=== PATIENT | female | born 1975 | race Two or more races ===

== ENCOUNTER 2019-12-22 17:03 | Outpatient (REF) | payer OTHER, SELFPAY ==
[2019-12-22 18:01] LABS: COVID-19 Test Negative (Negative)
== END 2019-12-22 17:04 | disposition home or self-care (01) ==
LOC: HO.LAB 17:03
PROVIDERS: Visit Provider Internal Medicine
DX: Z20.828 Contact with and (suspected) exposure to other viral communicable diseases (principal)
CPT/HCPCS: 87635

== ENCOUNTER 2019-12-31 16:34 | Outpatient (REF) | payer OTHER, SELFPAY ==
[2019-12-31 17:00] LABS: COVID-19 Test Negative (Negative)
== END 2019-12-31 16:35 | disposition home or self-care (01) ==
LOC: HO.LAB 16:34
PROVIDERS: Visit Provider Internal Medicine
DX: Z20.828 Contact with and (suspected) exposure to other viral communicable diseases (principal)
CPT/HCPCS: 87635

== ENCOUNTER 2021-09-21 20:40 | Outpatient (REF) | payer OTHER, SELFPAY ==
[2021-09-21 22:06] LABS: Influenza A PCR NEGATIVE (Negative); Influenza B PCR NEGATIVE (Negative); Resp Syncy Virus RNA Qual PCR NEGATIVE (Negative); SARS COV2 PCR INHOUSE POSITIVE (Negative)
== END 2021-09-21 20:41 | disposition home or self-care (01) ==
LOC: HO.LAB 20:40
PROVIDERS: Visit Provider Internal Medicine
DX: Z20.822 Contact with and (suspected) exposure to COVID-19 (principal)
CPT/HCPCS: 0241U

== ENCOUNTER 2022-04-01 05:55 | Outpatient (REF) | payer OTHER, SELFPAY ==
[2022-04-01 06:23] LABS: COVID-19 Test Negative (Negative); IDNOW Serial# BCCEAD1C
[2022-04-01 06:24] LABS: IDNOW Serial# 16C4AD1C; Influenza A Negative (Negative); Influenza B2 Positive (Negative)
== END 2022-04-01 05:56 | disposition home or self-care (01) ==
LOC: HO.LAB 05:55
PROVIDERS: Internal Medicine; Visit Provider Emergency Medicine
DX: Z20.822 Contact with and (suspected) exposure to COVID-19 (principal)
CPT/HCPCS: 87502; 87635

== ENCOUNTER 2023-01-02 03:29 | Emergency (ER) | payer OTHER, SELFPAY ==
--- NOTE | ~2023-01-02 | XR_ITS ---
EXAMINATION: XR ANKLE, LEFT CLINICAL INFORMATION: Left ankle injury. COMPARISON: None available. TECHNIQUE: AP, lateral, and mortise views of the left ankle. FINDINGS: The bone mineralization is normal. The joint spaces are maintained. There appears to be mild lateral soft tissue swelling. There is no fracture. XR/XR ankle LT min 3V IMPRESSION: There appears to be mild lateral soft tissue swelling. No acute osseous abnormality.
[2023-01-02 03:32] VITALS: BP 160/89; PULSE 108; RESP 20; TEMP 36.8; O2SAT 98; BMI 25.0
--- NOTE | 2023-01-02 04:33 | PC.NURSE ---
Duane wrap applied to left ankle.
[2023-01-02] MEDS: Ketorolac Tromethamine 60 MG/2 ML VIAL IM (06:29)
--- NOTE | 2023-01-02 06:44 | ED.LOWEXIN ---
HPI - Extremity Injury (Lower) General Chief Complaint: Extremity Injury, Lower Stated Complaint: L Ankle Pain Time Seen by Provider: 01/02/23 06:04 Source: patient Mode of arrival: ambulatory Limitations: no limitations History of Present Illness HPI Narrative: Patient comes to the emergency room complaining of left ankle pain. Patient was walking of a curve, sprain her ankle. Patient complaining of pain with ambulation and swelling around the lateral aspect of the ankle. Patient denies any other injury. Related Data Previous Rx's Medication Instructions Recorded ketorolac 10 mg tablet 10 mg PO TID PRN pain 5 days #14 01/02/23 tabs oxycodone 5 mg tablet 5 mg PO BID PRN pain #6 tabs 01/02/23 Allergies Allergy/AdvReac Type Severity Reaction Status Date / Time Iodinated Contrast Media Allergy Unknown ANAPHYLAXIS Verified 01/02/23 03:32 [CONTRAST, IV] latex [LATEX] Allergy Unknown HIVES Verified 01/02/23 03:32 meperidine [From DEMEROL] Allergy Unknown UNKNOWN Verified 01/02/23 03:32 Review of Systems Review of Systems: Constitutional : No Weight loss, No Fever, No Chills, No Night Sweats, No Fatigue, No Malaise ENT/Mouth : No Hearing loss, No Ear Pain, No Nasal Congestion, No Sinus Pain, No Hoarseness, No sore throat, No Rhinorrhea, No Swallowing Difficulty Eyes: No Eye Pain, No Swelling, No Redness, No Foreign Body, No Discharge, No Vision Changes Cardiovascular : No Chest Pain, No SOB, No Dyspnea on Exertion, No Orthopnea, No Edema, No Palpitations Respiratory : No Cough, No Sputum, No Wheezing, No Smoke Exposure, No Dyspnea Gastrointestinal : No Nausea, No Vomiting, No Diarrhea, No Constipation, No abdominal Pain, No Hematochezia, No Melena Genitourinary : no irregular bleeding, No Dysuria, No Urinary Frequency, No Hematuria, No Urinary Incontinence, No Urgency, No Flank Pain, No Urinary Flow Changes, No Hesitancy Musculoskeletal : Complaining of left ankle pain, No Myalgias, No Joint Swelling Skin : No Skin Lesions, No rash Neuro : No Weakness, No Numbness, No Paresthesias, No Loss of Consciousness, No Dizziness, No Headache Psych : No Anxiety/Panic, No Depression, No SI/HI/AH/VH, No Social Issues, Heme/Lymph: No Bruising, No Bleeding,No Lymphadenopathy Endocrine : No Polyuria, No Polydipsia, No Temperature Intolerance [facility] Past Medical History Medical History (Updated 01/02/23 @ 06:47 by Dorys Membreno MD) Hypertension SLE (systemic lupus erythematosus related syndrome) Social History Social History Advance Directives: No Advance Directives Information Provided: Yes Physical Exam Vital Signs: Vital Signs: Last Vital Signs Temp 98.2 F 01/02/23 03:32 Pulse 108 H 01/02/23 03:32 Resp 20 01/02/23 03:32 BP 160/89 H 01/02/23 03:32 Pulse Ox 98 01/02/23 03:32 O2 Del Method Room Air 01/02/23 03:32 BMI result Body Mass Index 25.0 Const: Other: Appearance: Alert. Oriented X3. No acute distress. Eyes: Pupils equal, round and reactive to light. ENT: Pharynx normal. Neck: Normal inspection. Neck supple. No lymph nodes noted. No crepitus CVS: Normal heart rate and rhythm. Pulses normal. Normal S1 and S2 Respiratory: No respiratory distress. Breath sounds normal. No Wheezing. No rales Abdomen: Soft and nontender. No rigidity. No distention. Skin: Skin warm and dry. Normal skin color. Normal skin turgor. Extremities: There is swelling to the lateral malleolus of the left ankle. Patient able to ambulate but limping Neuro: Oriented X 3. No motor deficit. No sensory deficit. Moving all extremities. No slurred speech. CN 2 through 12 grossly intact Psych: calm, cooperative, normal affect Medications Administered Discontinued Medications Generic Name Dose Route Start Last Admin Trade Name Umerq PRN Reason Stop Dose Admin Ketorolac Tromethamine 60 mg 01/02/23 06:08 01/02/23 06:29 Ketorolac Tromethamine 60 Mg/2 Ml Vial IM 01/02/23 06:09 60 mg ONCE ONE Administration Medical Decision Making Medical Decision Making MDM Narrative: -patient was given IM Toradol -patient provided with postop shoe. -Discussed with the patient to ice rest elevate extremity, early range of motion exercises encouraged without pushing through pain Independent Interpretation I performed an independent interpretation of an: Plain X-Ray Radiology Impression Discussion of test interpretation with radiology: I have reviewed the radiologist's reading. Radiologist Impression: FINDINGS: The bone mineralization is normal. The joint spaces are maintained. There appears to be mild lateral soft tissue swelling. There is no fracture. XR/XR ankle LT min 3V IMPRESSION: There appears to be mild lateral soft tissue swelling. No acute osseous abnormality. Discharge Plan Discharge Clinical Impression: Ankle sprain Patient Disposition: Home, Self-Care Instructions: Ankle Sprain (ED) Additional Instructions: Please follow-up with your primary care physician tomorrow. If you have any worsening or new symptoms, please return to the emergency room or call 911 Prescriptions: New ketorolac 10 mg tablet 10 mg PO TID PRN (Reason: pain) 5 Days Qty: 14 0RF Rx Instructions: Do not use this medication with NSAIDs oxycodone 5 mg tablet 5 mg PO BID PRN (Reason: pain) Qty: 6 0RF Rx Instructions: Partial Fill upon patient request. Only use of ketorolac does not work for pain. avoid using narcotics
== END 2023-01-02 06:57 | disposition home or self-care (01) ==
PROVIDERS: Emergency Provider Emergency Medicine
DX: S93.402A Sprain of unspecified ligament of left ankle, initial encounter (principal); X50.1XXA Overexertion from prolonged static or awkward postures, initial encounter; Y93.9 Activity, unspecified; Y92.9 Unspecified place or not applicable; Y99.9 Unspecified external cause status; Z79.899 Other long term (current) drug therapy
CPT/HCPCS: 73610; 96372; 99283; 99284; J1885

== ENCOUNTER 2023-11-07 17:41 | Inpatient (IN) | payer SELFPAY ==
--- NOTE | ~2023-11-07 | CT_ITS ---
EXAMINATION: CT ABDOMEN AND PELVIS WITHOUT CONTRAST CLINICAL INFORMATION: Right lower quadrant pain COMPARISON: None available. TECHNIQUE: Multidetector volumetric imaging was performed from the superior aspect of the liver through the pubic symphysis. Sagittal and coronal reformatted images were obtained on the technologist's workstation. This CT examination was performed using dose optimization techniques as appropriate, variously including the following: *Automated exposure control *Adjustment of mA and/or kV according to patient size (this includes techniques or standardized protocols for targeted exams where dose is matched to indication/reason for exam; i.e. extremities or head) *Use of iterative reconstruction technique DLP: 400 mGy-cm FINDINGS: LUNG BASES: Partial imaging of a nonspecific 4 mm pulmonary nodule right lung base posteriorly. Minor scarring within the middle lobe. Breast implants partially imaged. No pericardial fluid. LIVER, GALLBLADDER, AND BILIARY TREE: Changes of diffuse hepatic steatosis. Prominent left lobe of the liver. No dominant lesion on this nonenhanced study. Biliary tree normal. The gallbladder is unremarkable with no evidence of radiopaque gallstones, gallbladder wall thickening, or obvious pericholecystic inflammatory changes. PANCREAS: Unremarkable. SPLEEN: Unremarkable. ADRENAL GLANDS: Unremarkable. KIDNEYS AND URETERS: Multiple small bilateral intrarenal calculi without hydronephrosis. Largest left lower pole measuring up to 6 mm. No perinephric abnormality. BLADDER: Unremarkable. GASTROINTESTINAL TRACT: The small and large bowel are unremarkable. The appendix is retrocecal and measures up to 5 mm. There is minimal haziness around the periappendiceal fat which could represent early inflammation. No appendicolith or fluid collection. ABDOMINAL WALL: No significant hernia is appreciated. LYMPH NODES: Normal. VASCULAR: Unremarkable. PELVIC VISCERA: Unremarkable. OSSEOUS STRUCTURES: Unremarkable. CT/CT abdomen pelvis wo IV con IMPRESSION: 1. The appendix is retrocecal and measures up to 5 mm. There is minimal haziness around the periappendiceal fat which could represent early inflammation. No appendicolith or fluid collection. 2. Bilateral nonobstructing renal calculi. 3. Hepatic steatosis. Nonspecific right lower lobe pulmonary nodule. According to the UPDATED 2017 Fleischner Society recommendations, the advised follow-up imaging for Right solid pulmonary nodule measuring 4 mm. Per Fleischner Society Guidelines, no routine follow-up imaging is recommended. These guidelines do not apply to immunocompromised patients and patients with cancer. Follow up in patients with significant comorbidities as clinically warranted. For lung cancer screening, adhere to Lung-RADS guidelines. Reference: Radiology. 2017; 284(1):228-43. Fleischner guidelines were followed. Electronically signed by: Laz Abbott MD 11/07/2023 09:12 PM EDT
--- NOTE | ~2023-11-07 | US_ITS ---
EXAMINATION: US PELVIS CLINICAL INFORMATION: Right lower quadrant pain COMPARISON: None available. TECHNIQUE: Ultrasound of the pelvis is performed using both transabdominal and transvaginal transducers along with Doppler. Transvaginal imaging is performed due to inadequate visualization transabdominally. FINDINGS: Uterus: The uterus is anteverted and measures 6.8 x 2.8 x 3.2 cm. The double wall endometrial thickness is 3 mm. The uterus is smooth in contour and has normal myometrial echogenicity. No visible fibroid. Adnexa: Right ovary normal at 2 mL's in volume. Normal flow. No adnexal lesion. Left ovary absent consistent with surgical history. There is no pelvic ascites or fluid collection. US/US pelvic and transvaginal IMPRESSION: No focal lesion. Electronically signed by: Laz Abbott MD 11/07/2023 09:15 PM EDT
[2023-11-07 17:43] VITALS: BP 180/112; PULSE 92; RESP 18; TEMP 36.4; O2SAT 98; BMI 24.6
--- NOTE | 2023-11-07 17:44 | ED.GENADULT ---
HPI - General Adult General Chief complaint: Abdominal Pain Stated complaint: RT abd pain Time Seen by Provider: 11/07/23 17:54 Source: patient Mode of arrival: ambulatory Limitations: no limitations History of Present Illness HPI narrative: Patient is a 48-year-old female with past medical history of breast cancer s/p double mastectomy and chemotherapy in 2015, ovarian cysts, right oophorectomy, history of peripartum cardiomyopathy in 2007 presents to the emergency department for evaluation. Reports over the past 4 days she has been experiencing hypertension, SBP 180s despite taking her lisinopril 20 mg. She has even increased it to 40 mg over the past few days without any improvement. She reports that today she awoke from a nap this afternoon and she was experiencing pain to her right lower abdomen with associated nausea. Pain has progressively worsened and increased in intensity. She admits to a history of ruptured ovarian cysts in the past resulting in an oophorectomy on the right. Endorses having a uterine ablation in or around 2009, and has subsequently not had a menstrual period since then. Denies fevers or chills. Denies symptoms. Denies abnormal vaginal pain or discharge. No vaginal bleeding. Related Data Previous Rx's ?Medication ?Instructions ?Recorded ketorolac 10 mg tablet 10 mg PO TID PRN pain 5 days #14 01/02/23 tabs oxycodone 5 mg tablet 5 mg PO BID PRN pain #6 tabs 01/02/23 cefuroxime axetil 500 mg tablet 500 mg PO BID 10 days #20 tabs 01/20/23 Allergies Allergy/AdvReac Type Severity Reaction Status Date / Time Iodinated Contrast Media Allergy Unknown ANAPHYLAXIS Verified 11/07/23 17:45 [CONTRAST, IV] latex [LATEX] Allergy Unknown HIVES Verified 11/07/23 17:45 meperidine [From DEMEROL] Allergy Unknown UNKNOWN Verified 11/07/23 17:45 Review of Systems Review of Systems: Yes all other systems are reviewed and are negative PMFSH Past Medical History Attestation statement: The following information was validated with the patient. Source: old records reviewed Medical History Hypertension SLE (systemic lupus erythematosus related syndrome) Social History Social History Smoked in Last 30 Days: No Use of substances other than those prescribed or required for medical reasons: No Advance Directives: No Advance Directives Information Provided: No Do you have a plan to hurt others: No Plan Patient : No Physical Exam ED Vital Signs: Vital Signs - 24 hr 11/07/23 17:43 11/07/23 18:49 11/07/23 21:35 Temperature 97.6 F 98.1 F Pulse Rate 92 91 90 Respiratory Rate 18 20 17 Blood Pressure 180/112 H 188/110 H 173/95 H Pulse Oximetry 98 98 90 L Oxygen Delivery Method Room Air Room Air Room Air BMI result Body Mass Index 24.6 Appearance: Alert.?Oriented to person, place and time. No acute distress.?Normal affect. Eyes: Pupils equal, round and reactive to light.? ENT: Pharynx normal.?? Neck: Normal inspection.? Neck supple.?? CVS: Heart sounds normal. Normal heart rate and rhythm.? Pulses normal.?? Respiratory: No respiratory distress.? Lung sounds clear to auscultation bilaterally?? Abdomen: Soft with right lower quadrant tenderness upon palpation, no rebound tenderness. Positive guarding, Normoactive bowel sounds. No pulsatile mass.?? Skin: Skin warm and dry.? Normal skin color.? Extremities: No lower extremity edema.? Neuro: Moves all extremities spontaneously. Sensation intact bilaterally. Ambulates with normal steady gait. Course Course Course Narrative: RME performed by Mona Flowers PA-C. Patient is a 48 year old assigned female at presenting to the emergency department with abdominal pain. Patient states she has been having some significant abdominal pain over the last day. Detailed physical exam and review of systems are deferred to the house painter helper. Labs, imaging, and swabs ordered. Patient placed back in the waiting room pending room availability and results. Reevaluation(s) Reevaluation #1: Reviewed CT imaging, did not see acute changes to suggest appendicitis, reviewed this with my attending doctor's 80. Obtaining pelvic ultrasound for possible ovarian etiology. Pain persist despite ketorolac, will trial management with morphine at this time. Hypertension has improved 156/93 Reevaluation #2: Patient signed out to ED attending Dr. Baez pending CT AP an ultrasound impression and re-evaluation. Time: 21:03 Reevaluation #3: The patient was signed out to me at change of shift pending the results of a CT scan of the abdomen and pelvis and also an ultrasound of the pelvis. The patient has a history of a left oophorectomy. The CT scan had an equivocal finding of possible early appendicitis. The ultrasound of the pelvis showed no acute findings. On exam the patient is really quite tender in her right lower quadrant. The patient has a mildly abnormal urinalysis but she denies urinary symptoms such as dysuria, urgency, or frequency. Given the degree of tenderness in the absence of any good alternative diagnosis I have some concern the patient is problem is really early appendicitis. I consulted Dr. Esquivel of General surgery. The plan will be to hospitalize the patient for IV antibiotics and further evaluation. I have ordered ceftriaxone and metronidazole. Time: 21:52 Medications Administered Discontinued Medications Generic Name Dose Route Start Last Admin Trade Name Freq PRN Reason Stop Dose Admin Sodium Chloride 1,000 mls @ 999 mls/hr 11/07/23 18:45 11/07/23 20:15 Ns IV 11/07/23 19:45 Infused .Q1H1M ALEXIS Infusion Ketorolac Tromethamine 15 mg 11/07/23 18:37 11/07/23 18:54 Ketorolac Tromethamine 15 Mg/Ml Vial IVPUSH 11/07/23 18:38 15 mg ONCE ONE Administration Morphine Sulfate 4 mg 11/07/23 20:06 11/07/23 20:11 Morphine Sulfate 4 Mg/Ml Cartridge IVPUSH 11/07/23 20:07 4 mg ONCE ONE Administration Protocol Ondansetron HCl 4 mg 11/07/23 18:37 11/07/23 18:54 Ondansetron Hcl 4 Mg/2 Ml Vial IVPUSH 11/07/23 18:38 4 mg ONCE ONE Administration Medical Decision Making Medical Decision Making [facility] Narrative: Patient is a 48-year-old female with past medical history of breast cancer s/p double mastectomy and chemotherapy in 2016, ovarian cysts, right oophorectomy, history of peripartum cardiomyopathy in 2008 presents emergency department for evaluation of sudden-onset right lower quadrant pain today as per HPI and uncontrolled hypertension. Will obtain CBC to evaluate for leukocytosis/ anemia, CMP and lipase to evaluate for abnormal electrolytes /abnormal renal function/ abnormal hepatic/biliary function, CT AP and Urinalysis. Differential Diagnosis Differential Diagnoses: The differential diagnosis associated with the presentation includes (Appendicitis, colitis, less likely obstruction, ovarian cyst, ruptured ovarian cyst, ovarian torsion, less likely TOA, UTI, pyelonephritis) Admission/Observation Consideration of admission/observation: Escalation of care including admission/observation considered Lab Data MDM Lab Attestation statement: I reviewed the patient's lab results. CBC is without leukocytosis, anemia, or thrombocytopenia. 11/07/23 18:02 11/07/23 18:50 Labs: Lab Results 11/07/23 11/07/23 11/07/23 Range/Units 18:02 18:21 18:40 WBC 10.3 (4.8-10.8) X10*3/uL RBC 4.25 (4.20-5.50) X10*6/uL Hgb 13.3 (12.0-16.0) g/dl Hct 37.8 (37.0-47.0) % MCV 88.9 (80.0-98.0) fL MCH 31.3 (27.0-33.0) pg MCHC 35.2 H (31.0-35.0) g/dl RDW 13.2 (11.0-16.0) % Plt Count 204 (160-400) X10*3/uL MPV 10.1 (9.4-12.3) fL Immature Gran % (Auto) 0.5 H (0.0-0.4) % Neut % (Auto) 69.9 (45-73) % Lymph % (Auto) 23.7 (20-40) % Gilchrist % (Auto) 4.1 (2-11) % Eos % (Auto) 1.3 (0-4) % Baso % (Auto) 0.5 (0-2) % Lymph # (Auto) 2.4 (1.2-4.9) X10*3/uL Gilchrist # (Auto) 0.4 (0.1-1.2) X10*3/uL Eos # (Auto) 0.1 (0.0-0.4) X10*3/uL Baso # (Auto) 0.1 (0.0-0.2) X10*3/uL Abs Immat Gran (auto) 0.05 H (0.00-0.03) X10*3/uL Absolute Neuts (auto) 7.2 (2.0-8.3) x10*3/uL Absolute Nucleated RBC 0.000 (0.0-0.012) X10*3/uL Nucleated RBC % (auto) 0.0 (0.0-0.2) /100WBC Smear Tech's Comments VERIFIED Hold Purple Top SEE NOTE PT 12.5 (11.1-13.3) SEC INR 1.0 (0.9-1.1) APTT 26.7 (26.0-36.8) SEC Hold Blue Top Sodium (135-145) mmol/L Potassium (3.3-5.1) mmol/L Chloride (96-108) mmol/L Carbon Dioxide (22-29) mmol/L Anion Gap (12-20) BUN (9-16) mg/dL Creatinine (0.5-1.4) mg/dL Estim Creat Clear Calc Estimated GFR Random Glucose (60-115) mg/dL Calcium (8.4-10.2) mg/dL Magnesium (1.6-2.6) mg/dL Total Bilirubin (0.0-1.0) mg/dL AST (5-31) U/L ALT (0-31) U/L Alkaline Phosphatase (39-117) U/L Troponin I High Sens (<3.5-17.0) ng/L C-Reactive Protein (< or = 0.50) mg/dL Total Protein (6.5-8.0) g/dL Albumin (3.5-5.0) g/dL Beta HCG, Quant mIU/mL Urine Color Urine Appearance Urine pH (5.0-9.0) Ur Specific [place] (1.005-1.025) Urine Protein (Neg-Trace) mg/dL Urine Glucose (UA) (Negative) mg/dL Urine Ketones (Negative) mg/dL Urine Blood (Negative) Urine Nitrite (Negative) Ur Leukocyte Esterase (Negative) Urine RBC (0-2) /HPF Urine WBC (0-5) /HPF Ur Squamous Epith Cells (0-2) /HPF Urine Bacteria (None Seen) Hyaline Casts (0-2) /LPF Influenza Type A (PCR) NEGATIVE (Negative) Influenza Type B (PCR) NEGATIVE (Negative) RSV RNA Qual (PCR) NEGATIVE (Negative) SARS-CoV-2 RNA (RT-PCR) NEGATIVE (Negative) 11/07/23 11/07/23 Range/Units 18:45 18:50 WBC (4.8-10.8) X10*3/uL RBC (4.20-5.50) X10*6/uL Hgb (12.0-16.0) g/dl Hct (37.0-47.0) % MCV (80.0-98.0) fL MCH (27.0-33.0) pg MCHC (31.0-35.0) g/dl RDW (11.0-16.0) % Plt Count (160-400) X10*3/uL MPV (9.4-12.3) fL Immature Gran % (Auto) (0.0-0.4) % Neut % (Auto) (45-73) % Lymph % (Auto) (20-40) % Gilchrist % (Auto) (2-11) % Eos % (Auto) (0-4) % Baso % (Auto) (0-2) % Lymph # (Auto) (1.2-4.9) X10*3/uL [place] # (Auto) (0.1-1.2) X10*3/uL Eos # (Auto) (0.0-0.4) X10*3/uL Baso # (Auto) (0.0-0.2) X10*3/uL Abs Immat Gran (auto) (0.00-0.03) X10*3/uL Absolute Neuts (auto) (2.0-8.3) x10*3/uL Absolute Nucleated RBC (0.0-0.012) X10*3/uL Nucleated RBC % (auto) (0.0-0.2) /100WBC Smear Tech's Comments Hold Purple Top SEE NOTE PT (11.1-13.3) SEC INR (0.9-1.1) APTT (26.0-36.8) SEC Hold Blue Top SEE NOTE Sodium 141 (135-145) mmol/L Potassium 3.7 (3.3-5.1) mmol/L Chloride 105 (96-108) mmol/L Carbon Dioxide 24 (22-29) mmol/L Anion Gap 16 (12-20) BUN 16 (9-16) mg/dL Creatinine 0.97 (0.5-1.4) mg/dL Estim Creat Clear Calc 57.9 Estimated GFR > 60 Random Glucose 95 (60-115) mg/dL Calcium 9.4 (8.4-10.2) mg/dL Magnesium 1.9 (1.6-2.6) mg/dL Total Bilirubin 0.4 (0.0-1.0) mg/dL AST 26 (5-31) U/L ALT 28 (0-31) U/L Alkaline Phosphatase 68 (39-117) U/L Troponin I High Sens < 2.7 (<3.5-17.0) ng/L C-Reactive Protein 0.27 (< or = 0.50) mg/dL Total Protein 7.5 (6.5-8.0) g/dL Albumin 4.2 (3.5-5.0) g/dL Beta HCG, Quant < 2 mIU/mL Urine Color Yellow Urine Appearance Clear Urine pH 7.5 (5.0-9.0) Ur Specific [place] 1.010 (1.005-1.025) Urine Protein Negative (Neg-Trace) mg/dL Urine Glucose (UA) Negative (Negative) mg/dL Urine Ketones Negative (Negative) mg/dL Urine Blood Negative (Negative) Urine Nitrite Negative (Negative) Ur Leukocyte Esterase Moderate (2+) H (Negative) Urine RBC 0-2 (0-2) /HPF Urine WBC 21-50 H (0-5) /HPF Ur Squamous Epith Cells 0-2 (0-2) /HPF Urine Bacteria None Seen (None Seen) Hyaline Casts 0-2 (0-2) /LPF Influenza Type A (PCR) (Negative) Influenza Type B (PCR) (Negative) RSV RNA Qual (PCR) (Negative) SARS-CoV-2 RNA (RT-PCR) (Negative) Radiology Impression Discussion of test interpretation with radiology: I have reviewed the radiologist's reading. External Record Review External record reviewed: Outpatient record Discharge Plan Discharge Clinical Impression: Abdominal pain Prescriptions: No Action ketorolac 10 mg tablet 10 mg PO TID PRN (Reason: pain) 5 Days Qty: 14 0RF Rx Instructions: Do not use this medication with NSAIDs oxycodone 5 mg tablet 5 mg PO BID PRN (Reason: pain) Qty: 6 0RF Rx Instructions: Partial Fill upon patient request. Only use of ketorolac does not work for pain. avoid using narcotics cefuroxime axetil 500 mg tablet 500 mg PO BID 10 Days Qty: 20 0RF Print Language: [place] Zealander
--- NOTE | 2023-11-07 17:45 | ECG_ITS ---
Test Reason : ABD PAIN Blood Pressure : / mmHG Vent. Rate : 093 BPM Atrial Rate : 093 BPM P-R Int : 134 ms QRS Dur : 092 ms QT Int : 386 ms P-R-T Axes : 044 024 018 degrees QTc Int : 479 ms Normal sinus rhythm Normal ECG When compared with ECG of 17-JUN-2019 12:26, T wave inversion no longer evident in Anterior leads Referred By: Mona Flowers Electronically Signed By:CAROLYN FU
[2023-11-07 18:29] LABS: Eosinophils Percent Auto 1.3 % (0-4); Imm Gran Abs Auto 0.05 X10*3/uL (0.00-0.03); Imm Gran Pct Auto 0.5 % (0.0-0.4); MANUAL DIFF FLAG SCAN; PLT CLUMP 1; Red Blood Count 4.25 X10*6/uL (4.20-5.50); SCAN SMEAR FLAG 1
[2023-11-07 18:31] LABS: Basophils Absolute Auto 0.1 X10*3/uL (0.0-0.2); Basophils Percent Auto 0.5 % (0-2); Eosinophils Absolute Auto 0.1 X10*3/uL (0.0-0.4); Hematocrit 37.8 % (37.0-47.0); Hemoglobin 13.3 g/dl (12.0-16.0); Lymphocytes Absolute Auto 2.4 X10*3/uL (1.2-4.9); Lymphocytes Percent Auto 23.7 % (20-40); Mean Corpuscular HGB Conc 35.2 g/dl (31.0-35.0); Mean Corpuscular Hemoglobin 31.3 pg (27.0-33.0); Mean Corpuscular Volume 88.9 fL (80.0-98.0); Mean Platelet Volume 10.1 fL (9.4-12.3); Monocytes Absolute Auto 0.4 X10*3/uL (0.1-1.2); Monocytes Percent Auto 4.1 % (2-11); Neutrophils Absolute Auto 7.2 x10*3/uL (2.0-8.3); Neutrophils Percent Auto 69.9 % (45-73); Red Cell Distribution Width 13.2 % (11.0-16.0); White Blood Count 10.3 X10*3/uL (4.8-10.8)
[2023-11-07 18:32] LABS: Platelet Count 204 X10*3/uL (160-400)
[2023-11-07 18:42] LABS: SLIDE REVIEW VERIFIED
[2023-11-07 18:49] VITALS: BP 188/110; PULSE 91; RESP 20; O2SAT 98
[2023-11-07] MEDS: ondansetron HCL 4 MG/2 ML VIAL IVPUSH (18:54)
[2023-11-07] MEDS: Ketorolac Tromethamine 15 MG/ML VIAL IVPUSH (18:54)
[2023-11-07] MEDS: 0.9 % Sodium Chloride 1,000 ML 999 ML IV (18:59)
[2023-11-07 19:02] LABS: Influenza A PCR NEGATIVE (Negative); Influenza B PCR NEGATIVE (Negative); Resp Syncy Virus RNA Qual PCR NEGATIVE (Negative); SARS COV2 PCR INHOUSE NEGATIVE (Negative)
[2023-11-07 19:06] LABS: Prothrombin Time 12.5 SEC (11.1-13.3)
[2023-11-07 19:09] LABS: Partial Thromboplastin Time 26.7 SEC (26.0-36.8)
[2023-11-07 19:18] LABS: Appearance Urine Clear; Color Urine Yellow; Glucose Urine UA Negative (Negative); Leukocyte Esterase Urine Moderate (2+) (Negative); Nitrite Urine Negative (Negative); PH 7.5 (5.0-9.0); UMIC TRIGGER UACC YES; Urine Blood Negative (Negative); Urine Ketones Negative (Negative); Urine Protein Negative (Neg-Trace)
[2023-11-07 19:19] LABS: Alanine Aminotransferase 28 U/L (0-31); Albumin Level 4.2 g/dL (3.5-5.0); Alkaline Phosphatase 68 U/L (39-117); Anion Gap 16 (12-20); Aspartate Amino Transferase 26 U/L (5-31); Bilirubin Total 0.4 mg/dL (0.0-1.0); Blood Urea Nitrogen 16 mg/dL (9-16); Calcium 9.4 mg/dL (8.4-10.2); Carbon Dioxide 24 mmol/L (22-29); Chloride 105 mmol/L (96-108); Creatinine Clr Calc Pharmacy 57.9; Estimated Glomerular Filt Rate > 60; Glucose Random 95 mg/dL (60-115); Magnesium 1.9 mg/dL (1.6-2.6); Potassium 3.7 mmol/L (3.3-5.1); Sodium 141 mmol/L (135-145); Total Protein 7.5 g/dL (6.5-8.0)
[2023-11-07 19:20] LABS: HCG Quantitative < 2 mIU/mL; Troponin-I High Sensitivity < 2.7 ng/L (<3.5-17.0)
[2023-11-07 19:25] LABS: Bacteria Urine None Seen (None Seen); Hyaline Casts Urine 0-2 /LPF (0-2); RBC Urine 0-2 /HPF (0-2); Squamous Epithelial Cell Urine 0-2 /HPF (0-2); UACC Culture Trigger YES; WBC Urine 21-50 /HPF (0-5)
--- NOTE | 2023-11-07 19:35 | PC.NURSE ---
Report taken from Louise DAILY, assumed care of pt at this time. A&Ox3 skin pwd respirations even unlabored endorsing continued RLQ pain despite previously administered pain med. IVF infusing without difficulty, awaiting CT aware of plan of care.
[2023-11-07] MEDS: Morphine Sulfate 4 MG/ML CARTRIDGE IVPUSH (20:11)
--- NOTE | 2023-11-07 20:19 | PC.NURSE ---
Pt medicated with additional pain med for 8 RLQ pain. Off floor to US.
[2023-11-07 21:35] VITALS: BP 173/95; PULSE 90; RESP 17; TEMP 36.7; O2SAT 90
[2023-11-07 21:38] LABS: C Reactive Protein 0.27 mg/dL (< or = 0.50)
--- NOTE | 2023-11-07 22:16 | MHC.EDTECH ---
Patient belongings list completed and placed in room 14 chart
[2023-11-07] MEDS: Acetaminophen 1,000 MG/100 ML PIGGYBACK 400 MG IV (22:17)
--- NOTE | 2023-11-07 22:22 | PHA.MEDREC ---
Addendum entered by Iker Scott [facility] 11/07/23 22:34: MED REC CHECKED BY [facility] Original Note: Pharmacy Consult ? Medication Reconciliation Pharmacy has completed the medication reconciliation. Spoke to patient to confirm med list. Patient states she took 40 mg of Lisinopril today because she needed it, otherwise she is on Lisinopril 20 mg daily.
--- NOTE | 2023-11-07 22:32 | MHC.EDTECH ---
Patient NPO per RN
[2023-11-07] MEDS: cefTRIAXone sodium 2 GM in 0.9 % Sodium Chloride 50 ML IV (22:43)
--- NOTE | 2023-11-07 22:54 | PC.NURSE ---
Pt to be admitted. IV tylenol admin with some relief, IV abx hung and infusing without difficulty. Awaiting bed assignment for admission, aware of plan of care.
[2023-11-07] MEDS: metroNIDAZOLE/NS 500 MG/100 ML PIGGYBACK 100 MG IV (23:18)
--- NOTE | 2023-11-07 23:25 | MHC.EDTECH ---
This tech took over care at [id number]
[2023-11-07] MEDS: HYDROmorphone HCl 0.5 MG/0.5 ML SYRINGE IVPUSH (23:35)
[2023-11-07 23:47] VITALS: BP 123/77; PULSE 88; RESP 16; O2SAT 98
[2023-11-08] VITALS (9 sets, daily range): BP systolic 150–182; BP diastolic 76–94; PULSE 68–79; RESP 12–18; TEMP 36–36.3; O2SAT 95–98
[2023-11-08] MEDS: Dextrose 5 % and Lactated Ring 1,000 ML 125 ML IVCONT ×4 (00:32→23:46)
[2023-11-08] MEDS: Flu Vacc TS2024-25(6mos up)/PF 0.5 ML SYRINGE IM (00:38)
[2023-11-08] MEDS: 0.9 % Sodium Chloride Flush 3 ML SYRINGE IVFLUSH (00:50)
[2023-11-08] MEDS: oxyCODONE HCl Immed Release 5 MG TABLET PO ×4 (00:50→23:11)
[2023-11-08] MEDS: Acetaminophen 1,000 MG/100 ML PIGGYBACK 400 MG IV ×3 (06:13→17:24)
[2023-11-08 06:31] LABS: MANUAL DIFF FLAG NO
[2023-11-08] MEDS: metroNIDAZOLE/NS 500 MG/100 ML PIGGYBACK 100 MG IV ×3 (06:31→23:46)
[2023-11-08 06:53] LABS: Basophils Percent Auto 0.2 % (0-2); Eosinophils Absolute Auto 0.1 X10*3/uL (0.0-0.4); Eosinophils Percent Auto 1.5 % (0-4); Hematocrit 33.8 % (37.0-47.0); Hemoglobin 11.4 g/dl (12.0-16.0); Imm Gran Abs Auto 0.04 X10*3/uL (0.00-0.03); Imm Gran Pct Auto 0.5 % (0.0-0.4); Lymphocytes Absolute Auto 1.6 X10*3/uL (1.2-4.9); Mean Corpuscular HGB Conc 33.7 g/dl (31.0-35.0); Mean Corpuscular Hemoglobin 30.5 pg (27.0-33.0); Mean Corpuscular Volume 90.4 fL (80.0-98.0); Mean Platelet Volume 9.4 fL (9.4-12.3); Monocytes Absolute Auto 0.5 X10*3/uL (0.1-1.2); Monocytes Percent Auto 5.5 % (2-11); Neutrophils Absolute Auto 6.3 x10*3/uL (2.0-8.3); Neutrophils Percent Auto 73.3 % (45-73); Platelet Count 164 X10*3/uL (160-400); Red Blood Count 3.74 X10*6/uL (4.20-5.50); Red Cell Distribution Width 13.4 % (11.0-16.0); White Blood Count 8.6 X10*3/uL (4.8-10.8)
--- NOTE | 2023-11-08 07:55 | PM.HPGS ---
History of Present Illness History of Present Illness Date of Service: 11/08/23 Chief complaint: Acute appendicitis Narrative: Megan Sanders is a 48 year old female presenting with complaints of abdominal pain in the right lower quadrant which began suddenly in the afternoon yesterday (11/07/2023). The pain was associated with nausea and anorexia and increased in severity throughout the day. She denied fever or chills. She did have a prior history of a ruptured ovarian cyst on the left side resulting in oophorectomy. She also has a past history of breast cancer and has previously undergone bilateral mastectomy and chemotherapy in 2016; peripartum cardiomyopathy in 2007, and hypertension. The pain is noted to increase with movement but remains mainly in the right lower quadrant. Workup in the emergency department did reveal a normal WBC of 10.3. CT abdomen and pelvis revealed the appendix in a retrocecal location measuring 5 mm with minimal haziness around the periappendiceal fat which could represent early appendicitis. No appendicolith or fluid collection was then identified. Findings were felt to possibly be early appendicitis. Pelvic ultrasound revealed a normal right ovary and absent left ovary, no pelvic fluid collections. She was admitted to the surgical service for further management of this possible early acute appendicitis. This morning she feels somewhat improved although does note the pain to increase when her pain medication wears off. She denies any fever or chills. Review of Systems Review of Systems: Yes all other systems are reviewed and are negative Constitutional: Constitutional: Denies chills, Denies fever(s), Denies headache(s), Reports poor appetite and Denies weakness ENT: Denies headache(s) Cardiovascular: Cardiovascular: Denies chest pain, Denies irregular heart rhythm, Denies palpitations and Denies dyspnea Respiratory: Respiratory: Denies cough, Denies excessive phlegm production and Denies dyspnea Gastrointestinal: Gastrointestinal: Reports as per HPI, Reports abdominal pain, Denies bloating, Denies change in bowel habits, Denies constipation, Denies heartburn, Denies diarrhea, Reports nausea and Denies vomiting Genitourinary: Genitourinary: Denies urinary frequency Musculoskeletal: Musculoskeletal: Denies back pain, Denies muscle weakness and Denies numbness Integumentary/Breasts: Skin/Breast: Denies changing lesions and Denies unusual bruising Neurologic: Denies headache(s), Denies numbness, Denies paresthesias and Denies weakness Endocrine: Endocrine: Denies palpitations Hematologic/Lymphatic: Hematologic/Lymphatic: Denies lymphadenopathy [facility] Past Medical History Medical History (Updated 11/08/23 @ 08:15 by Diaz Esquivel MD) Breast cancer Hypertension SLE (systemic lupus erythematosus related syndrome) Surgical History Surgical History (Updated 11/08/23 @ 08:06 by Diaz Esquivel MD) History of left oophorectomy H/O breast reconstruction H/O bilateral mastectomy Social History Social History Household Members: Spouse Housing: House Do you presently have visiting nurse or other home services: No Patient Tobacco Use Status: Never used Tobacco Smoked in Last 30 Days: No Use of substances other than those prescribed or required for medical reasons: No Have you been hit, kicked, punched, or otherwise hurt by someone within the past year? If so, by whom?: No Do you feel safe in your current relationship?: Yes Is there a partner from a previous relationship who is making you feel unsafe now?: No Are you made to feel afraid or neglected: No Advance Directives: No Advance Directives Information Provided: No Do you have a plan to hurt others: No Plan Recently lost weight without trying: No Eating poorly because of decreased appetite: No Nutrition Risks: No Nutritional Risk Patient : No : No Poor oral hygiene: No Meds Allergies Allergy/AdvReac Type Severity Reaction Status Date / Time Iodinated Contrast Media Allergy Unknown ANAPHYLAXIS Verified 11/07/23 17:45 [CONTRAST, IV] latex [LATEX] Allergy Unknown HIVES Verified 11/07/23 17:45 meperidine [From DEMEROL] Allergy Unknown UNKNOWN Verified 11/07/23 17:45 Active Medications: Current Medications Calcium Carbonate (Calcium Carbonate 750 Mg Tab.Chew) 750 mg PO Q4H PRN PRN Reason: Heartburn Hydromorphone HCl (Hydromorphone Hcl 0.5 Mg/0.5 Ml Syringe) 0.5 mg IVPUSH Q3H PRN; Protocol PRN Reason: Pain, Severe (Pain Scale 7-10) Last Admin: 11/07/23 23:35 Dose: 0.5 mg Acetaminophen (Ofirmev) 1,000 mg in 100 mls @ 400 mls/hr IV Q6H [facility] Stop: 11/09/23 00:14 Last Infusion: 11/08/23 06:32 Dose: Infused Dextrose/Lactated Ringer's (D5lr) 1,000 mls @ 125 mls/hr IVCONT .Q8H [facility] Last Infusion: 11/08/23 07:46 Dose: 125 mls/hr Ceftriaxone Sodium 1 gm/ (Sodium Chloride) 50 mls @ 100 mls/hr IV Q12H [facility] Metronidazole (Flagyl) 500 mg in 100 mls @ 100 mls/hr IV Q8H [facility] Last Infusion: 11/08/23 07:46 Dose: Infused Magnesium Hydroxide (Milk Of Magnesia 30 Ml Oral.Susp) 30 ml PO DAILY PRN PRN Reason: Constipation Ondansetron HCl (Ondansetron Hcl 4 Mg/2 Ml Vial) 4 mg IVPUSH Q8H PRN PRN Reason: Nausea Oxycodone HCl (Oxycodone Hcl Immed Release 5 Mg Tablet) 5 mg PO Q6H PRN PRN Reason: Pain, Moderate(Pain Scale 4-6) Last Admin: 11/08/23 06:29 Dose: 5 mg Sodium Chloride (0.9 % Sodium Chloride Flush 3 Ml Syringe) [facility] Last Admin: 11/08/23 07:25 Dose: Not Given Zolpidem Tartrate (Zolpidem Tartrate 5 Mg Tablet) 5 mg PO BEDTIME PRN PRN Reason: Insomnia Home Medications ?Medication ?Instructions ?Recorded ?Confirmed ?Last Taken ?Type gabapentin 100 mg capsule 100 mg PO DAILY PRN Pain 11/07/23 11/07/23 Unknown History gabapentin 100 mg capsule 200 mg PO BEDTIME PRN Pain 11/07/23 11/07/23 Unknown History lisinopril 20 mg tablet 20 mg PO DAILY 11/07/23 11/07/23 11/07/23 History trazodone 50 mg tablet 25 mg PO BEDTIME 11/07/23 11/07/23 11/06/23 History Physical Exam Vital Signs: Vital Signs: Last Vital Signs Temp 97.2 F 11/08/23 04:00 Pulse 72 11/08/23 04:00 Resp 14 11/08/23 04:00 BP 150/77 H 11/08/23 04:00 Pulse Ox 97 11/08/23 04:00 O2 Del Method Room Air 11/08/23 04:00 BMI result Body Mass Index 24.6 Const: General: cooperative and no acute distress Nutritional Appearance: well nourished Orientation/consciousness: patient oriented x3 Limitations: no limitations HEENT: Head: Yes normocephalic and Yes atraumatic Ears: hearing grossly normal bilaterally Resp: Effort & Inspection: normal respiratory effort, no audible wheezes, no cough and no respiratory distress Cardio: Jugular venous distension: no JVD GI: Inspection: Yes normal to inspection Palpation (GI): Soft to palpation, Tenderness to palpation present (GI) in the RLQ and Rovsing's sign positive; with no rebound tenderness, no guarding and not rigid Skin: Other: Warm, dry, no rash Neuro: General: patient oriented x3 Extrem: General: Yes no clubbing, cyanosis or edema Results Results Labs: Short CBC 11/07/23 11/08/23 Range/Units 18:02 05:30 WBC 10.3 8.6 (4.8-10.8) X10*3/uL Hgb 13.3 11.4 L (12.0-16.0) g/dl Hct 37.8 33.8 L (37.0-47.0) % Plt Count 204 164 (160-400) X10*3/uL BMP 11/07/23 18:50 Sodium 141 Potassium 3.7 Chloride 105 Carbon Dioxide 24 BUN 16 Creatinine 0.97 Calcium 9.4 Liver Function 11/07/23 Range/Units 18:50 Total Bilirubin 0.4 (0.0-1.0) mg/dL AST 26 (5-31) U/L ALT 28 (0-31) U/L Alkaline Phosphatase 68 (39-117) U/L Albumin 4.2 (3.5-5.0) g/dL Urine 11/07/23 Range/Units 18:45 Urine Color Yellow Urine Appearance Clear Urine pH 7.5 (5.0-9.0) Ur Specific [place] 1.010 (1.005-1.025) Urine Protein Negative (Neg-Trace) mg/dL Urine Glucose (UA) Negative (Negative) mg/dL Additional studies: CT abdomen and pelvis: CT/CT abdomen pelvis wo IV con IMPRESSION: 1. The appendix is retrocecal and measures up to 5 mm. There is minimal haziness around the periappendiceal fat which could represent early inflammation. No appendicolith or fluid collection. 2. Bilateral nonobstructing renal calculi. 3. Hepatic steatosis. Nonspecific right lower lobe pulmonary nodule. According to the UPDATED 2017 Fleischner Society recommendations, the advised follow-up imaging for Right solid pulmonary nodule measuring 4 mm. Per Fleischner Society Guidelines, no routine follow-up imaging is recommended. These guidelines do not apply to immunocompromised patients and patients with cancer. Follow up in patients with significant comorbidities as clinically warranted. For lung cancer screening, adhere to Lung-RADS guidelines. Reference: Radiology. 2017; 284(1):228-43. Fleischner guidelines were followed. Electronically signed by: Laz Abbott MD 11/07/2023 09:12 PM EDT RP Assessment and Plan (1) Acute appendicitis: Qualifiers: Acute appendicitis type: with localized peritonitis Appendicitis gangrene presence: without gangrene Appendicitis perforation presence: without perforation Appendicitis abscess presence: without abscess Qualified Code(s): K35.30 - Acute appendicitis with localized peritonitis, without perforation or gangrene Status: Acute (2) Hypertension: Qualifiers: Hypertension type: primary hypertension Qualified Code(s): I10 - Essential (primary) hypertension Status: Acute Plan 48-year-old female patient presenting with complaints of abdominal pain in the right lower quadrant which began on 11/07/2023 and awoke the patient from sleep. Pain was mainly located in the right lower quadrant and was associated with nausea without fever or chills. On examination the patient is noted to be tender in the right lower quadrant with a positive Rovsing sign. CT abdomen and pelvis confirms inflammatory changes of the periappendiceal fat suggestive of early appendicitis. No fecalith is identified. Hypertension: Will consult hospitalist for further management. Quality Stroke Does the patient have a stroke diagnosis?: No VTE Prior VTE?: No VTE Risk Level:: Surgical - low VTE Device Contraindication: N/A - Device Ordered VTE Drug Contraindication: Treatment Not Indicated Procedures Date of Service Date of Service: 11/08/23
[2023-11-08] MEDS: cefTRIAXone sodium 1 GM in 0.9 % Sodium Chloride 50 ML IV ×2 (10:07→23:12)
[2023-11-08] MEDS: lisinopriL 20 MG TABLET PO (10:07)
--- NOTE | 2023-11-08 11:12 | P.CONIM_ITS ---
History of Present Illness Data of Consult Service Date: 11/08/23 Requesting physician: Diaz Esquivel Primary Care Provider: Unknown Physician HPI Reason for consult: HTN, medical management This is a [age]-year-old female with history of hypertension, lupus who presented to the emergency department with abdominal pain found to have possible early acute appendicitis. She was admitted to the surgical team for further management. The hospitalist service was asked to see her in consultation for medical management and assistance with managing hypertension. Patient states that for the past week or so her blood pressure has been uncontrolled, over the past 4 days she has doubled her dose of lisinopril but her blood pressure still remains elevated. Right side of the abdominal pain has improved somewhat. Review of Systems 2 Review of Systems: Yes all other systems are reviewed and are negative Constitutional: Constitutional: Denies chills and Denies fever(s) Cardiovascular: Cardiovascular: Denies chest pain and Denies palpitations Gastrointestinal: Gastrointestinal: Reports abdominal pain Endocrine: Endocrine: Denies palpitations [facility] Medical History Breast cancer Hypertension SLE (systemic lupus erythematosus related syndrome) Surgical History History of left oophorectomy H/O breast reconstruction H/O bilateral mastectomy Social History Household Members: Spouse Housing: House Do you presently have visiting nurse or other home services: No Patient Tobacco Use Status: Never used Tobacco Smoked in Last 30 Days: No Use of substances other than those prescribed or required for medical reasons: No Currently Displaying Signs/Symptoms of Drug Intoxication Withdrawal: No Have you been hit, kicked, punched, or otherwise hurt by someone within the past year? If so, by whom?: No Do you feel safe in your current relationship?: Yes Is there a partner from a previous relationship who is making you feel unsafe now?: No Are you made to feel afraid or neglected: No Advance Directives: No Advance Directives Information Provided: No Do you have a plan to hurt others: No Plan Recently lost weight without trying: No Eating poorly because of decreased appetite: No Nutrition Risks: No Nutritional Risk Patient : No : No Poor oral hygiene: No Meds Allergies Allergy/AdvReac Type Severity Reaction Status Date / Time Iodinated Contrast Media Allergy Unknown ANAPHYLAXIS Verified 11/07/23 17:45 [CONTRAST, IV] latex [LATEX] Allergy Unknown HIVES Verified 11/07/23 17:45 meperidine [From DEMEROL] Allergy Unknown UNKNOWN Verified 11/07/23 17:45 Active Medications: Current Medications Calcium Carbonate (Calcium Carbonate 750 Mg Tab.Chew) 750 mg PO Q4H PRN PRN Reason: Heartburn Hydromorphone HCl (Hydromorphone Hcl 0.5 Mg/0.5 Ml Syringe) 0.5 mg IVPUSH Q3H PRN; Protocol PRN Reason: Pain, Severe (Pain Scale 7-10) Last Admin: 11/07/23 23:35 Dose: 0.5 mg Acetaminophen (Ofirmev) 1,000 mg in 100 mls @ 400 mls/hr IV Q6H [facility] Stop: 11/09/23 00:14 Last Infusion: 11/08/23 06:32 Dose: Infused Dextrose/Lactated Ringer's (D5lr) 1,000 mls @ 125 mls/hr IVCONT .Q8H [facility] Last Admin: 11/08/23 10:07 Dose: 125 mls/hr Ceftriaxone Sodium 1 gm/ (Sodium Chloride) 50 mls @ 100 mls/hr IV Q12H [facility] Last Infusion: 11/08/23 10:47 Dose: Infused Metronidazole (Flagyl) 500 mg in 100 mls @ 100 mls/hr IV Q8H [facility] Last Infusion: 11/08/23 07:46 Dose: Infused Lisinopril (Lisinopril 20 Mg Tablet) 20 mg PO DAILY [facility]; Protocol Last Admin: 11/08/23 10:07 Dose: 20 mg Magnesium Hydroxide (Milk Of Magnesia 30 Ml Oral.Susp) 30 ml PO DAILY PRN PRN Reason: Constipation Ondansetron HCl (Ondansetron Hcl 4 Mg/2 Ml Vial) 4 mg IVPUSH Q8H PRN PRN Reason: Nausea Oxycodone HCl (Oxycodone Hcl Immed Release 5 Mg Tablet) 5 mg PO Q6H PRN PRN Reason: Pain, Moderate(Pain Scale 4-6) Last Admin: 11/08/23 06:29 Dose: 5 mg Sodium Chloride (0.9 % Sodium Chloride Flush 3 Ml Syringe) 3 ml IVFLUSH QSHIFT [facility] Last Admin: 11/08/23 07:25 Dose: Not Given Trazodone HCl (Trazodone Hcl 25 Mg Halftab) 25 mg PO BEDTIME [facility] Zolpidem Tartrate (Zolpidem Tartrate 5 Mg Tablet) 5 mg PO BEDTIME PRN PRN Reason: Insomnia Home Medications ?Medication ?Instructions ?Recorded ?Confirmed ?Last Taken ?Type gabapentin 100 mg capsule 100 mg PO DAILY PRN Pain 11/07/23 11/07/23 Unknown History gabapentin 100 mg capsule 200 mg PO BEDTIME PRN Pain 11/07/23 11/07/23 Unknown History lisinopril 20 mg tablet 20 mg PO DAILY 11/07/23 11/07/23 11/07/23 History trazodone 50 mg tablet 25 mg PO BEDTIME 11/07/23 11/07/23 11/06/23 History Physical Exam 2 Vital Signs and Narrative: Vital Signs: Last Vital Signs Temp 96.8 F 11/08/23 08:06 Pulse 69 11/08/23 08:06 Resp 12 11/08/23 08:06 BP 182/76 H 11/08/23 10:07 Pulse Ox 95 11/08/23 08:06 O2 Del Method Room Air 11/08/23 08:06 BMI result Body Mass Index 24.6 Const: General: cooperative, comfortable, no acute distress, alert and awake Nutritional Appearance: average body habitus Orientation/consciousness: p atient oriented x3 Resp: Effort & Inspection: normal respiratory effort, able to speak in complete sentences, no respiratory distress and no use of accessory muscles Cardio: Rate: regular rate GI: Other: RLQ TTP, abdomen soft, non-distend, no rebound Neuro: General: patient oriented x3, moves all extremities and CN's II-XI intact bilaterally Results Labs 11/08/23 05:30 11/07/23 18:50 Labs: Laboratory Results - last 24 hr 11/07/23 11/07/23 11/07/23 18:02 18:21 18:40 MCV 88.9 MCH 31.3 MCHC 35.2 H RDW 13.2 Plt Count 204 MPV 10.1 Immature Gran % (Auto) 0.5 H Neut % (Auto) 69.9 Lymph % (Auto) 23.7 [place] % (Auto) 4.1 Eos % (Auto) 1.3 Baso % (Auto) 0.5 Lymph # (Auto) 2.4 [place] # (Auto) 0.4 Eos # (Auto) 0.1 Baso # (Auto) 0.1 Abs Immat Gran (auto) 0.05 H Absolute Neuts (auto) 7.2 Absolute Nucleated RBC 0.000 Nucleated RBC % (auto) 0.0 Smear Tech's Comments VERIFIED Hold Purple Top SEE NOTE PT 12.5 INR 1.0 APTT 26.7 Hold Blue Top Anion Gap Estim Creat Clear Calc Estimated GFR Random Glucose Calcium Magnesium Total Bilirubin AST ALT Alkaline Phosphatase Troponin I High Sens C-Reactive Protein Total Protein Albumin Beta HCG, Quant Urine Color Urine Appearance Urine pH Ur Specific [place] Urine Protein Urine Glucose (UA) Urine Ketones Urine Blood Urine Nitrite Ur Leukocyte Esterase Urine RBC Urine WBC Ur Squamous Epith Cells Urine Bacteria Hyaline Casts Influenza Type A (PCR) NEGATIVE Influenza Type B (PCR) NEGATIVE RSV RNA Qual (PCR) NEGATIVE SARS-CoV-2 RNA (RT-PCR) NEGATIVE 11/07/23 11/07/23 11/08/23 18:45 18:50 05:30 MCV 90.4 MCH 30.5 MCHC 33.7 RDW 13.4 Plt Count 164 MPV 9.4 Immature Gran % (Auto) 0.5 H Neut % (Auto) 73.3 H Lymph % (Auto) 19.0 L [place] % (Auto) 5.5 Eos % (Auto) 1.5 Baso % (Auto) 0.2 Lymph # (Auto) 1.6 [place] # (Auto) 0.5 Eos # (Auto) 0.1 Baso # (Auto) 0.0 Abs Immat Gran (auto) 0.04 H Absolute Neuts (auto) 6.3 Absolute Nucleated RBC 0.000 Nucleated RBC % (auto) 0.0 Smear Tech's Comments Hold Purple Top SEE NOTE PT INR APTT Hold Blue Top SEE NOTE Anion Gap 16 Estim Creat Clear Calc 57.9 Estimated GFR > 60 Random Glucose 95 Calcium 9.4 Magnesium 1.9 Total Bilirubin 0.4 AST 26 ALT 28 Alkaline Phosphatase 68 Troponin I High Sens < 2.7 C-Reactive Protein 0.27 Total Protein 7.5 Albumin 4.2 Beta HCG, Quant < 2 Urine Color Yellow Urine Appearance Clear Urine pH 7.5 Ur Specific [place] 1.010 Urine Protein Negative Urine Glucose (UA) Negative Urine Ketones Negative Urine Blood Negative Urine Nitrite Negative Ur Leukocyte Esterase Moderate (2+) H Urine RBC 0-2 Urine WBC 21-50 H Ur Squamous Epith Cells 0-2 Urine Bacteria None Seen Hyaline Casts 0-2 Influenza Type A (PCR) Influenza Type B (PCR) RSV RNA Qual (PCR) SARS-CoV-2 RNA (RT-PCR) Imaging Radiologist's Impressions: Impressions Abdomen/Pelvis CT 11/07/23 18:41 IMPRESSION: 1. The appendix is retrocecal and measures up to 5 mm. There is minimal haziness around the periappendiceal fat which could represent early inflammation. No appendicolith or fluid collection. 2. Bilateral nonobstructing renal calculi. 3. Hepatic steatosis. Nonspecific right lower lobe pulmonary nodule. According to the UPDATED 2017 Fleischner Society recommendations, the advised follow-up imaging for Right solid pulmonary nodule measuring 4 mm. Per Fleischner Society Guidelines, no routine follow-up imaging is recommended. These guidelines do not apply to immunocompromised patients and patients with cancer. Follow up in patients with significant comorbidities as clinically warranted. For lung cancer screening, adhere to Lung-RADS guidelines. Reference: Radiology. 2017; 284(1):228-43. Fleischner guidelines were followed. Electronically signed by: Laz Abbott MD 11/07/2023 09:12 PM EDT RP Pelvic/Transvag US 11/07/23 20:17 IMPRESSION: No focal lesion. Electronically signed by: Laz Abbott MD 11/07/2023 09:15 PM EDT RP Assessment and Plan (1) Acute appendicitis: Qualifiers: Acute appendicitis type: with localized peritonitis Appendicitis gangrene presence: without gangrene Appendicitis perforation presence: without perforation Appendicitis abscess presence: without abscess Qualified Code(s): K35.30 - Acute appendicitis with localized peritonitis, without perforation or gangrene Status: Acute (2) Hypertension: Qualifiers: Hypertension type: primary hypertension Qualified Code(s): I10 - Essential (primary) hypertension Status: Acute Plan This is a 48-year-old female with history of breast cancer status post bilateral mastectomy, lupus, hypertension who presents to the emergency department with abdominal pain found to have possible early acute appendicitis Acute abdominal pain Thought to be due to early Acute appendicitis Management as per surgical team On ceftriaxone/Flagyl Uncontrolled hypertension IVF and pain likely contributing factors Continue home dose of lisinopril, has been taking 40 mg daily. will start with 20 mg if bp remains elevated will increase to 40 pulmonary nodule h/o breast cancer recommend outpatient follow up/monitoring Thank you for allowing us to participate in the care of this patient we will follow along with you
--- NOTE | 2023-11-08 15:29 | MHC.CM.PN ---
PT REPORTS SHE LIVES WITH HER S/O AND IS INDEPENDENT WITH CARE PT HAS NO DME AND NO SERVICES AND WORKS PT WILL CONSIDER COMPLETING A NEW HCP WHILE HERE SHE DOES NOT KNOW THE NAME OF HER PCP, BUT GOES TO [facility] DCP: HOME VIA SELF TRANSPORT
[2023-11-08] MEDS: amLODIPine Besylate 5 MG TABLET PO (20:51)
[2023-11-08] MEDS: traZODone HCL 25 MG HALFTAB PO (20:51)
[2023-11-08] MEDS: Zolpidem Tartrate 5 MG TABLET PO (23:11)
[2023-11-09] VITALS (12 sets, daily range): BP systolic 136–180; BP diastolic 58–106; PULSE 75–100; RESP 14–20; TEMP 36.1–36.8; O2SAT 93–99
--- NOTE | 2023-11-09 04:07 | PC.NURSE ---
patients BP is running high, Lisinopril dose increased to 40 mg scheduled for AM. In the meanwhile patient was given Amlodipine one dose 5 mg at 20:50 with slight improvement,see computer for VS. 4 AM recheck still high 180/78. Dr Peters aware and ordered one dose of clonidine ( to be given as soon pharmacy gets it verified)
[2023-11-09] MEDS: cloNIDine HCL 0.1 MG TABLET PO (04:54)
[2023-11-09] MEDS: metroNIDAZOLE/NS 500 MG/100 ML PIGGYBACK 100 MG IV (06:31)
--- NOTE | 2023-11-09 07:54 | P.PNGS_ITS ---
Subjective Subjective Date of Service: 11/09/23 Interval history: Patient improved but continues to have abdominal pain in the right lower quadrant needing pain medications. She would like to proceed to surgery because of the continued pain. Physical Exam 2 Vital Signs: Vital Signs: Last Vital Signs Temp 97.7 F 11/09/23 03:45 Pulse 79 11/09/23 03:45 Resp 14 11/09/23 03:45 BP 180/78 H 11/09/23 03:45 Pulse Ox 98 11/09/23 03:45 O2 Del Method Room Air 11/09/23 03:45 BMI result Body Mass Index 24.6 Const: General: no acute distress Nutritional Appearance: well nourished Orientation/consciousness: patient oriented x3 Limitations: no limitations Resp: Effort & Inspection: normal respiratory effort GI: Inspection: Yes normal to inspection Palpation (GI): Soft to palpation and Tenderness to palpation present (GI) in the RLQ and Rovsing's sign positive Skin: General skin exam: no rashes or lesions noted Neuro: General: patient oriented x3 Extrem: General: Yes no clubbing, cyanosis or edema Objective Data Active Medications Calcium Carbonate (Calcium Carbonate 750 Mg Tab.Chew) 750 mg PO Q4H PRN PRN Reason: Heartburn Hydromorphone HCl (Hydromorphone Hcl 0.5 Mg/0.5 Ml Syringe) 0.5 mg IVPUSH Q3H PRN; Protocol PRN Reason: Pain, Severe (Pain Scale 7-10) Last Admin: 11/07/23 23:35 Dose: 0.5 mg Documented By: KECIA Dextrose/Lactated Ringer's (D5lr) 1,000 mls @ 125 mls/hr IVCONT .Q8H [facility] Last Infusion: 11/09/23 06:31 Dose: 0 mls/hr Documented By: FELIBERTO Ceftriaxone Sodium 1 gm/ (Sodium Chloride) 50 mls @ 100 mls/hr IV Q12H [facility] Last Infusion: 11/08/23 23:43 Dose: Infused Documented By: FELIBERTO Metronidazole (Flagyl) 500 mg in 100 mls @ 100 mls/hr IV Q8H [facility] Last Infusion: 11/09/23 07:47 Dose: Infused Documented By: EV Lisinopril (Lisinopril 40 Mg Tablet) 40 mg PO DAILY [facility]; Protocol Magnesium Hydroxide (Milk Of Magnesia 30 Ml Oral.Susp) 30 ml PO DAILY PRN PRN Reason: Constipation Ondansetron HCl (Ondansetron Hcl 4 Mg/2 Ml Vial) 4 mg IVPUSH Q8H PRN PRN Reason: Nausea Oxycodone HCl (Oxycodone Hcl Immed Release 5 Mg Tablet) 5 mg PO Q6H PRN PRN Reason: Pain, Moderate(Pain Scale 4-6) Last Admin: 11/08/23 23:11 Dose: 5 mg Documented By: FELIBERTO Sodium Chloride (0.9 % Sodium Chloride Flush 3 Ml Syringe) 3 ml IVFLUSH QSHIFT [facility] Last Admin: 11/09/23 07:11 Dose: Not Given Documented By: EV Non-Admin Reason: IV Running Trazodone HCl (Trazodone Hcl 25 Mg Halftab) 25 mg PO BEDTIME [facility] Last Admin: 11/08/23 20:51 Dose: 25 mg Documented By: FELIBERTO Zolpidem Tartrate (Zolpidem Tartrate 5 Mg Tablet) 5 mg PO BEDTIME PRN PRN Reason: Insomnia Last Admin: 11/08/23 23:11 Dose: 5 mg Documented By: FELIBERTO Labs 11/08/23 05:30 11/07/23 18:50 Microbiology Microbiology Results: Microbiology 11/07/23 19:07 Urine Culture - Preliminary Urine clean catch - Clean Catch Midstream Culture in progress. Procedures Date of Service Date of Service: 11/09/23 Progress Note: A&P Assessment and plan (1) Acute appendicitis: Status: Acute Plan 48 year old female patient with complaints of abdominal pain in the right lower quadrant, found on CT to have possible early appendicitis. Her pain continues despite over 24 hours of antibiotics and I agree she would benefit from a laparoscopic or possible open appendectomy. I reviewed the procedure, alternatives and risks of laparoscopic or possible open appendectomy and she consents to the surgery. She has been added on to the OR schedule today. Time Spent With Patient Time: Total time managing care of this patient today ____ minutes. Quality Stroke Does the patient have a stroke diagnosis?: No VTE Prior VTE?: No VTE Risk Level:: Surgical - low VTE Device Contraindication: N/A - Device Ordered VTE Drug Contraindication: Treatment Not Indicated
[2023-11-09] MEDS: lisinopriL 40 MG TABLET PO (08:49)
--- NOTE | 2023-11-09 10:05 | HO.ANESPROP2 ---
COUNTS INCLUDE 234 BEDS AT THE [facility] Active Problems Active Problems: All Active Problems Hypertension (Acute) Acute appendicitis (Acute) Abdominal pain (Acute) Past Medical History Medical History Breast cancer Hypertension SLE (systemic lupus erythematosus related syndrome) Functional capacity: independent ambulation Patient : No Family History Family history of problems with anesthesia: No Surgical History Surgical History History of left oophorectomy H/O breast reconstruction H/O bilateral mastectomy History of Problems with Anesthesia: No Social History Social History Household Members: Spouse Housing: House Do you presently have visiting nurse or other home services: No Patient Tobacco Use Status: Never used Tobacco service: No Meds Allergies Allergy/AdvReac Type Severity Reaction Status Date / Time Iodinated Contrast Media Allergy Unknown ANAPHYLAXIS Verified 11/07/23 17:45 [CONTRAST, IV] latex [LATEX] Allergy Unknown HIVES Verified 11/07/23 17:45 meperidine [From DEMEROL] Allergy Unknown UNKNOWN Verified 11/07/23 17:45 Active Medications: Current Medications Amlodipine Besylate (Amlodipine Besylate 5 Mg Tablet) 5 mg PO DAILY [facility]; Protocol Calcium Carbonate (Calcium Carbonate 750 Mg Tab.Chew) 750 mg PO Q4H PRN PRN Reason: Heartburn Hydromorphone HCl (Hydromorphone Hcl 0.5 Mg/0.5 Ml Syringe) 0.5 mg IVPUSH Q3H PRN; Protocol PRN Reason: Pain, Severe (Pain Scale 7-10) Last Admin: 11/07/23 23:35 Dose: 0.5 mg Dextrose/Lactated Ringer's (D5lr) 1,000 mls @ 125 mls/hr IVCONT .Q8H [facility] Last Infusion: 11/09/23 06:31 Dose: 0 mls/hr Ceftriaxone Sodium 1 gm/ (Sodium Chloride) 50 mls @ 100 mls/hr IV Q12H [facility] Last Infusion: 11/08/23 23:43 Dose: Infused Metronidazole (Flagyl) 500 mg in 100 mls @ 100 mls/hr IV Q8H [facility] Last Infusion: 11/09/23 07:47 Dose: Infused Lisinopril (Lisinopril 40 Mg Tablet) 40 mg PO DAILY [facility]; Protocol Last Admin: 11/09/23 08:49 Dose: 40 mg Magnesium Hydroxide (Milk Of Magnesia 30 Ml Oral.Susp) 30 ml PO DAILY PRN PRN Reason: Constipation Ondansetron HCl (Ondansetron Hcl 4 Mg/2 Ml Vial) 4 mg IVPUSH Q8H PRN PRN Reason: Nausea Oxycodone HCl (Oxycodone Hcl Immed Release 5 Mg Tablet) 5 mg PO Q6H PRN PRN Reason: Pain, Moderate(Pain Scale 4-6) Last Admin: 11/08/23 23:11 Dose: 5 mg Sodium Chloride (0.9 % Sodium Chloride Flush 3 Ml Syringe) [facility] Last Admin: 11/09/23 07:11 Dose: Not Given Trazodone HCl (Trazodone Hcl 25 Mg Halftab) 25 mg PO BEDTIME [facility] Last Admin: 11/08/23 20:51 Dose: 25 mg Zolpidem Tartrate (Zolpidem Tartrate 5 Mg Tablet) 5 mg PO BEDTIME PRN PRN Reason: Insomnia Last Admin: 11/08/23 23:11 Dose: 5 mg Home Medications ?Medication ?Instructions ?Recorded ?Confirmed ?Last Taken ?Type gabapentin 100 mg capsule 100 mg PO DAILY PRN Pain 11/07/23 11/07/23 Unknown History gabapentin 100 mg capsule 200 mg PO BEDTIME PRN Pain 11/07/23 11/07/23 Unknown History lisinopril 20 mg tablet 20 mg PO DAILY 11/07/23 11/07/23 11/07/23 History trazodone 50 mg tablet 25 mg PO BEDTIME 11/07/23 11/07/23 11/06/23 History Exam Exam Date and Time: # Height,Weight and Vital Signs: Height 5 ft 1 in Weight 58.967 kg Last Vital Signs Temp 97.3 F 11/09/23 08:31 Pulse 80 11/09/23 08:31 Resp 18 11/09/23 08:31 BP 166/58 H 11/09/23 08:49 Pulse Ox 94 11/09/23 08:31 O2 Del Method Room Air 11/09/23 08:31 Pertinent Lab Results Pertinent Lab Results: Laboratory Tests 11/07/23 11/07/23 11/07/23 18:02 18:21 18:40 WBC 10.3 RBC 4.25 Hgb 13.3 Hct 37.8 MCV 88.9 MCH 31.3 MCHC 35.2 H RDW 13.2 Plt Count 204 MPV 10.1 Immature Gran % (Auto) 0.5 H Neut % (Auto) 69.9 Lymph % (Auto) 23.7 [place] % (Auto) 4.1 Eos % (Auto) 1.3 Baso % (Auto) 0.5 Lymph # (Auto) 2.4 [place] # (Auto) 0.4 Eos # (Auto) 0.1 Baso # (Auto) 0.1 Abs Immat Gran (auto) 0.05 H Absolute Neuts (auto) 7.2 Absolute Nucleated RBC 0.000 Nucleated RBC % (auto) 0.0 Smear Tech's Comments VERIFIED Hold Purple Top SEE NOTE PT 12.5 INR 1.0 APTT 26.7 Hold Blue Top Sodium Potassium Chloride Carbon Dioxide Anion Gap BUN Creatinine Estim Creat Clear Calc Estimated GFR Random Glucose Calcium Magnesium Total Bilirubin AST ALT Alkaline Phosphatase Troponin I High Sens C-Reactive Protein Total Protein Albumin Beta HCG, Quant Urine Color Urine Appearance Urine pH Ur Specific [place] Urine Protein Urine Glucose (UA) Urine Ketones Urine Blood Urine Nitrite Ur Leukocyte Esterase Urine RBC Urine WBC Ur Squamous Epith Cells Urine Bacteria Hyaline Casts Influenza Type A (PCR) NEGATIVE Influenza Type B (PCR) NEGATIVE RSV RNA Qual (PCR) NEGATIVE SARS-CoV-2 RNA (RT-PCR) NEGATIVE 11/07/23 11/07/23 11/08/23 18:45 18:50 05:30 WBC 8.6 RBC 3.74 L Hgb 11.4 L Hct 33.8 L MCV 90.4 MCH 30.5 MCHC 33.7 RDW 13.4 Plt Count 164 MPV 9.4 Immature Gran % (Auto) 0.5 H Neut % (Auto) 73.3 H Lymph % (Auto) 19.0 L [place] % (Auto) 5.5 Eos % (Auto) 1.5 Baso % (Auto) 0.2 Lymph # (Auto) 1.6 [place] # (Auto) 0.5 Eos # (Auto) 0.1 Baso # (Auto) 0.0 Abs Immat Gran (auto) 0.04 H Absolute Neuts (auto) 6.3 Absolute Nucleated RBC 0.000 Nucleated RBC % (auto) 0.0 Smear Tech's Comments Hold Purple Top SEE NOTE PT INR APTT Hold Blue Top SEE NOTE Sodium 141 Potassium 3.7 Chloride 105 Carbon Dioxide 24 Anion Gap 16 BUN 16 Creatinine 0.97 Estim Creat Clear Calc 57.9 Estimated GFR > 60 Random Glucose 95 Calcium 9.4 Magnesium 1.9 Total Bilirubin 0.4 AST 26 ALT 28 Alkaline Phosphatase 68 Troponin I High Sens < 2.7 C-Reactive Protein 0.27 Total Protein 7.5 Albumin 4.2 Beta HCG, Quant < 2 Urine Color Yellow Urine Appearance Clear Urine pH 7.5 Ur Specific [place] 1.010 Urine Protein Negative Urine Glucose (UA) Negative Urine Ketones Negative Urine Blood Negative Urine Nitrite Negative Ur Leukocyte Esterase Moderate (2+) H Urine RBC 0-2 Urine WBC 21-50 H Ur Squamous Epith Cells 0-2 Urine Bacteria None Seen Hyaline Casts 0-2 Influenza Type A (PCR) Influenza Type B (PCR) RSV RNA Qual (PCR) SARS-CoV-2 RNA (RT-PCR) Airway Mallampati Class: II TM Dist: >3cm Neck ROM: Full Heart: RRR Lungs: CTA Assessment and Plan Assessment Anesthesia Assessment: Anesthesia Plan Discussed and Chart Reviewed Final Anesthetic Review Family History of Problems with Anesthesia: No History of Problems with Anesthesia: No NPO: Yes ASA Class: II and Emergency Final Preanesthetic Review: Meds/Allgs Chart Reviewed, Consent Obtained/Reviewed and Anes Risks/Benef Reviewed Patient Risk: Low Procedure Risk: Low Anesthetic Plan Anesthetic Plan: GA Disposition: Standard PACU
[2023-11-09] MEDS: cefTRIAXone sodium 1 GM in 0.9 % Sodium Chloride 50 ML IV (10:11)
--- NOTE | 2023-11-09 11:46 | W.PM.OPN ---
Operative Note Operative Note Date of Service: 11/09/23 Narrative: Preoperative diagnosis: Acute appendicitis Postoperative diagnosis: Same Procedure: Laparoscopic appendectomy Surgeon: Diaz Esquivel MD Wardrobe Supervisor: none Anesthesia: General endotracheal Indications for procedure: 48-year-old female patient presenting with complaints of abdominal pain in the right lower quadrant found on CT to have mild inflammatory changes around the appendix suggestive of acute appendicitis. Operative findings: Minimally inflamed appendix Specimen: Appendix Estimated blood loss: 2 mL Complications: None Procedure details: Patient was brought to the OR and placed in a supine position. After administering general anesthesia the patient's abdomen was prepped with ChloraPrep and draped in a sterile fashion. A surgical time-out was called and consent confirmed. Patient received preoperative antibiotics and Venodyne boots were in place. Local anesthesia consisting of 0.5% Sensorcaine without epinephrine was infiltrated in periumbilical region. A 5 mm incision was made below the umbilicus and carried down through subcutaneous tissue. A Veress needle was then inserted while elevating abdominal cavity with towel clips. After a positive drop test the abdomen was insufflated to a pressure of 15 mm of mercury. The Veress needle was removed and a 5 mm trocar inserted. The camera was then inserted in the abdomen explored. A 2nd 5 mm trocars placed in the lower midline. A 12 mm trocar was then placed in the left lower quadrant. The patient was then placed in a Trendelenburg position and rotated to the left. The appendix was identified in the right lower quadrant and brought up using blunt dissecting clamps. The mesentery of the appendix was then divided using the LigaSure. The appendiceal artery was cauterized and divided using the LigaSure. Dissection was continued down to the base of the cecum. An Endo-JESUS stapler with a purple reload was then used to divide the appendix at the base with the cecum. The appendix was then placed in Endo-Catch bag and brought out through the left lower quadrant incision. The abdomen was then irrigated with saline solution and suctioned dry. Wounds were checked for hemostasis. CO2 was then evacuated from the abdominal cavity and all trocars removed. Fascia was closed in the left lower quadrant incision using a [id number] 0 Polysorb suture. Skin was closed at all incisions using a subcuticular 4-0 Polysorb suture. Steri-Strips 2 x 2 gauze and Tegaderm were then applied. The patient tolerated the procedure well. Sponge, instrument, needle counts reported as correct. The patient was transferred to PACU in stable condition.
--- NOTE | 2023-11-09 13:36 | HO.PM.IMPN ---
Subjective Subjective Date of Service: 11/09/23 Interval History: seen and examined this morning follow up for medical consultation and acute appendicitis Ongoing abdominal pain Plan for surgery today Review of Systems Review of Systems: Yes all other systems are reviewed and are negative Constitutional Constitutional: Denies chills and Denies fever(s) Cardiovascular Cardiovascular: Denies chest pain, Denies palpitations and Denies dyspnea Respiratory Respiratory: Denies dyspnea Gastrointestinal Gastrointestinal: Reports abdominal pain Endocrine Endocrine: Denies palpitations Physical Exam Vital Signs: Vital Signs: Last Vital Signs Temp 97.0 F 11/09/23 12:44 Pulse 82 11/09/23 12:44 Resp 20 11/09/23 12:44 BP 150/85 H 11/09/23 13:34 Pulse Ox 96 11/09/23 12:44 O2 Del Method Room Air 11/09/23 12:44 O2 Flow Rate 2 11/09/23 12:28 BMI result Body Mass Index 24.6 Const: General: cooperative, comfortable, no acute distress, alert and awake Nutritional Appearance: average body habitus Orientation/consciousness: patient oriented x3 Resp: Effort & Inspection: normal respiratory effort, able to speak in complete sentences, no respiratory distress and no use of accessory muscles Cardio: Rate: regular rate GI: Other: RLQ TTP, abdomen soft, non-distend, no rebound Neuro: General: patient oriented x3, moves all extremities and CN's II-XI intact bilaterally Objective Data Active Medications Amlodipine Besylate (Amlodipine Besylate 5 Mg Tablet) 5 mg PO DAILY [facility]; Protocol Calcium Carbonate (Calcium Carbonate 750 Mg Tab.Chew) 750 mg PO Q4H PRN PRN Reason: Heartburn Hydromorphone HCl (Hydromorphone Hcl 0.5 Mg/0.5 Ml Syringe) 0.5 mg IVPUSH Q3H PRN; Protocol PRN Reason: Pain, Severe (Pain Scale 7-10) Last Admin: 11/07/23 23:35 Dose: 0.5 mg Documented By: KECIA Dextrose/Lactated Ringer's (D5lr) 1,000 mls @ 80 mls/hr IVCONT .[id number] [facility] Last Infusion: 11/09/23 06:31 Dose: 0 mls/hr Documented By: FELIBERTO Lisinopril (Lisinopril 40 Mg Tablet) 40 mg PO DAILY [facility]; Protocol Last Admin: 11/09/23 08:49 Dose: 40 mg Documented By: EV Magnesium Hydroxide (Milk Of Magnesia 30 Ml Oral.Susp) 30 ml PO DAILY PRN PRN Reason: Constipation Ondansetron HCl (Ondansetron Hcl 4 Mg/2 Ml Vial) 4 mg IVPUSH Q8H PRN PRN Reason: Nausea Oxycodone HCl (Oxycodone Hcl Immed Release 5 Mg Tablet) 5 mg PO Q6H PRN PRN Reason: Pain, Moderate(Pain Scale 4-6) Last Admin: 11/08/23 23:11 Dose: 5 mg Documented By: FELIBERTO Sodium Chloride (0.9 % Sodium Chloride Flush 3 Ml Syringe) 3 ml IVFLUSH QSHIFT [facility] Last Admin: 11/09/23 07:11 Dose: Not Given Documented By: EV Non-Admin Reason: IV Running Trazodone HCl (Trazodone Hcl 25 Mg Halftab) 25 mg PO BEDTIME [facility] Last Admin: 11/08/23 20:51 Dose: 25 mg Documented By: FELIBERTO Zolpidem Tartrate (Zolpidem Tartrate 5 Mg Tablet) 5 mg PO BEDTIME PRN PRN Reason: Insomnia Last Admin: 11/08/23 23:11 Dose: 5 mg Documented By: FELIBERTO Labs 11/08/23 05:30 11/07/23 18:50 Microbiology Microbiology Results: Microbiology 11/07/23 19:07 Urine Culture - Final Urine clean catch - Clean Catch Midstream Assessment and Plan (1) Hypertension: Status: Acute (2) Acute appendicitis: Status: Acute Plan This is a 48-year-old female with history of breast cancer status post bilateral mastectomy, lupus, hypertension who presents to the emergency department with abdominal pain found to have possible early acute appendicitis Acute abdominal pain due to acute appendicitis Management as per surgical team On ceftriaxone/Flagyl plan for surgery today Uncontrolled hypertension IVF and pain likely contributing factors dose of lisinopril increased to 40 mg did receive a dose of norvasc overnight, will start norvasc 5 mg from tomorrow morning pulmonary nodule h/o breast cancer recommend outpatient follow up/monitoring Thank you for allowing us to participate in the care of this patient we will follow along with you Quality Stroke Does the patient have a stroke diagnosis?: No VTE Prior VTE?: No VTE Risk Level:: Surgical - low VTE Device Contraindication: N/A - Device Ordered VTE Drug Contraindication: Treatment Not Indicated
[2023-11-09] MEDS: HYDROmorphone HCl 0.5 MG/0.5 ML SYRINGE IVPUSH (15:07)
--- NOTE | 2023-11-09 15:27 | PC.NURSE ---
IVF stopped as per Peggy
[2023-11-09] MEDS: oxyCODONE HCl Immed Release 5 MG TABLET PO (18:14)
[2023-11-09] MEDS: Zolpidem Tartrate 5 MG TABLET PO (22:19)
[2023-11-09] MEDS: traZODone HCL 25 MG HALFTAB PO (22:19)
[2023-11-09] MEDS: 0.9 % Sodium Chloride Flush 3 ML SYRINGE IVFLUSH (22:22)
[2023-11-09] MEDS: amLODIPine Besylate 5 MG TABLET PO (23:56)
[2023-11-10] MEDS: oxyCODONE HCl Immed Release 5 MG TABLET PO ×2 (00:01→10:34)
--- NOTE | 2023-11-10 00:43 | PC.NURSE ---
1 2mn bp 172/94 md ordered to give am dose of norvasc now
[2023-11-10 03:18] VITALS: BP 170/73; PULSE 78; RESP 16; TEMP 36.3; O2SAT 95
[2023-11-10 07:27] VITALS: BP 164/95; PULSE 87; RESP 18; TEMP 36.1; O2SAT 95
[2023-11-10] MEDS: 0.9 % Sodium Chloride Flush 3 ML SYRINGE IVFLUSH (08:10)
[2023-11-10] MEDS: lisinopriL 40 MG TABLET PO (08:10)
--- NOTE | 2023-11-10 08:25 | PM.PNGS ---
Subjective Subjective Date of Service: 11/10/23 Interval history: Tolerating diet without nausea or vomiting. OOB and ambulating without difficulty. Passing flatus. Pain well controlled, mostly at LLQ port site. Physical Exam Vital Signs: Vital Signs: Last Vital Signs Temp 97.0 F 11/10/23 07:27 Pulse 87 11/10/23 07:27 Resp 18 11/10/23 07:27 BP 164/95 H 11/10/23 07:27 Pulse Ox 95 11/10/23 07:27 O2 Del Method Room Air 11/10/23 07:27 O2 Flow Rate 2 11/09/23 12:28 BMI result Body Mass Index 24.6 Const: General: comfortable, no acute distress and alert Orientation/consciousness: patient oriented x3 Resp: Effort & Inspection: normal respiratory effort GI: Inspection: No distended and Yes incision (dressings intact, umbilical blood stained ) Palpation (GI): Soft to palpation, Tenderness to palpation present (GI) (mild incisional) and no guarding Percussion: Yes normal to percussion Skin: General skin exam: no rashes or lesions noted Neuro: General: patient oriented x3 Objective Data Active Medications Amlodipine Besylate (Amlodipine Besylate 5 Mg Tablet) 5 mg PO DAILY [facility]; Protocol Last Admin: 11/09/23 23:56 Dose: 5 mg Documented By: SHERMAN Comments: per dr Richardson to give med now Calcium Carbonate (Calcium Carbonate 750 Mg Tab.Chew) 750 mg PO Q4H PRN PRN Reason: Heartburn Hydromorphone HCl (Hydromorphone Hcl 0.5 Mg/0.5 Ml Syringe) 0.5 mg IVPUSH Q3H [facility]; Protocol PRN Reason: Pain, Severe (Pain Scale 7-10) Last Admin: 11/09/23 15:07 Dose: 0.5 mg Documented By: EV Lisinopril (Lisinopril 40 Mg Tablet) 40 mg PO DAILY [facility]; Protocol Last Admin: 11/10/23 08:10 Dose: 40 mg Documented By: JHON Magnesium Hydroxide (Milk Of Magnesia 30 Ml Oral.Susp) 30 ml PO DAILY PRN PRN Reason: Constipation Ondansetron HCl (Ondansetron Hcl 4 Mg/2 Ml Vial) 4 mg IVPUSH Q8H PRN PRN Reason: Nausea Oxycodone HCl (Oxycodone Hcl Immed Release 5 Mg Tablet) 5 mg PO Q6H PRN PRN Reason: Pain, Moderate(Pain Scale 4-6) Last Admin: 11/10/23 00:01 Dose: 5 mg Documented By: SHERMAN Sodium Chloride (0.9 % Sodium Chloride Flush 3 Ml Syringe) 3 ml IVFLUSH QSHIFT [facility] Last Admin: 11/10/23 08:10 Dose: 3 ml Documented By: JHON Trazodone HCl (Trazodone Hcl 25 Mg Halftab) 25 mg PO BEDTIME [facility] Last Admin: 11/09/23 22:19 Dose: 25 mg Documented By: SHERMAN Zolpidem Tartrate (Zolpidem Tartrate 5 Mg Tablet) 5 mg PO BEDTIME PRN PRN Reason: Insomnia Last Admin: 11/09/23 22:19 Dose: 5 mg Documented By: SHERMAN Labs 11/08/23 05:30 11/07/23 18:50 Microbiology Microbiology Results: Microbiology 11/07/23 19:07 Urine Culture - Final Urine clean catch - Clean Catch Midstream Procedures Date of Service Date of Service: 11/10/23 Progress Note: A&P Assessment and plan (1) Acute appendicitis: Status: Acute (2) Hypertension: Status: Acute (3) S/P laparoscopic appendectomy: Status: Acute Plan POD #1 s/p lap appy. Doing well post op with good pain control and tolerating solid diet. VS- remains hypertensive. abd benign with appropriate post op tenderness, dressings intact. Doing well and stable for dc from surgical standpoint. Started on norvasc 5mg yesterday. Will discuss with hospitalists regarding discharge to home today. Patient comfortable with plan. Time Spent With Patient Time: Total time managing care of this patient today ____ minutes. Quality Stroke Does the patient have a stroke diagnosis?: No VTE Prior VTE?: No VTE Risk Level:: Surgical - low VTE Device Contraindication: N/A - Device Ordered VTE Drug Contraindication: Treatment Not Indicated
--- NOTE | 2023-11-10 09:49 | P.CONNP_ITS ---
History of Present Illness Reason for Consult Consult date: 11/10/23 Chief Complaint Chief complaint: Acute appendicitis History of Present Illness Narrative: 48-year-old female with history of hypertension, lupus who presented to the emergency department with abdominal pain found to have possible early acute appendicitis. She was admitted to the surgical team for further management. Renal service was asked to see her in consultation for medical management and assistance with managing hypertension. Patient states that for the past week or so her blood pressure has been uncontrolled, over the past few days. She has no H/O uncontrolled thyroid disorders, hypokalemia, MILKA, hypercalcemia. Her renal functions has been at baseline Review of Systems Review of Systems Yes all other systems are reviewed and are negative PMFSH Past Medical History Medical History Breast cancer Hypertension SLE (systemic lupus erythematosus related syndrome) Surgical History Surgical History History of left oophorectomy H/O breast reconstruction H/O bilateral mastectomy Social History Social History Household Members: Spouse Housing: House Do you presently have visiting nurse or other home services: No Patient Tobacco Use Status: Never used Tobacco Smoked in Last 30 Days: No Use of substances other than those prescribed or required for medical reasons: No Currently Displaying Signs/Symptoms of Drug Intoxication Withdrawal: No Have you been hit, kicked, punched, or otherwise hurt by someone within the past year? If so, by whom?: No Do you feel safe in your current relationship?: Yes Is there a partner from a previous relationship who is making you feel unsafe now?: No Are you made to feel afraid or neglected: No Advance Directives: No Advance Directives Information Provided: No Do you have a plan to hurt others: No Plan Recently lost weight without trying: No Eating poorly because of decreased appetite: No Nutrition Risks: No Nutritional Risk Patient : No : No Poor oral hygiene: No service: No Meds Allergies Allergy/AdvReac Type Severity Reaction Status Date / Time Iodinated Contrast Media Allergy Unknown ANAPHYLAXIS Verified 11/07/23 17:45 [CONTRAST, IV] latex [LATEX] Allergy Unknown HIVES Verified 11/07/23 17:45 meperidine [From DEMEROL] Allergy Unknown UNKNOWN Verified 11/07/23 17:45 Active Medications: Current Medications Amlodipine Besylate (Amlodipine Besylate 5 Mg Tablet) 5 mg PO DAILY [facility]; Protocol Last Admin: 11/09/23 23:56 Dose: 5 mg Calcium Carbonate (Calcium Carbonate 750 Mg Tab.Chew) 750 mg PO Q4H PRN PRN Reason: Heartburn Hydromorphone HCl (Hydromorphone Hcl 0.5 Mg/0.5 Ml Syringe) 0.5 mg IVPUSH Q3H PRN; Protocol PRN Reason: Pain, Severe (Pain Scale 7-10) Last Admin: 11/09/23 15:07 Dose: 0.5 mg Lisinopril (Lisinopril 40 Mg Tablet) 40 mg PO DAILY [facility]; Protocol Last Admin: 11/10/23 08:10 Dose: 40 mg Magnesium Hydroxide (Milk Of Magnesia 30 Ml Oral.Susp) 30 ml PO DAILY PRN PRN Reason: Constipation Ondansetron HCl (Ondansetron Hcl 4 Mg/2 Ml Vial) 4 mg IVPUSH Q8H PRN PRN Reason: Nausea Oxycodone HCl (Oxycodone Hcl Immed Release 5 Mg Tablet) 5 mg PO Q6H PRN PRN Reason: Pain, Moderate(Pain Scale 4-6) Last Admin: 11/10/23 00:01 Dose: 5 mg Sodium Chloride (0.9 % Sodium Chloride Flush 3 Ml Syringe) [facility] Last Admin: 11/10/23 08:10 Dose: 3 ml Trazodone HCl (Trazodone Hcl 25 Mg Halftab) 25 mg PO BEDTIME [facility] Last Admin: 11/09/23 22:19 Dose: 25 mg Zolpidem Tartrate (Zolpidem Tartrate 5 Mg Tablet) 5 mg PO BEDTIME PRN PRN Reason: Insomnia Last Admin: 11/09/23 22:19 Dose: 5 mg Home Medications ?Medication ?Instructions ?Recorded ?Confirmed ?Last Taken ?Type gabapentin 100 mg capsule 100 mg PO DAILY PRN Pain 11/07/23 11/07/23 Unknown History gabapentin 100 mg capsule 200 mg PO BEDTIME PRN Pain 11/07/23 11/07/23 Unknown History lisinopril 20 mg tablet 20 mg PO DAILY 0911/07/23 11/07/23 History trazodone 50 mg tablet 25 mg PO BEDTIME 11/07/23 11/07/23 11/06/23 History Physical Exam Vital Signs: Last Vital Signs Temp 97.0 F 11/10/23 07:27 Pulse 87 11/10/23 07:27 Resp 18 11/10/23 07:27 BP 164/95 H 11/10/23 07:27 Pulse Ox 95 11/10/23 07:27 O2 Del Method Room Air 11/10/23 07:27 O2 Flow Rate 2 11/09/23 12:28 BMI result Body Mass Index 24.6 Const General: no acute distress Orientation/consciousness: patient oriented x3 Eyes EOM: EOMs intact bilaterally Neck Neck: Yes supple Resp Auscultation: diminished lung sounds Cardio Rate: regular rate GI Palpation (GI): Soft to palpation Neuro General: patient oriented x3 Results Lab Results 11/08/23 05:30 11/07/23 18:50 Lab results: Chemistry 11/07/23 18:50 Sodium 141 Potassium 3.7 Carbon Dioxide 24 BUN 16 Creatinine 0.97 Calcium 9.4 Hematology 11/07/23 11/08/23 18:02 05:30 WBC 10.3 8.6 Hgb 13.3 11.4 L Plt Count 204 164 Urinalysis 11/07/23 18:45 Urine Color Yellow Urine Appearance Clear Urine pH 7.5 Ur Specific [place] 1.010 Urine Protein Negative Urine Glucose (UA) Negative Urine Ketones Negative Urine Blood Negative Urine Nitrite Negative Ur Leukocyte Esterase Moderate (2+) H Urine RBC 0-2 Urine WBC 21-50 H Ur Squamous Epith Cells 0-2 Hyaline Casts 0-2 Assessment and Plan (1) Hypertension: Qualifiers: Hypertension type: primary hypertension Qualified Code(s): I10 - Essential (primary) hypertension Status: Acute Plan Has known hypertension No hypokalemia/ renal dysfunction No H/O proteinuria Increased lisinopril to 40 mg daily Started on Amlodipine 5 mg daily Shall see her in office in F/U first week Dec Procedures Date of Service Date of Service: 11/10/23
[2023-11-10 09:59] VITALS: BP 150/80
[2023-11-10] MEDS: amLODIPine Besylate 5 MG TABLET PO (09:59)
--- NOTE | 2023-11-10 10:57 | PM.DS ---
DS: Providers Provider Date of Service: 11/10/23 Date of admission: 11/07/23 21:48 Date of discharge: 11/10/23 Primary care physician: Unknown Physician Attending physician on admission: Diaz Esquivel Consults: 11/08/23 08:17 Consult to Hospitalist Routine Comment: Consulting Provider: Hospitalist Reason For Exam: Hypertension, medical management, early appendicit 11/10/23 08:46 Consult to Nephrology Routine Consulting Provider: [facility] Reason for consultation: HTN Attending physician on discharge: Diaz Esquivel DS: Diagnosis Discharge Diagnosis (1) Hypertension: Status: Acute DS: Summary Hospital Course Hospital Course: HPI AT ADMISSION: Megan Sanders is a 48 year old female presenting with complaints of abdominal pain in the right lower quadrant which began suddenly in the afternoon yesterday (11/07/2023). The pain was associated with nausea and anorexia and increased in severity throughout the day. She denied fever or chills. She did have a prior history of a ruptured ovarian cyst on the left side resulting in oophorectomy. She also has a past history of breast cancer and has previously undergone bilateral mastectomy and chemotherapy in 2016; peripartum cardiomyopathy in 2007, and hypertension. The pain is noted to increase with movement but remains mainly in the right lower quadrant. Workup in the emergency department did reveal a normal WBC of 10.3. CT abdomen and pelvis revealed the appendix in a retrocecal location measuring 5 mm with minimal haziness around the periappendiceal fat which could represent early appendicitis. No appendicolith or fluid collection was then identified. Findings were felt to possibly be early appendicitis. Pelvic ultrasound revealed a normal right ovary and absent left ovary, no pelvic fluid collections. This morning she feels somewhat improved although does note the pain to increase when her pain medication wears off. She denies any fever or chills. HOSPITAL COURSE: The patient was admitted to the surgical service for further treatment of the acute appendicitis. Nonoperatvive measures were attempted with IV abx however she had no improvement in her pain after 24 hours. It was therefore recommended to proceed with laparoscopic appendectomy. She agreed and was added onto the OR schedule for that day. Hospitalist service was consulted for the patient's hypertension. On 11/09/23, a laparoscopic appendectomy was performed by Dr. Esquivel without complication. The patient tolerated the procedure well. She had an uncomplicated recovery course. Her home antihypertensives were resumed however she remained hypertensive postoperatively and was started on Norvasc 5mg PO. On POD #1, she felt well and was tolerating a solid diet without nausea or vomiting, had good pain control and was ambulating without difficulty. Her abdomen was benign with appropriate post op tenderness and clean and intact dressings. Her BP remained elevated and nephrology was consulted. Her lisinopril was increased to 40mg PO daily and norvasc 5mg continued with outpatient nephrology follow up. She was reassessed later in the day and felt ready for discharge. She was discharged to home on 11/10/23 in stable condition. She is to follow up in the office in 1 week. She is to follow up with her PCP and nephrology upon discharge. Status at Discharge Functional status at discharge: independent ambulation Overall status at discharge: patient is progressing back to baseline Time Attestation Discharge Coordination Time (in mins): 35 Quality: Safe Use of Opioids Does Pt have an Active Cancer Diagnosis on the Problem List?: No Quality: Stroke Does the patient have a stroke diagnosis?: No Physical Exam Vital Signs: Vital Signs: Last Vital Signs Temp 98.6 F 11/10/23 11:44 Pulse 85 11/10/23 11:44 Resp 18 11/10/23 07:27 BP 154/85 H 11/10/23 11:44 Pulse Ox 94 11/10/23 11:44 O2 Del Method Room Air 11/10/23 11:44 O2 Flow Rate 2 11/09/23 12:28 BMI result Body Mass Index 24.6 Const: General: comfortable, no acute distress and alert Orientation/consciousness: patient oriented x3 Resp: Effort & Inspection: normal respiratory effort GI: Inspection: No distended and Yes incision (dressings c/d/i) Palpation (GI): Soft to palpation, Tenderness to palpation present (GI) (mild incisional) and no guarding Skin: General skin exam: no rashes or lesions noted Neuro: General: patient oriented x3 DS: Data Data Completed and Pending Pending studies at discharge: Pending at discharge 11/09/23 11:27 Surgical [PTH] Routine Discharge Plan Discharge Anticipated Discharge Date/Time: 11/10/23 07:10 Patient Disposition: Home, Self-Care Discharge Diagnosis: Acute appendicitis Referrals: Milton Rodríguez MD [Physician] - 1 Week (Hypertension, uncontrolled ) Diaz Esquivel MD [Physician] - 1 Week Discharge Medications: New oxycodone 5 mg tablet 5 mg PO Q4H PRN (Reason: pain (scale score 7-10)) Qty: 24 0RF Rx Instructions: Partial Fill upon patient request. docusate sodium [Colace] 100 mg capsule 100 mg PO BID Qty: 30 0RF amlodipine 5 mg Tablet 5 mg PO DAILY 30 Days Qty: 30 0RF Protocol: Hold for SBP< HOLD for SBP < : 90 Continued trazodone 50 mg tablet 25 mg PO BEDTIME gabapentin 100 mg capsule 100 mg PO DAILY PRN (Reason: Pain) gabapentin 100 mg capsule 200 mg PO BEDTIME PRN (Reason: Pain) Changed lisinopril 20 mg tablet 40 mg PO DAILY Qty: 60 0RF Discharge Orders: Discharge Order (Routine); Ordered 11/10/23 Ordered By: Diaz Esquivel Diet: Advance to usual diet Activity on Discharge: No heavy lifting Stand Alone Forms: Patient Portal Discharge page, Work/School Release Print Language: Serbian Activity Restrictions/Additional Instructions: No lifting > 10 pounds for 2 weeks No driving for one week Ice to the incision x 24 hours After 24 hours, use warm compress or heating pad on low as needed Take Tylenol Extra-strength 1-2 tabs every 6 hours as needed Oxycodone every 6-8 hours as needed for pain Colace 100 mg every day as needed for constipation Remove dressing in 3 days Follow up in office in one week (call office at [phone] for appointment). Care Plan Goals: Return to baseline health and resume normal activities following recovery period. Follow up with nephrology in the office in one week for uncontrolled hypertension Health Concerns: Abdominal pain right lower quadrant acute appendicitis uncontrolled hypertension Plan of Treatment: Laparoscopic appendectomy on 11/09/2023 Assessment: Acute appendicitis Discharge Date/Time: 11/10/23 14:13
[2023-11-10 11:44] VITALS: BP 154/85; PULSE 85; TEMP 37; O2SAT 94
--- NOTE | 2023-11-10 12:20 | MHC.CM.PN ---
PT DCD HOME SELF CARE
--- NOTE | 2023-11-10 13:48 | HO.POSTANES ---
Post Anesthesia Evaluation Post Anesthesia Evaluation Date of Service: 11/10/23 Vital Signs: Vital Signs Temp Pulse Resp BP Pulse Ox O2 Del Method 11/10/23 11:44 98.6 F 85 154/85 H 94 Room Air 11/10/23 09:59 150/80 H 11/10/23 07:27 97.0 F 87 18 164/95 H 95 Room Air 11/10/23 03:18 97.4 F 78 16 170/73 H 95 Room Air Anesthesia: General Endotracheal-GETA Mental Status: Awake Pain Control: Satisfactory Nausea/Vomiting: None Hydration: Adequate Anesthesia-Related Issues: No Anes. Related Issues
== END 2023-11-10 14:13 | disposition home or self-care (01) | DRG 399 ==
LOC: HO.ED 21:53 → HO.EDOVER 21:58 → HO.S3 23:22
PROVIDERS: Internal Medicine; Physician Assistant Medical; Admitting Provider Surgery; Emergency Provider Emergency Medicine; Visit Provider Surgery
PROC: 0DTJ4ZZ Resection of Appendix, Percutaneous Endoscopic Approach (ICD-10-PCS; CPT 44970; principal; 2023-11-09 10:00)
DX: K35.30 Acute appendicitis with localized peritonitis, without perforation or gangrene (principal); M32.9 Systemic lupus erythematosus, unspecified; I10 Essential (primary) hypertension; Z85.3 Personal history of malignant neoplasm of breast; Z90.13 Acquired absence of bilateral breasts and nipples; R91.1 Solitary pulmonary nodule; Z20.822 Contact with and (suspected) exposure to COVID-19; Z79.899 Other long term (current) drug therapy
CPT/HCPCS: 0241U; 36415; 74176; 76830; 76856; 80053; 81001; 83735; 84484; 84702; 85025; 85610; 85730; 86140; 87086; 88304; 90656; 93005; 99285; J0131; J0696; J1100; J1170; J1836; J1885; J2250; J2270; J2405; J2704; J3010

== ENCOUNTER → 2023-11-07 21:48 | Outpatient (BNV) | payer SELFPAY | PROVIDERS: Admitting Provider Surgery; Emergency Provider Emergency Medicine; Visit Provider Internal Medicine Nephrology | DX: I10 Essential (primary) hypertension (principal) | CPT/HCPCS: 99222 ==

== ENCOUNTER → 2023-11-07 21:48 | Outpatient (BNV) | payer SELFPAY | PROVIDERS: Admitting Provider Surgery; Emergency Provider Emergency Medicine; Visit Provider Surgery | DX: K35.30 Acute appendicitis with localized peritonitis, without perforation or gangrene (principal); I10 Essential (primary) hypertension; Z90.49 Acquired absence of other specified parts of digestive tract | CPT/HCPCS: 44970; 99024; 99222; 99232 ==

== ENCOUNTER → 2023-11-07 21:48 | Outpatient (BNV) | payer SELFPAY | PROVIDERS: Admitting Provider Surgery; Emergency Provider Emergency Medicine; Visit Provider Physician Assistant Medical | DX: I10 Essential (primary) hypertension (principal); K35.30 Acute appendicitis with localized peritonitis, without perforation or gangrene | CPT/HCPCS: 99222; 99232 ==

== ENCOUNTER 2023-11-13 16:25 | Outpatient (AMB) | payer SELFPAY ==
[2023-11-13 16:26] VITALS: BP 114/72; PULSE 115; O2SAT 97; BMI 24.9
--- NOTE | 2023-11-13 16:26 | HO.NEPHOV ---
Vital Signs 11/13/23 16:26 Height 5 ft 1 in Weight 132 lb BMI 24.9 BP 114/72 Blood Pressure Location Lt brachial Position Sitting Pulse 115 H Pulse Source Pulse Oximeter Pulse Oximetry (%) 97 Oxygen Delivery Method Room Air Intake Visit Reasons: Pt seen at [facility] on 11/07/23/ Conf Ophthalmic Asst Required: No Accompanied by: Self / Same As Patient Allergies Iodinated Contrast Media [CONTRAST, IV] Allergy (Unknown, Verified 11/07/23 17:45) ANAPHYLAXIS latex [LATEX] Allergy (Unknown, Verified 11/07/23 17:45) HIVES meperidine [From DEMEROL] Allergy (Unknown, Verified 11/07/23 17:45) UNKNOWN tramadol Allergy (Unknown, Verified 11/13/23 16:29) Unknown Medication List - Last Reconciled 11/13/23 by Elio Diamond MD amlodipine 5 mg See Protocol PO DAILY 30 days docusate sodium (Colace) 100 mg PO BID gabapentin 100 mg PO DAILY PRN gabapentin 200 mg PO BEDTIME PRN lisinopril 40 mg (2 x 20 mg) PO DAILY oxycodone 5 mg PO Q4H PRN trazodone 25 mg PO BEDTIME HPI Comments Details: Megan is a pleasant 48-year-old woman with a history of hypertension for the past few years. She has history of SLE. She is not on any treatment at this time. She has not seen any merchandising execution associate in more than 2 years No renal involvement. She has never seen a technical publications manager. History of breast cancer about 8 years ago. She underwent bilateral mastectomy followed by chemotherapy. She has been cancer-free since. He has no active follow-up with oncology Recently blood pressure has been difficult to control lisinopril was increased from 20 mg up to 40 mg a day. In spite of this blood pressure is suboptimal and amlodipine 5 mg was added few days ago. She has been monitoring her blood pressure at home last few days blood pressure has been in the normal range. She was recently hospitalized with abdominal pain and she was found to have appendicitis she underwent laparoscopic appendicectomy and currently on oral antibiotics. 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 She has 3 children. She has had few miscarriages. She has had on and off rectal bleed. Recently there has been a drop in hemoglobin. During routine evaluation in the emergency room she was found to have bilateral renal stones. She has been asymptomatic. She was also found to have a nodule in the right lung [facility] Medical History (Updated 11/13/23 @ 17:25 by Elio Diamond MD) Breast cancer Hypertension SLE (systemic lupus erythematosus related syndrome) Surgical History (Updated 11/13/23 @ 16:28 by ANDI Clay) History of appendectomy (~11/2023) History of left oophorectomy H/O breast reconstruction H/O bilateral mastectomy Social History Household Members: Spouse Housing: House Do you presently have visiting nurse or other home services: No Patient Tobacco Use Status: Never used Tobacco service: No Review of Systems Const Denies anorexia, Denies fever(s) and Denies weakness Eyes Denies blurry vision Card Denies no additional complaints and Denies dyspnea Resp Reports no additional complaints, Denies cough and Denies dyspnea GI Denies melena and Denies diarrhea Denies hematuria Musc Denies back pain and Denies tingling Skin/Breast Details: History of malar rash Denies rash and Denies skin ulcer Neuro Denies focal weakness, Denies tingling, Denies tremor(s) and Denies weakness Physical Exam Vital Signs: Last Vital Signs Pulse 115 H 11/13/23 16:26 BP 114/72 11/13/23 16:26 Pulse Ox 97 11/13/23 16:26 Oxygen Delivery Method Room Air 11/13/23 16:26 BMI result Body Mass Index 24.9 Const General: comfortable; No acute distress Orientation/consciousness: patient oriented x3 Eyes General: appearance normal, both eyes and all related structures Visual Bar: normal visual bar by confrontation Neck Neck: Yes supple and Yes no JVD Resp Effort & Inspection: normal respiratory effort and respiratory effort not decreased Auscultation: rhonchi Cardio Palpation: no palpable S3 and no palpable S4 Heart sounds: no rubs GI Inspection: Yes normal to inspection Palpation (GI): Soft to palpation Percussion: Yes normal to percussion Auscultation: normal bowel sounds General: Yes no CVA tenderness Back/Spine/Pelvis Back: no CVA tenderness Skin General skin exam: no petechiae and no purpura Neuro General: patient oriented x3 and no focal motor deficits Extrem General: No clubbing and No edema Results Reviewed Nephrology Results: Hgb 11.4 g/dl (12.0-16.0) L 11/08/23 WBC 8.6 X10*3/uL (4.8-10.8) 11/08/23 Plt Count 164 X10*3/uL (160-400) 11/08/23 Sodium 141 mmol/L (135-145) 11/07/23 Potassium 3.7 mmol/L (3.3-5.1) 11/07/23 Chloride 105 mmol/L (96-108) 11/07/23 Carbon Dioxide 24 mmol/L (22-29) 11/07/23 BUN 16 mg/dL (9-16) 11/07/23 Creatinine 0.97 mg/dL (0.5-1.4) 11/07/23 Calcium 9.4 mg/dL (8.4-10.2) 11/07/23 Urine Protein Negative mg/dL (Neg-Trace) 11/07/23 Assessment & Plan Assessment & Plan (1) Hypertension: Code(s): I10 - Essential (primary) hypertension Category: Medical Qualifiers: Hypertension type: primary hypertension Qualified Code(s): I10 - Essential (primary) hypertension Plan: . Middle-aged woman with a history of hypertension in the setting of SLE. With the current regimen blood pressure is well controlled. I will keep her on lisinopril 40 mg a day along with amlodipine 5 mg. Monitor blood pressure at home stay on low-sodium diet Re-evaluate in the next 2 weeks and adjust her medications. (2) SLE (systemic lupus erythematosus): Code(s): M32.9 - Systemic lupus erythematosus, unspecified Category: Medical Plan: . No significant hematuria or proteinuria at this time. Serum creatinine is normal. Refer to rheumatology Track down labs from [facility]. (3) Anemia: Code(s): D64.9 - Anemia, unspecified Category: Medical Plan: She has noted bright red per rectum. She is unsure if she has hemorrhoids. Referred to GI. (4) Pulmonary nodule: Code(s): R91.1 - Solitary pulmonary nodule Category: Medical Plan: . .Given the history of breast cancer , referred to Pulmonary for further evaluation of the nodule. . (5) Nephrolithiasis: Code(s): N20.0 - Calculus of kidney Category: Medical Plan: . Currently asymptomatic. This was an incidental finding during routine evaluation. I will hold off on any further investigations until about issues are addressed 1st. Orders: Orders Basic Metabolic Panel Today I10 - Essential (primary) hypertension Complete Blood Count Auto Diff Today I10 - Essential (primary) hypertension UA and rflx microscopic Today I10 - Essential (primary) hypertension Total Protein Urine Random Today I10 - Essential (primary) hypertension Creatinine Urine Today I10 - Essential (primary) hypertension Referrals Rheumatology Referral M32.9 - Systemic lupus erythematosus, unspecified Gastroenterology Referral K62.5 - Hemorrhage of anus and rectum, M32.9 - Systemic lupus erythematosus, unspecified Pulmonology Referral R91.1 - Solitary pulmonary nodule Medications: Refilled lisinopril 40 mg (2 x 20 mg) PO DAILY 60 tabs 0RF Coding Level of Care Code New Pt Level 5 (34850) Diagnoses Primary hypertension I10 Hypertension type: primary hypertension SLE (systemic lupus erythematosus) M32.9 Anemia D64.9 Pulmonary nodule R91.1 Nephrolithiasis N20.0
== END 2023-11-13 17:07 | disposition home or self-care (01) ==
PROVIDERS: PCP Nurse Practitioner Family; Visit Provider Internal Medicine Hypertension Specialist
DX: I10 Essential (primary) hypertension (principal); M32.9 Systemic lupus erythematosus, unspecified; D64.9 Anemia, unspecified; R91.1 Solitary pulmonary nodule; N20.0 Calculus of kidney
CPT/HCPCS: 99204

== ENCOUNTER → 2023-11-13 16:25 | Outpatient (BNVA) | payer OTHER, SELFPAY | PROVIDERS: PCP Nurse Practitioner Family; Visit Provider Internal Medicine Hypertension Specialist ==

== ENCOUNTER 2023-11-30 06:05 | Outpatient (REF) | payer OTHER, SELFPAY ==
[2023-11-30 06:40] LABS: MANUAL DIFF FLAG NO
[2023-11-30 06:52] LABS: Basophils Percent Auto 0.4 % (0-2); Eosinophils Absolute Auto 0.1 X10*3/uL (0.0-0.4); Eosinophils Percent Auto 1.2 % (0-4); Hematocrit 38.9 % (37.0-47.0); Imm Gran Abs Auto 0.04 X10*3/uL (0.00-0.03); Imm Gran Pct Auto 0.4 % (0.0-0.4); Lymphocytes Absolute Auto 2.5 X10*3/uL (1.2-4.9); Lymphocytes Percent Auto 27.7 % (20-40); Mean Corpuscular HGB Conc 33.4 g/dl (31.0-35.0); Mean Corpuscular Hemoglobin 30.4 pg (27.0-33.0); Mean Corpuscular Volume 91.1 fL (80.0-98.0); Mean Platelet Volume 9.4 fL (9.4-12.3); Monocytes Absolute Auto 0.6 X10*3/uL (0.1-1.2); Monocytes Percent Auto 6.3 % (2-11); Neutrophils Absolute Auto 5.8 x10*3/uL (2.0-8.3); Platelet Count 274 X10*3/uL (160-400); Red Blood Count 4.27 X10*6/uL (4.20-5.50); Red Cell Distribution Width 13.2 % (11.0-16.0); White Blood Count 9.1 X10*3/uL (4.8-10.8)
[2023-11-30 06:55] LABS: Anion Gap 14 (12-20); Blood Urea Nitrogen 21 mg/dL (9-16); Calcium 9.8 mg/dL (8.4-10.2); Carbon Dioxide 24 mmol/L (22-29); Chloride 107 mmol/L (96-108); Estimated Glomerular Filt Rate 57; Glucose Random 126 mg/dL (60-115); Potassium 3.8 mmol/L (3.3-5.1); Sodium 141 mmol/L (135-145)
== END 2023-11-30 06:06 | disposition home or self-care (01) ==
LOC: HO.LNP 06:05
PROVIDERS: Visit Provider Internal Medicine Hypertension Specialist
DX: I10 Essential (primary) hypertension (principal)
CPT/HCPCS: 80048; 85025

== ENCOUNTER 2023-12-11 11:04 | Outpatient (AMB) | payer OTHER, SELFPAY ==
[2023-12-11 11:04] VITALS: BP 140/90; PULSE 101; O2SAT 96; BMI 24.7
--- NOTE | 2023-12-11 11:04 | HO.NEPHOV ---
Vital Signs 12/11/23 11:04 12/11/23 11:25 Height 5 ft 1 in Weight 131 lb BMI 24.7 BP 140/90 H 120/80 Blood Pressure Location Rt brachial Rt brachial Position Sitting Sitting Pulse 101 H Pulse Source Pulse Oximeter Pulse Oximetry (%) 96 Oxygen Delivery Method Room Air Intake Visit Reasons: Hypertension/ LVM Marketing Communications Associate Required: No Accompanied by: Self / Same As Patient Allergies Iodinated Contrast Media [CONTRAST, IV] Allergy (Unknown, Verified 12/11/23 11:06) ANAPHYLAXIS latex [LATEX] Allergy (Unknown, Verified 12/11/23 11:06) HIVES meperidine [From DEMEROL] Allergy (Unknown, Verified 12/11/23 11:06) UNKNOWN tramadol Allergy (Unknown, Verified 12/11/23 11:06) Unknown Medication List - Last Reconciled 12/11/23 by Elio Diamond MD amlodipine 5 mg See Protocol PO DAILY 30 days docusate sodium (Colace) 100 mg PO BID gabapentin 100 mg PO DAILY PRN gabapentin 200 mg PO BEDTIME PRN lisinopril 40 mg (2 x 20 mg) PO DAILY oxycodone 5 mg PO Q4H PRN trazodone 25 mg PO BEDTIME HPI Comments Details: Megan is a pleasant 48-year-old woman with a history of hypertension for the past few years. She has history of SLE. She is not on any treatment at this time. She has not seen any power system electrical engineer in more than 2 years No renal involvement. She has never seen a molder trimmer. History of breast cancer about 8 years ago. She underwent bilateral mastectomy followed by chemotherapy. She has been cancer-free since. He has no active follow-up with oncology Recently blood pressure has been difficult to control lisinopril was increased from 20 mg up to 40 mg a day. In spite of this blood pressure is suboptimal and amlodipine 5 mg was added few days ago. She has been monitoring her blood pressure at home last few days blood pressure has been in the normal range. She was recently hospitalized with abdominal pain and she was found to have appendicitis she underwent laparoscopic appendicectomy and currently on oral antibiotics. 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 She has 3 children. She has had few miscarriages. She has had on and off rectal bleed. Recently there has been a drop in hemoglobin. During routine evaluation in the emergency room she was found to have bilateral renal stones. She has been asymptomatic. She was also found to have a nodule in the right lung 12/11/23 LAst week she had severe flank pain took Oxycodone and drank lots of water Frequent urination and pain resolved Probably passed a stone? [facility] Medical History (Updated 11/18/23 @ 00:02 by Jez Marie) Acute appendicitis Breast cancer Hypertension SLE (systemic lupus erythematosus related syndrome) Surgical History S/P laparoscopic appendectomy History of appendectomy (~11/2023) History of left oophorectomy H/O breast reconstruction H/O bilateral mastectomy Social History Household Members: Spouse Housing: House Do you presently have visiting nurse or other home services: No Patient Tobacco Use Status: Never used Tobacco service: No Physical Exam Vital Signs: Last Vital Signs Pulse 101 H 12/11/23 11:04 BP 140/90 H 12/11/23 11:04 Pulse Ox 96 12/11/23 11:04 Oxygen Delivery Method Room Air 12/11/23 11:04 BMI result Body Mass Index 24.7 Const General: comfortable; No acute distress Orientation/consciousness: patient oriented x3 Eyes General: appearance normal, both eyes and all related structures Visual Bar: normal visual bar by confrontation Neck Neck: Yes supple and Yes no JVD Resp Effort & Inspection: normal respiratory effort and respiratory effort not decreased Auscultation: rhonchi Cardio Palpation: no palpable S3 and no palpable S4 Heart sounds: no rubs GI Inspection: Yes normal to inspection Palpation (GI): Soft to palpation Percussion: Yes normal to percussion Auscultation: normal bowel sounds General: Yes no CVA tenderness Back/Spine/Pelvis Back: no CVA tenderness Skin General skin exam: no petechiae and no purpura Neuro General: patient oriented x3 and no focal motor deficits Extrem General: No clubbing and No edema Results Reviewed Nephrology Results: Hgb 13.0 g/dl (12.0-16.0) 11/30/23 WBC 9.1 X10*3/uL (4.8-10.8) 11/30/23 Plt Count 274 X10*3/uL (160-400) 11/30/23 Sodium 141 mmol/L (135-145) 11/30/23 Potassium 3.8 mmol/L (3.3-5.1) 11/30/23 Chloride 107 mmol/L (96-108) 11/30/23 Carbon Dioxide 24 mmol/L (22-29) 11/30/23 BUN 21 mg/dL (9-16) H 11/30/23 Creatinine 1.03 mg/dL (0.5-1.4) 11/30/23 Calcium 9.8 mg/dL (8.4-10.2) 11/30/23 Urine Protein Negative mg/dL (Neg-Trace) 11/07/23 Assessment & Plan Assessment & Plan (1) Hypertension: Code(s): I10 - Essential (primary) hypertension Category: Medical Qualifiers: Hypertension type: primary hypertension Qualified Code(s): I10 - Essential (primary) hypertension Plan: . Middle-aged woman with a history of hypertension in the setting of SLE. With the current regimen blood pressure is well controlled. I will keep her on lisinopril 40 mg a day along with amlodipine 5 mg. Monitor blood pressure at home stay on low-sodium diet . . (2) SLE (systemic lupus erythematosus): Code(s): M32.9 - Systemic lupus erythematosus, unspecified Category: Medical Plan: . No significant hematuria or proteinuria at this time. Serum creatinine is normal. Refered to rheumatology. (3) Anemia: Code(s): D64.9 - Anemia, unspecified Category: Medical Plan: HCT improved. She has noted bright red per rectum. She is unsure if she has hemorrhoids. Referred to GI. (4) Pulmonary nodule: Code(s): R91.1 - Solitary pulmonary nodule Category: Medical Plan: . .Given the history of breast cancer , referred to Pulmonary for further evaluation of the nodule. . (5) Nephrolithiasis: Code(s): N20.0 - Calculus of kidney Category: Medical Plan: . Ordered 24 hr urine studies Stay on lwo salt diet Increase PO fluid intake to maintain UO of 2 L Orders: Orders Sodium, 24Hr Urine Group Today N20.0 - Calculus of kidney Citric Acid 24hr Urine Today N20.0 - Calculus of kidney Uric Acid, 24Hr Urine Group Today N20.0 - Calculus of kidney Creatinine, 24 Hr Group Today N20.0 - Calculus of kidney Calcium, 24 Hr Ur Today N20.0 - Calculus of kidney Oxalate, 24 Hr Today N20.0 - Calculus of kidney Coding Level of Care Code Est Pt Level 4 (32066) Diagnoses Primary hypertension I10 Hypertension type: primary hypertension SLE (systemic lupus erythematosus) M32.9 Anemia D64.9 Pulmonary nodule R91.1 Nephrolithiasis N20.0
[2023-12-11 11:25] VITALS: BP 120/80
== END 2023-12-11 11:28 | disposition home or self-care (01) ==
PROVIDERS: PCP Nurse Practitioner Family; Visit Provider Internal Medicine Hypertension Specialist
DX: I10 Essential (primary) hypertension (principal); M32.9 Systemic lupus erythematosus, unspecified; D64.9 Anemia, unspecified; R91.1 Solitary pulmonary nodule; N20.0 Calculus of kidney
CPT/HCPCS: 99214

== ENCOUNTER → 2023-12-11 11:04 | Outpatient (BNVA) | payer OTHER, SELFPAY | PROVIDERS: PCP Nurse Practitioner Family; Visit Provider Internal Medicine Hypertension Specialist ==

== ENCOUNTER 2024-01-05 10:27 | Outpatient (AMB) | payer OTHER, SELFPAY ==
--- NOTE | 2024-01-05 10:29 | MHC.OFFVIS ---
Vital Signs 01/05/24 10:31 01/05/24 10:38 Height 5 ft 1 in 5 ft 1 in Weight 133 lb 133 lb BMI 25.1 BP 140/80 H Blood Pressure Location Rt brachial Position Sitting Pulse 78 Pulse Source Pulse Oximeter Pulse Oximetry (%) 100 Intake Visit Reasons: Pulmonary Nodule Supply Chain Systems Manager Required: No Block Stacker: Block Stacker offered & declined Accompanied by: Self / Same As Patient Allergies Iodinated Contrast Media [CONTRAST, IV] Allergy (Unknown, Verified 01/05/24 10:35) ANAPHYLAXIS latex [LATEX] Allergy (Unknown, Verified 01/05/24 10:35) HIVES meperidine [From DEMEROL] Allergy (Unknown, Verified 01/05/24 10:35) UNKNOWN tramadol Allergy (Unknown, Verified 01/05/24 10:35) Unknown Medication List - Last Reconciled 01/05/24 by Guera Marin LPN amlodipine 5 mg See Protocol PO DAILY 30 days docusate sodium (Colace) 100 mg PO BID gabapentin 100 mg PO DAILY PRN gabapentin 200 mg PO BEDTIME PRN lisinopril 40 mg (2 x 20 mg) PO DAILY oxycodone 5 mg PO Q4H PRN trazodone 25 mg PO BEDTIME HPI Comments Details: The patient is here for pulmonary evaluation. The patient is a 48 year woman with a known history of breast cancer back in 2015 in addition to a diagnosis of systemic lupus erythematous. It was around the same time. The patient was recently evaluated for appendicitis and she had a CT scan of the chest demonstrating a 4 mm pulmonary nodule. She has became concerned because of history and made a referral. Patient states that she has been noticing worsening cough. Specially at nighttime. Moderate severity. Sometimes we can order from sound sleep. In addition to that she has felt more shortness of breath. She has concerns it could be related to her history of lupus. Currently not being treated. The patient did have a PET scan done back at [facility] back in 2019 when she started developing worsening body aches in addition to chest discomfort after being diagnosed with breast cancer. I did personally review the CAT scan cuts of the PET scan demonstrating no evidence of any pulmonary nodules at that time. We also did review the CT scan of the abdomen that she had recently in 11/21/2023 demonstrating the 4-5 mm pulmonary nodule in the right lower lobe and also did demonstrate that she had another 3-4 mm nodule further down on the right side. Therefore, these nodules are new. She is concerned with a history breast cancer. At this point would need a formal CT scan of the chest to better address the full chest and see if she has any other abnormalities noted. Specially with ongoing respiratory symptoms. The patient does have a rheumatological evaluation plan for the next week or so. She is going to have additional blood work at that point. The question is if these nodular densities are all related to her connective tissue disease. [facility] Medical History (Updated 01/05/24 @ 14:34 by Gordo Uriostegui MD) History of breast cancer Chronic cough Acute appendicitis Breast cancer Hypertension SLE (systemic lupus erythematosus related syndrome) Surgical History S/P laparoscopic appendectomy History of appendectomy (~11/2023) History of left oophorectomy H/O breast reconstruction H/O bilateral mastectomy Social History (Updated 01/05/24 @ 10:36 by Guera Marin LPN) Household Members: Spouse Housing: House Do you presently have visiting nurse or other home services: No Patient Tobacco Use Status: Never used Tobacco service: No Review of Systems Const Denies anorexia, Denies fever(s) and Denies weakness Eyes Denies blurry vision Card Denies no additional complaints and Reports dyspnea on exertion Resp Reports cough, Reports dyspnea on exertion and Denies wheezing GI Denies melena and Denies diarrhea Denies hematuria Musc Denies back pain and Denies tingling Skin/Breast Details: History of malar rash Denies rash and Denies skin ulcer Neuro Denies focal weakness, Denies tingling, Denies tremor(s) and Denies weakness Von/Lymph Reports no additional complaints Aller/Immun Denies wheezing Physical Exam Vital Signs: Last Vital Signs Pulse 78 01/05/24 10:31 BP 140/80 H 01/05/24 10:31 Pulse Ox 100 01/05/24 10:31 BMI result Body Mass Index 25.1 Const General: comfortable HEENT Head: Yes normocephalic Neck Neck: Yes supple Chest Chest palpation & inspection: normal inspection of the chest Resp Effort & Inspection: normal respiratory effort Auscultation: clear to auscultation bilaterally Cardio Heart sounds: S1 normal heart sound present and S2 normal heart sound present GI Palpation (GI): Soft to palpation Skin General skin exam: no rashes or lesions noted Extrem General: No clubbing and No cyanosis Assessment & Plan Assessment & Plan (1) Chronic cough: Code(s): R05.3 - Chronic cough Category: Medical (2) Pulmonary nodule: Code(s): R91.1 - Solitary pulmonary nodule Category: Medical (3) SLE (systemic lupus erythematosus): Code(s): M32.9 - Systemic lupus erythematosus, unspecified Category: Medical Qualifiers: Systemic lupus erythematosus type: other Systemic lupus erythematosus organ involvement: unspecified Qualified Code(s): M32.8 - Other forms of systemic lupus erythematosus (4) History of breast cancer: Code(s): Z85.3 - Personal history of malignant neoplasm of breast Category: Medical Plan The patient is presenting with an abnormal CT scan of the abdomen demonstrating a pulmonary nodule. On my evaluation she has 2 nodules in the right lower lobe,one measuring 4-5 mm in the other 3-4 mm. I did review her PET scan from [facility] from 2019 and at that point the patient did not have any nodules. She will need a formal CT scan at this time of the chest to better address the nodular findings in view of her ongoing symptoms and past concerning history Bloodwork ARACELI as needed as a trial PFTs formal CT chest F/U 2 months Orders: Orders Complete Blood Count Auto Diff Today R05.3 - Chronic cough Hypersensitive Pneumonitis Prf Today R05.3 - Chronic cough, R91.8 - Other nonspecific abnormal finding of lung field Immunoglobulin E Today R05.3 - Chronic cough CT chest wo IV con Today R91.1 - Solitary pulmonary nodule PFT pulmonary function test Today R05.3 - Chronic cough Medications: New albuterol sulfate 90 mcg/actuation 2 inhalations inhalation Q6H 30 days PRN 18 grams 12RF shortness of breath or wheezing J44.9 - Chronic obstructive pulmonary disease, unspecified Coding Level of Care Code New Pt Level 4 (52505) Diagnoses Chronic cough R05.3 Pulmonary nodule R91.1 Other forms of systemic lupus erythematosus, unspecified organ involvement status M32.8 Systemic lupus erythematosus type: other Systemic lupus erythematosus organ involvement: unspecified History of breast cancer Z85.3 Time Spent (min) 45
[2024-01-05 10:31] VITALS: BP 140/80; PULSE 78; O2SAT 100; BMI 25.1
--- NOTE | 2024-01-05 10:38 | A.OFFVIS_ITS ---
Vital Signs 01/05/24 10:31 Height 5 ft 1 in Weight 143 lb 4.807 oz BMI 27.1 BP 140/80 H Blood Pressure Location Rt brachial Position Sitting Pulse 78 Pulse Source Pulse Oximeter Pulse Oximetry (%) 100 Intake Visit Reasons: Pulmonary Nodule Allergies Iodinated Contrast Media [CONTRAST, IV] Allergy (Unknown, Verified 01/05/24 10:35) ANAPHYLAXIS latex [LATEX] Allergy (Unknown, Verified 01/05/24 10:35) HIVES meperidine [From DEMEROL] Allergy (Unknown, Verified 01/05/24 10:35) UNKNOWN tramadol Allergy (Unknown, Verified 01/05/24 10:35) Unknown Medication List - Last Reconciled 01/05/24 by Guera Marin LPN amlodipine 5 mg See Protocol PO DAILY 30 days docusate sodium (Colace) 100 mg PO BID gabapentin 100 mg PO DAILY PRN gabapentin 200 mg PO BEDTIME PRN lisinopril 40 mg (2 x 20 mg) PO DAILY oxycodone 5 mg PO Q4H PRN trazodone 25 mg PO BEDTIME PFSH Medical History (Updated 11/18/23 @ 00:02 by Jez Marie) Acute appendicitis Breast cancer Hypertension SLE (systemic lupus erythematosus related syndrome) Surgical History S/P laparoscopic appendectomy History of appendectomy (~11/2023) History of left oophorectomy H/O breast reconstruction H/O bilateral mastectomy Social History (Updated 01/05/24 @ 10:36 by Guera Marin LPN) Household Members: Spouse Housing: House Do you presently have visiting nurse or other home services: No Patient Tobacco Use Status: Never used Tobacco service: No Physical Exam Vital Signs: Last Vital Signs Pulse 78 01/05/24 10:31 BP 140/80 H 01/05/24 10:31 Pulse Ox 100 01/05/24 10:31 BMI result Body Mass Index 27.1 Quality Reporting (2019) Adult ([facility] 138/2/22/69) Body Mass Index: 27.1 Coding
== END 2024-01-05 11:07 | disposition home or self-care (01) ==
LOC: HO.HPS 10:27
PROVIDERS: PCP Nurse Practitioner Family; Referring Provider Internal Medicine Hypertension Specialist; Visit Provider Hospitalist
DX: R05.3 Chronic cough (principal); R91.1 Solitary pulmonary nodule; M32.8 Other forms of systemic lupus erythematosus; Z85.3 Personal history of malignant neoplasm of breast
CPT/HCPCS: 99204

== ENCOUNTER → 2024-01-05 10:27 | Outpatient (BNVA) | payer OTHER, SELFPAY | PROVIDERS: PCP Nurse Practitioner Family; Referring Provider Internal Medicine Hypertension Specialist; Visit Provider Hospitalist ==

== ENCOUNTER 2024-01-14 07:57 | Outpatient (AMB) | payer OTHER, SELFPAY ==
[2024-01-14 08:06] VITALS: BP 130/70; PULSE 80; O2SAT 99; BMI 24.9
--- NOTE | 2024-01-14 08:06 | MHC.OFFVIS ---
Vital Signs 01/14/24 08:06 Height 5 ft 1 in Weight 132 lb 0.91 oz BMI 24.9 BP 130/70 Blood Pressure Location Lt brachial Position Sitting Pulse 80 Pulse Source Pulse Oximeter Pulse Oximetry (%) 99 Oxygen Delivery Method Room Air Intake Visit Reasons: lupus/lm Intake Note: andres presents today as a new patient, internally referred for Lupus by Dr. Diamond. Allergies Iodinated Contrast Media [CONTRAST, IV] Allergy (Unknown, Verified 01/14/24 08:08) ANAPHYLAXIS latex [LATEX] Allergy (Unknown, Verified 01/14/24 08:08) HIVES meperidine [From DEMEROL] Allergy (Unknown, Verified 01/14/24 08:08) UNKNOWN tramadol Allergy (Unknown, Verified 01/14/24 08:08) Unknown Medication List - Last Reconciled 01/14/24 by Milka Kumar MD albuterol sulfate 90 mcg/actuation 2 inhalations inhalation Q6H PRN 30 days amlodipine 5 mg See Protocol PO DAILY 30 days docusate sodium (Colace) 100 mg PO BID gabapentin 100 mg PO DAILY PRN gabapentin 200 mg PO BEDTIME PRN lisinopril 40 mg (2 x 20 mg) PO DAILY oxycodone 5 mg PO Q4H PRN trazodone 25 mg PO BEDTIME HPI Comments Details: Patient is a 48 y.o. with hypertension who presents for evaluation of polyarthralgias. Patient notes that she had 2 children without issue then following her second child she had 5 miscarriages between 13-18 weeks. Sought OB intervention and had progesterone shots. Had 3rd child without issue. 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 2016 - breast cancer. Double mastectomy and 12 weeks of Chemotherapy with Tamoxifen and Herceptin Started to experience joint pain. Stopped Tamoxifen. Joint pain persisted even after 4 months of cessation 2016/2018 saw a insurance case manager and was told that she may have mild Lupus but does not meet criteria. She opted not to start plaquenil. Joint pain: hips and knees. Hands, sometimes with swelling and stiffness but her hips and knees are the main issue. At times it is difficult to lay on her sides. Has gotten steroid injections in the past but the relief was not sustained. Pain worse in the past 6 months. Rashes: does get faint rash on cheeks and forehead. Resolves on its own. Photosensitivity Dry eyes/dry mouth No alopecia No oral/nasal ulcers Fingers change color in the cold Denies history of seizure, CVA, psychosis, history of kidney problems, history of cytopenias, history of VTE including PE or DVTs [facility] Medical History (Updated 01/14/24 @ 10:23 by Milka Kumar MD) Fibromyalgia Polyarthralgia History of breast cancer Chronic cough Acute appendicitis Breast cancer Hypertension Surgical History S/P laparoscopic appendectomy History of appendectomy (~11/2023) History of left oophorectomy H/O breast reconstruction H/O bilateral mastectomy Social History (Updated 01/05/24 @ 10:36 by Guera Marin LPN) Household Members: Spouse Housing: House Do you presently have visiting nurse or other home services: No Patient Tobacco Use Status: Never used Tobacco service: No Review of Systems Const Details: Review of Systems Constitutional: Denies fever, chills, weight loss ENT: Denies vision changes, eye pain or eye redness, dental caries GI: Denies nausea, vomiting, diarrhea, abdominal pain, change in BM Pulm: Denies SOB, BRAXTON, hemoptysis, wheezing Cards: Denies chest pain, palpitations Skin: Denies nail changes, photosensitivity, REGIONAL LOSS PREVENTION MANAGER: Denies headaches, weakness, paresthesias, recurrent falls MSK: as per HPI All other systems reviewed and are unremarkable except noted above Physical Exam Vital Signs: Last Vital Signs Pulse 80 01/14/24 08:06 BP 130/70 01/14/24 08:06 Pulse Ox 99 01/14/24 08:06 Oxygen Delivery Method Room Air 01/14/24 08:06 BMI result Body Mass Index 24.9 Physical Examination CONSTITUITIONAL Patient alert and cooperative. Well appearing and in no apparent painful distress HEENT Conjunctiva and sclera clear. ?Pupils equal round and reactive to light. ?No lymphadenopathy. ?Normal dentition. No oral or nasal ulcers noted. No evidence of discoid rash to the bean of ears Negative Radha's test bilaterally CHEST/RESPIRATORY SYSTEM Normal respiratory effort and able to speak in complete sentences. ?Clear to auscultation bilaterally. ?No crackles, rales, rhonchi, wheezes heard. CARDIAC SYSTEM Regular rate and rhythm. ?S1 and S2 heard no murmurs. ?Radial pulses intact bilaterally MSK Hands: ?Good police justice strength bilaterally - 5/5. ?No deformities noted. ?Tenderness to palpation of MCPs and PIPs. Wrists: ?Full range of motion at the wrists without pain. ?No tenderness to palpation or synovitis noted to the wrists. Elbows: Full range of motion without pain. No tenderness, weakness, swelling, increased warmth or erythema. Shoulders: Full range of motion without pain. No tenderness, weakness, swelling, increased warmth or erythema. Hips: Full range of motion without pain. Hip bursa: Bilateral tenderness to palpation Knees: ?Full range of motion. ?No tenderness, swelling, increased warmth or erythema.?No effusion or crepitations Ankles: Full range of motion. ?No tenderness, swelling, increased warmth or erythema.? Feet: ?Negative squeeze test. ?No tenderness to palpation or swelling of the MTPs. Tender points:??Tenderness to palpation of the neck, shoulders, chest, elbows, hips, buttocks or knees. SKIN Faint erythema noted to bilateral cheeks. Normal nail fold capillaries Results Reviewed Results Reviewed: Results reviewed on phone: 03/01/2022 RF normal HAJA 1:160 [id number] CCP normal ESR 29 (Normal based on age 28) Laboratory Tests 11/30/23 06:37 WBC 9.1 RBC 4.27 Hgb 13.0 Hct 38.9 Plt Count 274 D Sodium 141 Potassium 3.8 Chloride 107 Carbon Dioxide 24 BUN 21 H Creatinine 1.03 Assessment & Plan Assessment & Plan (1) Polyarthralgia: Code(s): M25.50 - Pain in unspecified joint Category: Medical Plan: #Polyarthralgias Patient with polyarthralgias mainly involving her hips and her knees. But sometimes involving her hands. At this time patient may have a component of undifferentiated connective tissue disease but there were no objective findings of synovitis or inflammatory joint disease. She does not have clinical dry eyes with a normal Radha's test bilaterally right > 15 mm and left > 15 mm after 5 minutes. Nail fold capillaries were normal. Patient is very frustrated with findings. States that she knows that something is wrong and she does not want things to be swept under the rug. Explained to patient that at this time she does not fully meet criteria for any autoimmune disease however we will check blood work and urine. We will also check MRI of hands. (2) Fibromyalgia: Code(s): M79.7 - Fibromyalgia Category: Medical Plan: #Fibromyalgia Patient definitely has a component of fibromyalgia today. With positive tender points, a elevated widespread pain index as well as high symptom severity scale. She also has bilateral trochanteric bursitis which can be seen in fibromyalgia. Ideally I would have like to have given her a steroid injection today however patient was frustrated with the preliminary results of my examination and I thought best to hold off on any procedures until we have all the results. Plan I spent 60 minutes reviewing the record and labs, seeing the patient, discussing the treatment plan and documenting in the medical record ? Orders: Orders HAJA Reflex Titer and Pattern Today M25.50 - Pain in unspecified joint Complement C3 Today M25.50 - Pain in unspecified joint Complement C4 Today M25.50 - Pain in unspecified joint Erythrocyte Sedimentation Rate Today M25.50 - Pain in unspecified joint C Reactive Protein Today M25.50 - Pain in unspecified joint Lupus Anticoagulant Panel Today M25.50 - Pain in unspecified joint Protein Creatinine Ratio, Ur Today M25.50 - Pain in unspecified joint UA w Microscopic Today M25.50 - Pain in unspecified joint Cardiolipin Antibodies Today M25.50 - Pain in unspecified joint CK, Total+Isoenzymes, Serum Today M25.50 - Pain in unspecified joint Thyroid Peroxidase Antibodies Today M25.50 - Pain in unspecified joint Thyroglobulin Antibodies Today M25.50 - Pain in unspecified joint TSH reflex Free T4 Today M25.50 - Pain in unspecified joint Anti Extractable Nuclear Ag Today M25.50 - Pain in unspecified joint Anti DNA DS Antibody Today M25.50 - Pain in unspecified joint Beta-2 Glycoprotein Antibody Today M25.50 - Pain in unspecified joint Complete Blood Count Auto Diff Today M25.50 - Pain in unspecified joint Comprehensive Met. Panel Today M25.50 - Pain in unspecified joint Immunoglobulins,IgG IgA IgM Today B99.9 - Unspecified infectious disease Immunoglobulin G Subclasses Today B99.9 - Unspecified infectious disease MR hand RT wo con Today M25.50 - Pain in unspecified joint, M79.89 - Other specified soft tissue disorders MR hand LT wo con Today M25.50 - Pain in unspecified joint, M79.89 - Other specified soft tissue disorders Coding Level of Care Code New Pt Level 5 (74952) Complex EM visit Add On G2211 Diagnoses Polyarthralgia M25.50 Fibromyalgia M79.7
== END 2024-01-14 09:05 | disposition home or self-care (01) ==
PROVIDERS: PCP Nurse Practitioner Family; Visit Provider Student in an Organized Health Care Education/Training Program
DX: M79.7 Fibromyalgia (principal); M25.50 Pain in unspecified joint
CPT/HCPCS: 99215

== ENCOUNTER → 2024-01-14 07:57 | Outpatient (BNVA) | payer OTHER, SELFPAY | PROVIDERS: PCP Nurse Practitioner Family; Visit Provider Student in an Organized Health Care Education/Training Program ==

== ENCOUNTER 2024-02-03 06:08 | Outpatient (REF) | payer OTHER, SELFPAY ==
[2024-02-03 06:32] LABS: MANUAL DIFF FLAG NO
[2024-02-03 07:33] LABS: Basophils Percent Auto 0.3 % (0-2); Eosinophils Absolute Auto 0.1 X10*3/uL (0.0-0.4); Eosinophils Percent Auto 1.6 % (0-4); Hematocrit 37.1 % (37.0-47.0); Hemoglobin 12.4 g/dl (12.0-16.0); Imm Gran Abs Auto 0.02 X10*3/uL (0.00-0.03); Imm Gran Pct Auto 0.2 % (0.0-0.4); Lymphocytes Absolute Auto 2.6 X10*3/uL (1.2-4.9); Lymphocytes Percent Auto 29.3 % (20-40); Mean Corpuscular HGB Conc 33.4 g/dl (31.0-35.0); Mean Corpuscular Hemoglobin 30.8 pg (27.0-33.0); Mean Corpuscular Volume 92.1 fL (80.0-98.0); Mean Platelet Volume 9.4 fL (9.4-12.3); Monocytes Absolute Auto 0.5 X10*3/uL (0.1-1.2); Monocytes Percent Auto 5.2 % (2-11); Neutrophils Absolute Auto 5.7 x10*3/uL (2.0-8.3); Neutrophils Percent Auto 63.4 % (45-73); Platelet Count 244 X10*3/uL (160-400); Red Blood Count 4.03 X10*6/uL (4.20-5.50); White Blood Count 8.9 X10*3/uL (4.8-10.8)
[2024-02-03 07:40] LABS: Appearance Urine Clear; Color Urine Yellow; Glucose Urine UA Negative (Negative); Leukocyte Esterase Urine Large (3+) (Negative); Nitrite Urine Negative (Negative); PH 7.5 (5.0-9.0); UMIC TRIGGER UA YES; Urine Blood Negative (Negative); Urine Ketones Negative (Negative); Urine Protein Trace mg/dL (Neg-Trace)
[2024-02-03 07:46] LABS: Bacteria Urine 2+ (None Seen); Hyaline Casts Urine 0-2 /LPF (0-2); RBC Urine 0-2 /HPF (0-2); WBC Urine >50 /HPF (0-5)
[2024-02-03 08:02] LABS: Creatinine Urine 146.67 mg/dL; Protein/Creatinine Ratio, Ur 0.07 (<0.2); Total Protein Urine Random 10 mg/dL (<12)
[2024-02-03 08:06] LABS: Alanine Aminotransferase 42 U/L (0-31); Albumin Level 4.6 g/dL (3.5-5.0); Alkaline Phosphatase 76 U/L (39-117); Anion Gap 14 (12-20); Aspartate Amino Transferase 36 U/L (5-31); Bilirubin Total 0.5 mg/dL (0.0-1.0); Blood Urea Nitrogen 16 mg/dL (9-16); C Reactive Protein 0.15 mg/dL (< or = 0.50); Calcium 9.5 mg/dL (8.4-10.2); Carbon Dioxide 26 mmol/L (22-29); Chloride 104 mmol/L (96-108); Estimated Glomerular Filt Rate 44; Glucose Random 107 mg/dL (60-115); Potassium 3.8 mmol/L (3.3-5.1); Sodium 140 mmol/L (135-145); Total Protein 7.8 g/dL (6.5-8.0)
[2024-02-03 08:11] LABS: Erythrocyte Sedimentation Rate 11 MM/HR (0-20)
[2024-02-04 16:14] LABS: Complement C3 157 mg/dL (83-193)
[2024-02-04 20:33] LABS: IgA 330 mg/dL (47-310); IgG 996 mg/dL (600-1640); IgM 105 mg/dL (50-300)
[2024-02-04 22:29] LABS: Cardiolipin IgG Ab <2.0 GPL-U/mL; Cardiolipin IgM Ab 3.2 MPL-U/mL
[2024-02-05 13:38] LABS: Immunoglobulin G Subclass 1 495 mg/dL (382-929); Immunoglobulin G Subclass 2 223 mg/dL (241-700); Immunoglobulin G Subclass 3 47 mg/dL (22-178); Immunoglobulin G Subclass 4 55.5 mg/dL (4-86); Immunoglobulin G Total 839 mg/dL (600-1640)
[2024-02-05 14:18] LABS: Anti DNA DS Antibody 4 IU/mL; SM/Ribonucleoprotein Ab <1.0 NEG AI (<1.0 NEG); Smith Protein <1.0 NEG AI (<1.0 NEG)
[2024-02-06 05:39] LABS: PTT (LAC) Screen 31 sec (<=40)
[2024-02-06 12:44] LABS: Anti Nuclear Antibody Screen POSITIVE (NEGATIVE)
[2024-02-06 12:53] LABS: Thyroglobulin Antibodies <1 IU/mL (< or = 1); Thyroid Peroxidase Antibodies <1 IU/mL (<9)
[2024-02-09 20:33] LABS: Beta-2 Glycoprotein IgA <2.0 U/mL (<20.0); Beta-2 Glycoprotein IgG <2.0 U/mL (<20.0); Beta-2 Glycoprotein IgM 2.3 U/mL (<20.0)
[2024-02-17 18:13] LABS: CK-BB None Detected (None Detected); CK-MB 0 % (<5); CK-MM 100 % (95-100); Creatine Kinase,Total,Serum 55 U/L (29-143)
== END 2024-02-03 06:09 | disposition home or self-care (01) ==
LOC: HO.LAB 06:08
PROVIDERS: Visit Provider Student in an Organized Health Care Education/Training Program
DX: M25.50 Pain in unspecified joint (principal); B99.9 Unspecified infectious disease
CPT/HCPCS: 36415; 80053; 81001; 82552; 82570; 82784; 84156; 84443; 85025; 85597; 85598; 85613; 85652; 85730; 86038; 86039; 86140; 86146; 86147; 86160; 86225; 86235; 86376; 86800

== ENCOUNTER → 2024-03-04 07:16 | Outpatient (BNV) | payer OTHER, SELFPAY | PROVIDERS: PCP Nurse Practitioner Family; Visit Provider Specialist | DX: M79.641 Pain in right hand (principal); M79.642 Pain in left hand | CPT/HCPCS: 73218 ==

== ENCOUNTER 2024-03-04 07:17 | Outpatient (REF) | payer OTHER, SELFPAY ==
--- NOTE | ~2024-03-04 | MR_ITS ---
CLINICAL HISTORY: M25.50 - Pain in unspecified joint MR left hand without gadolinium Comparison: None Findings: No acute fracture or pathologic bone lesion. No joint effusion. Flexion and extension tendons are intact and normally sized. Components in the visualized carpal tunnel are intact and normal in appearance. There are no abnormal masses or significant fluid collections. IMPRESSION: 1. Unremarkable left hand MRI. This document has been electronically signed by: Chris Arana MD on 03/04/2024 20:14:08
--- NOTE | ~2024-03-04 | MR_ITS ---
CLINICAL HISTORY: M25.50 - Pain in unspecified joint MR of the right hand without gadolinium Comparison: None Findings: No acute fracture or pathologic bone lesion. No effusion. Flexor and extensor tendons are intact. Visualized structures in the carpal tunnel are intact and normal in size. There are no abnormal masses or focal fluid collections IMPRESSION: Unremarkable hand MRI. This document has been electronically signed by: Chris Arana MD on 03/04/2024 20:14:18
== END 2024-03-04 07:18 | disposition home or self-care (01) ==
LOC: HO.MRI 07:17
PROVIDERS: PCP Nurse Practitioner Family; Visit Provider Student in an Organized Health Care Education/Training Program
DX: M54.50 Low back pain, unspecified (principal); M79.89 Other specified soft tissue disorders
CPT/HCPCS: 73218

== ENCOUNTER 2024-03-08 07:26 | Outpatient (REF) | payer OTHER, SELFPAY ==
--- NOTE | ~2024-03-08 | CT_ITS ---
CLINICAL HISTORY: R91.1 - Solitary pulmonary nodule CT chest without contrast Comparison: None Findings: The heart is normal size. The visualized thyroid and mediastinum are unremarkable. There is right middle lobe subsegmental atelectasis or scarring. There is a 0.2 cm semi solid right lower lobe pulmonary lesion with possible associated vascular structures extending to and from the lesion suggesting vascular malformation. The upper abdomen is unremarkable. No acute fractures. IMPRESSION: 1. Possible incidental 0.2 cm right lower lobe vascular malformation. Comparison with prior studies, if available, would be of value. If not, consider a 12-18 month follow-up chest CT to reassess. This document has been electronically signed by: Chris Arana MD on 03/08/2024 08:50:14
== END 2024-03-08 07:27 | disposition home or self-care (01) ==
LOC: HO.CT 07:26
PROVIDERS: PCP Nurse Practitioner Family; Visit Provider Hospitalist
DX: R91.1 Solitary pulmonary nodule (principal)
CPT/HCPCS: 71250

== ENCOUNTER → 2024-03-08 07:28 | Outpatient (BNV) | payer OTHER, SELFPAY | PROVIDERS: PCP Nurse Practitioner Family; Visit Provider Specialist | DX: R91.1 Solitary pulmonary nodule (principal) | CPT/HCPCS: 71250 ==

== ENCOUNTER 2024-03-15 16:24 | Outpatient (REF) | payer OTHER, SELFPAY ==
[2024-03-15 16:52] LABS: Appearance Urine Clear; Color Urine Yellow; Glucose Urine UA Negative (Negative); Leukocyte Esterase Urine Small (1+) (Negative); Nitrite Urine Negative (Negative); PH 5.5 (5.0-9.0); UMIC TRIGGER UA YES; Urine Blood Negative (Negative); Urine Ketones Negative (Negative); Urine Protein Negative (Neg-Trace)
[2024-03-15 16:57] LABS: Bacteria Urine None Seen (None Seen); Hyaline Casts Urine 0-2 /LPF (0-2); RBC Urine 0-2 /HPF (0-2); Squamous Epithelial Cell Urine 0-2 /HPF (0-2)
[2024-03-15 18:54] LABS: Creatinine Urine 120.21 mg/dL; Total Protein Urine Random < 7 mg/dL (<12)
[2024-03-16 10:32] LABS: Creatinine, mg/dL 151.27
[2024-03-16 10:40] LABS: Uric Acid, mg/dL 44.4 mg/dL
[2024-03-16 11:40] LABS: Creatinine, 24Hr Urine 1.4 G/Day (1.0-2.0); Sodium 24 Hr Urine 124.5 mmol/Day (40-220); Total Volume 24 Hour Urine 950 mL
[2024-03-16 11:41] LABS: Creatinine, 24Hr Urine 1.4 G/Day (1.0-2.0); Total Volume 24 Hour Urine 950 mL; Uric Acid, 24 Hr Urine 421.8 mg/Day (250-750)
[2024-03-17 16:53] LABS: Calcium, 24 Hr Urine 124 mg/24 h; Calcium/Creatinine Ratio 96 mg/g creat (30-275)
[2024-03-20 03:29] LABS: 24hr Urine Total Volume 950 mL; Oxalic Acid 24 Urine 18.1 mg/24 h (3.6-38.0)
[2024-03-23 13:29] LABS: 24hr Urine Total Volume 950 mL; Citric Acid, 24hr Urine 286 mg/24 h (100-1300); Citric Acid/Creat Ratio 24U 201 mg/g creat (180-1070); Creatinine, 24U 1.42 g/24 h (0.50-2.15)
== END 2024-03-15 16:25 | disposition home or self-care (01) ==
LOC: HO.LNP 16:24
PROVIDERS: Visit Provider Internal Medicine Hypertension Specialist
DX: I10 Essential (primary) hypertension (principal); N20.0 Calculus of kidney
CPT/HCPCS: 81001; 82340; 82507; 82570; 83945; 84156; 84300; 84560

== ENCOUNTER 2024-03-16 09:38 | Outpatient (AMB) | payer OTHER, SELFPAY ==
[2024-03-16 09:47] VITALS: BP 148/92; PULSE 95; O2SAT 98; BMI 24.9
--- NOTE | 2024-03-16 09:47 | HO.NEPHOV_ITS ---
Vital Signs 03/16/24 09:47 Height 5 ft 1 in Weight 132 lb BMI 24.9 BP 148/92 H Blood Pressure Location Lt brachial Position Sitting Pulse 95 Pulse Source Pulse Oximeter Pulse Oximetry (%) 98 Oxygen Delivery Method Room Air Intake Visit Reasons: Hypertension/ LM Interactive Media Marketing Strategist Required: No Accompanied by: Self / Same As Patient Allergies Iodinated Contrast Media [CONTRAST, IV] Allergy (Unknown, Verified 03/16/24 09:49) ANAPHYLAXIS latex [LATEX] Allergy (Unknown, Verified 03/16/24 09:49) HIVES meperidine [From DEMEROL] Allergy (Unknown, Verified 03/16/24 09:49) UNKNOWN tramadol Allergy (Unknown, Verified 03/16/24 09:49) Unknown Medication List - Last Reconciled 03/16/24 by Elio Diamond MD albuterol sulfate 90 mcg/actuation 2 inhalations inhalation Q6H PRN 30 days amlodipine 5 mg See Protocol PO DAILY 30 days docusate sodium (Colace) 100 mg PO BID gabapentin 100 mg PO DAILY PRN gabapentin 200 mg PO BEDTIME PRN lisinopril 40 mg (2 x 20 mg) PO DAILY oxycodone 5 mg PO Q4H PRN trazodone 25 mg PO BEDTIME HPI Comments Details: Megan is a pleasant 48-year-old woman with a history of hypertension for the past few years. She has history of SLE. She is not on any treatment at this time. She has not seen any bilingual patient support caseworker in more than 2 years No renal involvement. She has never seen a digital music instructor. History of breast cancer about 8 years ago. She underwent bilateral mastectomy followed by chemotherapy. She has been cancer-free since. He has no active follow-up with oncology Recently blood pressure has been difficult to control lisinopril was increased from 20 mg up to 40 mg a day. In spite of this blood pressure is suboptimal and amlodipine 5 mg was added few days ago. She has been monitoring her blood pressure at home last few days blood pressure has been in the normal range. She was recently hospitalized with abdominal pain and she was found to have appendicitis she underwent laparoscopic appendicectomy and currently on oral antibiotics. 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 She has 3 children. She has had few miscarriages. She has had on and off rectal bleed. Recently there has been a drop in hemoglobin. During routine evaluation in the emergency room she was found to have bilateral renal stones. She has been asymptomatic. She was also found to have a nodule in the right lung 12/11/23 LAst week she had severe flank pain took Oxycodone and drank lots of water Frequent urination and pain resolved Probably passed a stone? 03/16/2024. She has been feeling fatigue and generalized body pain mostly in the hips. She was seen by Rheumatology. Workup in progress. She did not take her medications this morning since she just came from work. [facility] Medical History (Updated 01/14/24 @ 10:23 by Milka Kumar MD) Fibromyalgia Polyarthralgia History of breast cancer Chronic cough Acute appendicitis Breast cancer Hypertension Surgical History S/P laparoscopic appendectomy History of appendectomy (~11/2023) History of left oophorectomy H/O breast reconstruction H/O bilateral mastectomy Social History Household Members: Spouse Housing: House Do you presently have visiting nurse or other home services: No Patient Tobacco Use Status: Never used Tobacco service: No Physical Exam Vital Signs: Last Vital Signs Pulse 95 03/16/24 09:47 BP 148/92 H 03/16/24 09:47 Pulse Ox 98 03/16/24 09:47 Oxygen Delivery Method Room Air 03/16/24 09:47 BMI result Body Mass Index 24.9 Comfortable Neck supple no JVD. Lungs entry equal no rales. Heart S1-S2 heard no gallop or rub. Abdomen soft nontender. Neuro alert awake oriented. No asterixis. Extremities no edema. Results Reviewed Nephrology Results: Hgb 12.4 g/dl (12.0-16.0) 02/03/24 WBC 8.9 X10*3/uL (4.8-10.8) 02/03/24 Plt Count 244 X10*3/uL (160-400) 02/03/24 Sodium 140 mmol/L (135-145) 02/03/24 Potassium 3.8 mmol/L (3.3-5.1) 02/03/24 Chloride 104 mmol/L (96-108) 02/03/24 Carbon Dioxide 26 mmol/L (22-29) 02/03/24 BUN 16 mg/dL (9-16) 02/03/24 Creatinine 1.30 mg/dL (0.5-1.4) 02/03/24 Calcium 9.5 mg/dL (8.4-10.2) 02/03/24 Urine Protein Negative mg/dL (Neg-Trace) 03/15/24 Urine Creatinine 120.21 mg/dL 03/15/24 Protein/Creatinin Ratio 0.07 (<0.2) 02/03/24 Assessment & Plan Assessment & Plan (1) Hypertension: Code(s): I10 - Essential (primary) hypertension Category: Medical Qualifiers: Hypertension type: primary hypertension Qualified Code(s): I10 - Essential (primary) hypertension Plan: . Middle-aged woman with a history of hypertension in the setting of ?SLE. With the current regimen blood pressure is well controlled. Today's reading is elevated since she did not take her medications and she ran out of amlodipine about a week ago. I will keep her on lisinopril 40 mg a day along with amlodipine 5 mg. Monitor blood pressure at home stay on low-sodium diet . . (2) Anemia: Code(s): D64.9 - Anemia, unspecified Category: Medical Plan: HCT improved. She has noted bright red per rectum. She is unsure if she has hemorrhoids. Referred to GI. (3) Pulmonary nodule: Code(s): R91.1 - Solitary pulmonary nodule Category: Medical Plan: . .Given the history of breast cancer , referred to Pulmonary for further evaluation of the nodule. Currently being managed by Dr. Uriostegui . (4) Nephrolithiasis: Code(s): N20.0 - Calculus of kidney Category: Medical Plan: . Twenty-four urine studies were done. Results are pending Stay on low salt diet Increase PO fluid intake to maintain UO of 2 L Plan We will give a trial of low-dose steroids to see if it helps with her bilateral hip pains and generalized body pain Orders: Orders Comprehensive Met. Panel Today I10 - Essential (primary) hypertension, N20.0 - Calculus of kidney Medications: New prednisone 2 tabs PO for 2 days and then 1 tab a day 5 mg PO DAILY 10 tabs 0RF arthralgia Changed From amlodipine 5 mg See Protocol PO DAILY 30 days 30 tabs 0RF To amlodipine 5 mg See Protocol PO DAILY 365 tabs 3RF 365 days Coding Level of Care Code Est Pt Level 4 (93184) Diagnoses Primary hypertension I10 Hypertension type: primary hypertension Anemia D64.9 Pulmonary nodule R91.1 Nephrolithiasis N20.0
== END 2024-03-16 10:11 | disposition home or self-care (01) ==
PROVIDERS: PCP Nurse Practitioner Family; Visit Provider Internal Medicine Hypertension Specialist
DX: I10 Essential (primary) hypertension (principal); D64.9 Anemia, unspecified; R91.1 Solitary pulmonary nodule; N20.0 Calculus of kidney
CPT/HCPCS: 99214

== ENCOUNTER → 2024-03-16 09:38 | Outpatient (BNVA) | payer OTHER, SELFPAY | PROVIDERS: PCP Nurse Practitioner Family; Visit Provider Internal Medicine Hypertension Specialist ==

== ENCOUNTER 2024-04-16 07:27 | Outpatient (AMB) | payer OTHER, SELFPAY ==
--- NOTE | 2024-04-16 07:31 | MHC.OFFVIS ---
Vital Signs 04/16/24 07:36 Height 5 ft 1 in Weight 130 lb 1.164 oz BMI 24.6 BP 142/94 H Blood Pressure Location Lt brachial Position Sitting Pulse 94 Pulse Source Pulse Oximeter Pulse Oximetry (%) 98 Oxygen Delivery Method Room Air Intake Visit Reasons: Polyarthralgia Intake Note: Patient presents for Polyarthralgia. Allergies Iodinated Contrast Media [CONTRAST, IV] Allergy (Unknown, Verified 04/16/24 07:36) ANAPHYLAXIS latex [LATEX] Allergy (Unknown, Verified 04/16/24 07:36) HIVES meperidine [From DEMEROL] Allergy (Unknown, Verified 04/16/24 07:36) UNKNOWN tramadol Allergy (Unknown, Verified 04/16/24 07:36) Unknown Medication List - Last Reconciled 04/16/24 by Milka Kumar MD albuterol sulfate 90 mcg/actuation 2 inhalations inhalation Q6H PRN 30 days amlodipine 5 mg See Protocol PO DAILY 365 days docusate sodium (Colace) 100 mg PO BID hydroxychloroquine (Plaquenil) 200 mg PO BID lisinopril 40 mg (2 x 20 mg) PO DAILY oxycodone 5 mg PO Q4H PRN trazodone 25 mg PO BEDTIME HPI Comments Details: Patient is a 48-year-old female with hypertension, fibromyalgia and 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 presents for follow up Interval History: Patient last seen 01/14/2024. At that time she was being evaluated for polyarthralgias. In the past she had been told that she had a diagnosis of lupus however the evaluation at that time was not fully consistent with this. I let her know about my findings and she expressed extreme frustration with my clinical analysis. I evaluated her for Sjogren's, her bilateral Radha's tests were normal. Her nail fold capillaries were normal. Blood work was sent and patient was to follow up within a month however she expressed that she was unsatisfied with the visits and felt that she was not being listened to or heard. She states that she had plans to write a letter about her experience stating that it I had cut her off and now allowed her to tell her story. Today she is here for follow up to give the provider-patient relationship a 2nd chance Today, she continues to complain of hip and knee pain. Rheumatologic History: Undifferentiated connective tissue disease 01/2024 +HAJA 1:80, photosensitivity, polyarthralgias, malar rash, Raynaud's (normal nail fold capillaries) Initial history: Patient is a 48 y.o. with hypertension who presents for evaluation of polyarthralgias. Patient notes that she had 2 children without issue then following her second child she had 5 miscarriages between 13-18 weeks. Sought OB intervention and had progesterone shots. Had 3rd child without issue. 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 2016 - breast cancer. Double mastectomy and 12 weeks of Chemotherapy with Tamoxifen and Herceptin Started to experience joint pain. Stopped Tamoxifen. Joint pain persisted even after 4 months of cessation saw a cast iron drain pipe layer and was told that she may have mild Lupus but does not meet criteria. She opted not to start plaquenil. Joint pain: hips and knees. Hands, sometimes with swelling and stiffness but her hips and knees are the main issue. At times it is difficult to lay on her sides. Has gotten steroid injections in the past but the relief was not sustained. Pain worse in the past 6 months. Rashes: does get faint rash on cheeks and forehead. Resolves on its own. Photosensitivity Dry eyes/dry mouth No alopecia No oral/nasal ulcers Fingers change color in the cold Denies history of seizure, CVA, psychosis, history of kidney problems, history of cytopenias, history of VTE including PE or DVTs Current Rheumatology Medication(s): [facility] Medical History Trochanteric bursitis of both hips Undifferentiated connective tissue disease Fibromyalgia Polyarthralgia History of breast cancer Chronic cough Acute appendicitis Breast cancer Hypertension Surgical History S/P laparoscopic appendectomy History of appendectomy (~11/2023) History of left oophorectomy H/O breast reconstruction H/O bilateral mastectomy Social History Household Members: Spouse Housing: House Do you presently have visiting nurse or other home services: No Patient Tobacco Use Status: Never used Tobacco service: No Review of Systems Const Details: Review of Systems Constitutional: Denies fever, chills, weight loss ENT: Denies vision changes, eye pain or eye redness, dental caries, dry mouth GI: Denies nausea, vomiting, diarrhea, abdominal pain, change in BM Pulm: Denies SOB, BRAXTON, hemoptysis, wheezing Cards: Denies chest pain, palpitations Skin: Denies Raynaud's, rash, nail changes, photosensitivity, ACTIVATED SLUDGE ATTENDANT: Denies headaches, weakness, paresthesias, recurrent falls MSK: as per HPI All other systems reviewed and are unremarkable except noted above Physical Exam Vital Signs: Last Vital Signs Pulse 94 04/16/24 07:36 BP 142/94 H 04/16/24 07:36 Pulse Ox 98 04/16/24 07:36 Oxygen Delivery Method Room Air 04/16/24 07:36 BMI result Body Mass Index 24.6 Vital signs reviewed Physical Examination CONSTITUITIONAL Patient alert and cooperative. Well appearing and in no apparent painful distress HEENT Conjunctiva and sclera clear. ?Pupils equal round and reactive to light. ?No lymphadenopathy. ? CHEST/RESPIRATORY SYSTEM Normal respiratory effort and able to speak in complete sentences. ?Clear to auscultation bilaterally. ?No crackles, rales, rhonchi, wheezes heard. CARDIAC SYSTEM Regular rate and rhythm. ?S1 and S2 heard no murmurs. ?Radial pulses intact bilaterally MSK Hands: ?Good millinery designer strength bilaterally. No deformities noted. ?No synovitis noted to the MCPs, PIPs or DIPs. ?No tenderness to palpation of these joints. Wrists: ?Full range of motion at the wrists without pain. ?No tenderness to palpation or synovitis noted to the wrists. Elbows: Full range of motion without pain. No tenderness, weakness, swelling, increased warmth or erythema. Shoulders: Full range of motion without pain. No tenderness, weakness, swelling, increased warmth or erythema. Hips: Full range of motion without pain. Hip bursa: Bilateral tenderness to palpation Knees: ?Full range of motion. ?No tenderness, swelling, increased warmth or erythema.?No effusion or crepitations Ankles: Full range of motion. ?No tenderness, swelling, increased warmth or erythema.? Feet: ?Negative squeeze test. ?No tenderness to palpation or swelling of the MTPs. Tender points:? Not checked today SKIN Faint erythema noted to her face in a malar distribution Office Procedures AMB Joint Injection/Aspiration Joint Injection/Aspiration Details: Procedure was explained to the patient and consent was obtained. ? The area of interest was identified and confirmed with patient. ?This was subsequently cleaned with chlorhexidine x3. ? The area was then anesthetized using ethyl chloride spray. 40 mg Kenalog with 1 cc 1% lidocaine was injected without issue. ?Minimal to no bleeding. ?Patient tolerated procedure. Primary Site: other (left greater trochanteric bursa) Prep: site was prepped using aseptic technique and ethochloride spray was applied Injected: 40 mg of, Kenalog, with 1 mL of and 1% plain lidocaine Approach Used: other Procedure: The patient tolerated the procedure well Coding 14058 - Glenohumeral/Tronchanteric Bursa/Intraarticular Procedure code (CPT) selection complete AMB Joint Injection/Aspiration Joint Injection/Aspiration Details: Procedure was explained to the patient and consent was obtained. ? The area of interest was identified and confirmed with patient. ?This was subsequently cleaned with chlorhexidine x3. ? The area was then anesthetized using ethyl chloride spray. 40 mg Kenalog with 1 cc 1% lidocaine was injected without issue. ?Minimal to no bleeding. ?Patient tolerated procedure. Primary Site: other (right greater trochanteric bursa) Prep: site was prepped using aseptic technique and ethochloride spray was applied Injected: 40 mg of, Kenalog, with 1 mL of and 1% plain lidocaine Approach Used: other Procedure: The patient tolerated the procedure well Coding 47089 - Glenohumeral/Tronchanteric Bursa/Intraarticular Procedure code (CPT) selection complete Office Meds lidocaine (PF) 10 mg/mL (1 %) injection solution Performing Provider: Milka Kumar MD Performing Location: [facility] Administered by: Milka Kumar MD on 04/16/24 10:40 Dose Route Admin Location Dispensed Lot Number Expiration Date [facility] Applications Consultant 1 mL Infiltration left greater trochanter 2 mL [id number] 06/01/26 02402-211-40 [facility] Kenalog 40 mg/mL suspension for injection Performing Provider: Milka Kumar MD Performing Location: [facility] Administered by: Milka Kumar MD on 04/16/24 10:40 Dose Route Admin Location Dispensed Lot Number Expiration Date [facility] Applications Consultant 40 mg intrabursal left greater trochanter 1 mL [id number] 08/31/25 [address]-9 [employer] lidocaine (PF) 10 mg/mL (1 %) injection solution Performing Provider: Milka Kumar MD Performing Location: [facility] Administered by: Milka Kumar MD on 04/16/24 10:40 Dose Route Admin Location Dispensed Lot Number Expiration Date [place] [employer] Consultant 1 mL Infiltration right greater trochanter 2 mL [id number] 06/01/26 12044-404-36 [facility] Kenalog 40 mg/mL suspension for injection Performing Provider: Milka Kumar MD Performing Location: [facility] Administered by: Milka Kumar MD on 04/16/24 10:40 Dose Route Admin Location Dispensed Lot Number Expiration Date [facility] Applications Consultant 40 mg intrabursal right greater trochanter 1 mL [id number] 08/31/25 [address]-1 [employer] Results Reviewed Results Reviewed: Laboratory Tests 11/07/23 11/30/23 02/03/24 18:50 06:37 06:30 WBC 8.9 RBC 4.03 L Hgb 12.4 Hct 37.1 Plt Count 244 ESR 11 Lupus Anticoag Interp see note Sodium 140 Potassium 3.8 Chloride 104 Carbon Dioxide 26 BUN 16 Creatinine 1.30 Estimated GFR > 60 57 44 Calcium 9.5 Total Bilirubin 0.5 AST 36 H ALT 42 H Alkaline Phosphatase 76 Total Creatine Kinase 55 C-Reactive Protein 0.15 HAJA Screen POSITIVE A HAJA Titer 1:80 H Sm (Birch) Antibody <1.0 NEG SM/ALCOHOL STILL OPERATOR IgG Antibody <1.0 NEG Double Strand DNA Ab 4 Beta-2-GPI IgG Ab <2.0 Beta-2-GPI IgA Ab <2.0 Beta-2-GPI IgM Ab 2.3 Thyroglobulin Antibody <1 Thyroid Peroxidase Ab <1 Anti-Cardiolipin IgG Ab <2.0 Anti-Cardiolipin IgM Ab 3.2 Complement C3 157 Complement C4 24 Assessment & Plan Assessment & Plan (1) Undifferentiated connective tissue disease: Comment: UCTD HAJA 1:80, RP, photosensitivity, malar rash, polyarthralgias Plaquenil 04/2024 Code(s): M35.9 - Systemic involvement of connective tissue, unspecified Category: Medical Plan: #UCTD Patient is a 49-year-old with hypertension who presents for follow up. Patient does not meet criteria for any underlying connective tissue disease such as lupus, scleroderma, mixed connective tissue disease, Sjogren's or myositis. Her HAJA is weakly positive at 1:80 without any positive Birch or SSA/SSB antibodies. She does have constellation of symptoms that could represent underlying autoimmunity such as her Raynaud's, her malar rash, photosensitivity and joint pain. At this time I do not think her joint pain is related to the autoimmunity because it is not inflammatory in nature. It does not improve with movement, it was not associated with effusion or swelling or tenderness to palpation in the office. However given her concerns we will do a trial of Plaquenil to see if this will help. I understand that she has likely been through a lot of health issues in the past and that she is very frustrated with no concrete diagnosis but my concern is us trying to treat her for conditions she does not have with medications that are not benign and can have adverse side effects with maybe a little to no benefit. We will continue to follow her closely and see if there is any developing signs or symptoms (2) Fibromyalgia: Code(s): M79.7 - Fibromyalgia Category: Medical Plan: #Fibromyalgia I still think that the patient has a component of fibromyalgia which may be contributing to her disease process Will start with plaquenil for UCTD and add other medication as needed I think she would be a good candidate for low dose naltrexone in the future (3) Trochanteric bursitis of both hips: Code(s): M70.61 - Trochanteric bursitis, right hip; M70.62 - Trochanteric bursitis, left hip Category: Medical Plan: #Bilateral trochanteric bursitis S/p steroid injection It sounds like she had recalcitrant trochanteric burisitis Recalcitrant trochanteric bursitis can be caused by several factors including:?repetitive stress from overuse activities like running or stair climbing, significant hip injuries, a tight iliotibial band, leg length discrepancy, poor posture, underlying conditions like rheumatoid arthritis, improper biomechanics, and sometimes, a gluteal tendon tear?which can irritate the bursa further. Will see how the plaquenil helps treat the underlying UCTD Plan I spent 30 minutes reviewing the record and labs, taking a history, examining the patient, discussing the treatment plan and documenting in the medical record Orders: Orders AMB Joint Injection/Aspiration Today M70.61 - Trochanteric bursitis, right hip, M70.62 - Trochanteric bursitis, left hip AMB Joint Injection/Aspiration Today M70.61 - Trochanteric bursitis, right hip, M70.62 - Trochanteric bursitis, left hip Medications: New hydroxychloroquine (Plaquenil) 200 mg PO BID 180 tabs 0RF M35.9 - Systemic involvement of connective tissue, unspecified, M70.61 - Trochanteric bursitis, right hip, M70.62 - Trochanteric bursitis, left hip lidocaine (PF) 1 mL Infiltration ONCE 2 mL 0RF M70.61 - Trochanteric bursitis, right hip, M70.62 - Trochanteric bursitis, left hip lidocaine (PF) 1 mL Infiltration ONCE 2 mL 0RF M70.61 - Trochanteric bursitis, right hip, M70.62 - Trochanteric bursitis, left hip Kenalog (triamcinolone acetonide) 40 mg intrabursal ONCE 1 mL 0RF NS M70.61 - Trochanteric bursitis, right hip, M70.62 - Trochanteric bursitis, left hip Kenalog (triamcinolone acetonide) 40 mg intrabursal ONCE 1 mL 0RF NS M70.61 - Trochanteric bursitis, right hip, M70.62 - Trochanteric bursitis, left hip Discontinued prednisone 2 tabs PO for 2 days and then 1 tab a day Discontinued Reason: Doctor's Order 5 mg PO DAILY 10 tabs 0RF arthralgia Coding Level of Care Code Est Pt Level 4 (52614) Complex EM visit Add On G2211 Diagnoses Undifferentiated connective tissue disease M35.9 Fibromyalgia M79.7 Trochanteric bursitis of both hips M70.61; M70.62 CPT Codes Coding - Joint 7: 00567 - Glenohumeral/Tronchanteric Bursa/Intraarticular ([id number]) Coding - Joint 7: 75495 - Glenohumeral/Tronchanteric Bursa/Intraarticular ([id number])
[2024-04-16 07:36] VITALS: BP 142/94; PULSE 94; O2SAT 98; BMI 24.6
== END 2024-04-16 08:22 | disposition home or self-care (01) ==
PROVIDERS: PCP Nurse Practitioner Family; Visit Provider Student in an Organized Health Care Education/Training Program
DX: M35.89 Other specified systemic involvement of connective tissue (principal); M79.7 Fibromyalgia; M70.61 Trochanteric bursitis, right hip; M70.62 Trochanteric bursitis, left hip
CPT/HCPCS: 20610; 99214

== ENCOUNTER → 2024-04-16 07:27 | Outpatient (BNVA) | payer OTHER, SELFPAY | PROVIDERS: PCP Nurse Practitioner Family; Visit Provider Student in an Organized Health Care Education/Training Program | DX: M35.9 Systemic involvement of connective tissue, unspecified (principal); M70.61 Trochanteric bursitis, right hip; M70.62 Trochanteric bursitis, left hip | CPT/HCPCS: 20610; J3300 ==

== ENCOUNTER 2024-04-21 06:08 | Outpatient (REF) | payer OTHER, SELFPAY ==
[2024-04-21 06:45] LABS: MANUAL DIFF FLAG NO
[2024-04-21 06:53] LABS: Appearance Urine Cloudy; Color Urine Yellow; Glucose Urine UA Negative (Negative); Leukocyte Esterase Urine Moderate (2+) (Negative); Nitrite Urine Negative (Negative); Specific Gravity - Urine 1.025 (1.005-1.025); UMIC TRIGGER UA YES; Urine Blood Trace (Negative); Urine Ketones Negative (Negative); Urine Protein Negative (Neg-Trace)
[2024-04-21 06:57] LABS: Bacteria Urine 4+ (None Seen); Hyaline Casts Urine 0-2 /LPF (0-2); Squamous Epithelial Cell Urine >20 /HPF (0-2); WBC Urine >50 /HPF (0-5)
[2024-04-21 06:59] LABS: Alanine Aminotransferase 30 U/L (0-31); Albumin Level 4.5 g/dL (3.5-5.0); Alkaline Phosphatase 65 U/L (39-117); Anion Gap 16 (12-20); Aspartate Amino Transferase 23 U/L (5-31); Bilirubin Total 0.3 mg/dL (0.0-1.0); Blood Urea Nitrogen 21 mg/dL (9-16); Calcium 9.5 mg/dL (8.4-10.2); Carbon Dioxide 24 mmol/L (22-29); Chloride 106 mmol/L (96-108); Estimated Glomerular Filt Rate > 60; Glucose Random 109 mg/dL (60-115); Potassium 3.9 mmol/L (3.3-5.1); Sodium 142 mmol/L (135-145)
[2024-04-21 07:09] LABS: Basophils Percent Auto 0.3 % (0-2); Eosinophils Percent Auto 0.3 % (0-4); Hematocrit 37.2 % (37.0-47.0); Hemoglobin 12.5 g/dl (12.0-16.0); Imm Gran Abs Auto 0.08 X10*3/uL (0.00-0.03); Imm Gran Pct Auto 0.6 % (0.0-0.4); Lymphocytes Absolute Auto 2.9 X10*3/uL (1.2-4.9); Lymphocytes Percent Auto 21.2 % (20-40); Mean Corpuscular HGB Conc 33.6 g/dl (31.0-35.0); Mean Corpuscular Hemoglobin 30.1 pg (27.0-33.0); Mean Corpuscular Volume 89.6 fL (80.0-98.0); Mean Platelet Volume 9.5 fL (9.4-12.3); Monocytes Absolute Auto 0.9 X10*3/uL (0.1-1.2); Monocytes Percent Auto 6.3 % (2-11); Neutrophils Absolute Auto 9.7 x10*3/uL (2.0-8.3); Neutrophils Percent Auto 71.3 % (45-73); Platelet Count 263 X10*3/uL (160-400); Red Blood Count 4.15 X10*6/uL (4.20-5.50); Red Cell Distribution Width 13.1 % (11.0-16.0); White Blood Count 13.6 X10*3/uL (4.8-10.8)
[2024-04-22 09:04] LABS: Immunoglobulin E 86 kU/L (<OR=114)
[2024-04-27 14:58] LABS: Asperg fumigatus Precip Abs NEGATIVE (NEGATIVE); Micropoly faeni Abs NEGATIVE (NEGATIVE); Pigeon serum Abs NEGATIVE (NEGATIVE); Saccharo pora viridis Abs NEGATIVE (NEGATIVE); Thermo candidus Abs NEGATIVE (NEGATIVE); Thermoa vulgaris #1 NEGATIVE (NEGATIVE)
== END 2024-04-21 06:09 | disposition home or self-care (01) ==
LOC: HO.LAB 06:08
PROVIDERS: Hospitalist; Visit Provider Internal Medicine Hypertension Specialist
DX: N20.0 Calculus of kidney (principal); I10 Essential (primary) hypertension; R05.3 Chronic cough; R91.8 Other nonspecific abnormal finding of lung field
CPT/HCPCS: 36415; 80053; 81001; 82785; 85025; 86331; 86606; 86609

== ENCOUNTER 2024-05-06 11:02 | Outpatient (AMB) | payer OTHER, SELFPAY ==
[2024-05-06 11:04] VITALS: BP 88/62; PULSE 100; O2SAT 96; BMI 24.6
--- NOTE | 2024-05-06 11:04 | HO.NEPHOV ---
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 Accompanied by: Self / Same As Patient Allergies Iodinated Contrast Media [CONTRAST, IV] Allergy (Unknown, Verified 05/06/24 11:06) ANAPHYLAXIS latex [LATEX] Allergy (Unknown, Verified 05/06/24 11:06) HIVES meperidine [From DEMEROL] Allergy (Unknown, Verified 05/06/24 11:06) UNKNOWN tramadol Allergy (Unknown, Verified 05/06/24 11:06) Unknown Medication List - Last Reconciled 05/06/24 by Elio Diamond MD albuterol sulfate 90 mcg/actuation 2 inhalations inhalation Q6H PRN 30 days amlodipine 5 mg See Protocol PO DAILY 365 days docusate sodium (Colace) 100 mg PO BID hydroxychloroquine (Plaquenil) 200 mg PO BID lisinopril 40 mg (2 x 20 mg) PO DAILY oxycodone 5 mg PO Q4H PRN trazodone 25 mg PO BEDTIME HPI Comments Details: Megan is a pleasant 48-year-old woman with a history of hypertension for the past few years. She has history of SLE. She is not on any treatment at this time. She has not seen any suit attendant in more than 2 years No renal involvement. She has never seen a front desk team member. History of breast cancer about 8 years ago. She underwent bilateral mastectomy followed by chemotherapy. She has been cancer-free since. He has no active follow-up with oncology Recently blood pressure has been difficult to control lisinopril was increased from 20 mg up to 40 mg a day. In spite of this blood pressure is suboptimal and amlodipine 5 mg was added few days ago. She has been monitoring her blood pressure at home last few days blood pressure has been in the normal range. She was recently hospitalized with abdominal pain and she was found to have appendicitis she underwent laparoscopic appendicectomy and currently on oral antibiotics. 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 She has 3 children. She has had few miscarriages. She has had on and off rectal bleed. Recently there has been a drop in hemoglobin. During routine evaluation in the emergency room she was found to have bilateral renal stones. She has been asymptomatic. She was also found to have a nodule in the right lung 12/11/23 Last week she had severe flank pain ; took Oxycodone and drank lots of water Frequent urination and pain resolved; Probably passed a stone? 03/16/2024. She has been feeling fatigue and generalized body pain mostly in the hips. She was seen by Rheumatology. Workup in progress. She did not take her medications this morning since she just came from work. 05/06/24 She felt better after short course of prednisone. Currently she is on Plaquenil 200 mg b.i.d.. She feels lightheaded. She has hip pain bilaterally. She received cortisone injections from Rheumatology for presumed bursitis [facility] Medical History Trochanteric bursitis of both hips Undifferentiated connective tissue disease Fibromyalgia Polyarthralgia History of breast cancer Chronic cough Acute appendicitis Breast cancer Hypertension Surgical History S/P laparoscopic appendectomy History of appendectomy (~11/2023) History of left oophorectomy H/O breast reconstruction H/O bilateral mastectomy Social History Household Members: Spouse Housing: House Do you presently have visiting nurse or other home services: No Patient Tobacco Use Status: Never used Tobacco service: No Physical Exam Vital Signs: Last Vital Signs Pulse 100 05/06/24 11:04 BP 88/62 L 05/06/24 11:04 Pulse Ox 96 05/06/24 11:04 Oxygen Delivery Method Room Air 05/06/24 11:04 BMI result Body Mass Index 24.6 Awake. Comfortable. Neck is supple. Mucosa moist. Lungs bilateral scattered rhonchi. Heart S1-S2 heard no gallop. Abdomen soft. Extremities no edema. No involuntary movements. No myoclonus. Results Reviewed Nephrology Results: Hgb 12.5 g/dl (12.0-16.0) 04/21/24 WBC 13.6 X10*3/uL (4.8-10.8) H 04/21/24 Plt Count 263 X10*3/uL (160-400) 04/21/24 Sodium 142 mmol/L (135-145) 04/21/24 Potassium 3.9 mmol/L (3.3-5.1) 04/21/24 Chloride 106 mmol/L (96-108) 04/21/24 Carbon Dioxide 24 mmol/L (22-29) 04/21/24 BUN 21 mg/dL (9-16) H 04/21/24 Creatinine 0.83 mg/dL (0.5-1.4) 04/21/24 Calcium 9.5 mg/dL (8.4-10.2) 04/21/24 Urine Protein Negative mg/dL (Neg-Trace) 04/21/24 Urine Creatinine 120.21 mg/dL 03/15/24 Protein/Creatinin Ratio 0.07 (<0.2) 02/03/24 Assessment & Plan Assessment & Plan (1) Hypertension: Code(s): I10 - Essential (primary) hypertension Category: Medical Qualifiers: Hypertension type: primary hypertension Qualified Code(s): I10 - Essential (primary) hypertension Plan: . Middle-aged woman with a history of hypertension in the setting of ?SLE. With the current regimen blood pressure is low Stop lisinopril 40 mg for now Keep amlodipine 5 mg. Monitor blood pressure at home. If systolic blood pressure increases above 140 I have asked her to start taking lisinopril 20 mg a day. . (2) Anemia: Code(s): D64.9 - Anemia, unspecified Category: Medical Plan: HCT improved. She has noted bright red per rectum. She is unsure if she has hemorrhoids. Follow with GI. (3) Pulmonary nodule: Code(s): R91.1 - Solitary pulmonary nodule Category: Medical Plan: . .Given the history of breast cancer , referred to Pulmonary for further evaluation of the nodule. Currently being managed by Dr. Uriostegui . (4) Nephrolithiasis: Code(s): N20.0 - Calculus of kidney Category: Medical Plan: . Twenty-four urine studies were done. Results are pending Stay on low salt diet Increase PO fluid intake to maintain UO of 2 L (5) Undifferentiated connective tissue disease: Comment: UCTD HAJA 1:80, RP, photosensitivity, malar rash, polyarthralgias Plaquenil 04/2024 Code(s): M35.9 - Systemic involvement of connective tissue, unspecified Category: Medical Plan: Currently on Plaquenil. Celebrex 100 mg p.o. b.i.d. with food p.r.n. for hip pain She needs follow up with Rheumatology. At her request I will refer her to Dr. Cabello Orders: Referrals Rheumatology Referral M35.9 - Systemic involvement of connective tissue, unspecified Medications: New celecoxib (Celebrex) 100 mg PO BID PRN 20 caps 0RF pain Discontinued lisinopril Discontinued Reason: Doctor's Order 40 mg (2 x 20 mg) PO DAILY 180 tabs 1RF Coding Level of Care Code Est Pt Level 4 (20412) Diagnoses Primary hypertension I10 Hypertension type: primary hypertension Anemia D64.9 Pulmonary nodule R91.1 Nephrolithiasis N20.0 Undifferentiated connective tissue disease M35.9
== END 2024-05-06 11:33 | disposition home or self-care (01) ==
PROVIDERS: PCP Nurse Practitioner Family; Visit Provider Internal Medicine Hypertension Specialist
DX: I10 Essential (primary) hypertension (principal); D64.9 Anemia, unspecified; R91.1 Solitary pulmonary nodule; N20.0 Calculus of kidney; M35.9 Systemic involvement of connective tissue, unspecified
CPT/HCPCS: 99214

== ENCOUNTER → 2024-05-06 11:02 | Outpatient (BNVA) | payer OTHER, SELFPAY | PROVIDERS: PCP Nurse Practitioner Family; Visit Provider Internal Medicine Hypertension Specialist ==

== ENCOUNTER 2024-05-21 07:57 | Outpatient (REF) | payer OTHER, SELFPAY ==
--- NOTE | 2024-05-21 08:01 | PFT_ITS ---
Flows: FEV1: 96 % of predicted at 2.39 L FVC: 90 % of predicted at 2.80 L FEV1/FVC: 85 % Bronchodilator response: Absent Volumes: Total lung capacity: 79 % of predicted at 3.70 L Residual volume: 66 % of predicted at 0.90 L Slow vital capacity: 84 % of predicted at 2.80 L Expiratory reserve volume: 91 % of predicted at 0.82 L Diffusion capacity: Normal Impression: Mild restrictive ventilatory defect with no bronchodilator response. MTDD
[2024-05-21 08:48] VITALS: PULSE 74; O2SAT 97
== END 2024-05-21 07:58 | disposition home or self-care (01) ==
LOC: HO.RESP 07:57
PROVIDERS: PCP Nurse Practitioner Family; Visit Provider Hospitalist
DX: R05.3 Chronic cough (principal)
CPT/HCPCS: 94010; 94640; 94727; 94729

== ENCOUNTER → 2024-05-21 08:01 | Outpatient (BNV) | payer OTHER, SELFPAY | PROVIDERS: PCP Nurse Practitioner Family; Visit Provider Internal Medicine Pulmonary Disease | DX: R05.3 Chronic cough (principal) | CPT/HCPCS: 94060; 94727; 94729 ==

== ENCOUNTER 2024-06-24 08:28 | Outpatient (AMB) | payer OTHER, SELFPAY ==
[2024-06-24 08:31] VITALS: BP 140/90; PULSE 95; O2SAT 95; BMI 23.9
--- NOTE | 2024-06-24 08:31 | MHC.OFFVIS ---
Vital Signs 06/24/24 08:31 Height 5 ft 1 in Weight 126 lb 12.253 oz BMI 23.9 BP 140/90 H Blood Pressure Location Lt brachial Position Sitting Pulse 95 Pulse Source Pulse Oximeter Pulse Oximetry (%) 95 Oxygen Delivery Method Room Air Intake Visit Reasons: chronic cough/PFT FU Accompanied by: Self / Same As Patient Allergies Iodinated Contrast Media [CONTRAST, IV] Allergy (Unknown, Verified 06/24/24 08:34) ANAPHYLAXIS latex [LATEX] Allergy (Unknown, Verified 06/24/24 08:34) HIVES meperidine [From DEMEROL] Allergy (Unknown, Verified 06/24/24 08:34) UNKNOWN tramadol Allergy (Unknown, Verified 06/24/24 08:34) Unknown HPI Comments Details: The patient is a 49 year woman with a known history of breast cancer back in 2015 in addition to a diagnosis of systemic lupus erythematous. It was around the same time. The patient was recently evaluated for appendicitis and she had a CT scan of the chest demonstrating a 4 mm pulmonary nodule. She has became concerned because of history and made a referral. Patient states that she has been noticing worsening cough. Specially at nighttime. Moderate severity. Sometimes we can order from sound sleep. In addition to that she has felt more shortness of breath. She has concerns it could be related to her history of lupus. Currently not being treated. The patient did have a PET scan done back at [facility] back in 2019 when she started developing worsening body aches in addition to chest discomfort after being diagnosed with breast cancer. I did personally review the CAT scan cuts of the PET scan demonstrating no evidence of any pulmonary nodules at that time. We also did review the CT scan of the abdomen that she had recently in 11/21/2023 demonstrating the 4-5 mm pulmonary nodule in the right lower lobe and also did demonstrate that she had another 3-4 mm nodule further down on the right side. Therefore, these nodules are new. She is concerned with a history breast cancer. At this point would need a formal CT scan of the chest to better address the full chest and see if she has any other abnormalities noted. Specially with ongoing respiratory symptoms. The patient does have a rheumatological evaluation plan for the next week or so. She is going to have additional blood work at that point. The question is if these nodular densities are all related to her connective tissue disease. 06/24/2024 the patient is here for a pulmonary follow-up visit. Overall the patient has been doing okay although she does complain of difficulty sleeping fatigue shortness of breath and significant arthralgias. She is following closely Rheumatology. She states Plaquenil is not really helping much. The patient did undergo pulmonary function studies which we personally reviewed demonstrating a mild restrictive ventilatory defect. In view of her connective tissue disease when can consider shrinking lung syndrome. Although is very minimal. The CT scan of the chest was reassuring. She does have pulmonary nodules that has small subcentimeter in size that need to be followed. No evidence of any interstitial lung disease which is reassuring. The patient is having some difficulty sleeping. She does mainly work at nighttime. She needs a sleep aid to help her with sleep-wake cycle. The gabapentin was not helpful. Will going head and start her on a small dose of Ambien. [facility] Medical History (Updated 06/24/24 @ 19:03 by Gordo Uriostegui MD) Chronic restrictive lung disease Insomnia Trochanteric bursitis of both hips Undifferentiated connective tissue disease Fibromyalgia Polyarthralgia History of breast cancer Chronic cough Acute appendicitis Breast cancer Hypertension Surgical History S/P laparoscopic appendectomy History of appendectomy (~11/2023) History of left oophorectomy H/O breast reconstruction H/O bilateral mastectomy Social History Household Members: Spouse Housing: House Do you presently have visiting nurse or other home services: No Patient Tobacco Use Status: Never used Tobacco service: No Review of Systems Const Denies chills, Reports daytime sleepiness, Reports difficulty sleeping, Reports fatigue, Denies fever(s), Denies weight gain and Denies weight loss Eyes Denies blurry vision ENT Denies dizziness Card Denies chest pain, Denies leg edema, Denies lightheadedness, Denies palpitations, Reports dyspnea on exertion, Denies orthopnea and Denies other Resp Denies cough, Reports dyspnea on exertion and Denies wheezing GI Denies hematochezia and Denies change in stool character Musc Denies abnormal gait, Reports myalgias and Denies radiating pain into limb Skin/Breast Details: History of malar rash Denies rash and Denies skin ulcer Neuro Denies abnormal gait and Denies dizziness Endo Reports fatigue and Denies palpitations Von/Lymph Reports no additional complaints Aller/Immun Denies wheezing Physical Exam Vital Signs: Last Vital Signs Pulse 95 06/24/24 08:31 BP 140/90 H 06/24/24 08:31 Pulse Ox 95 06/24/24 08:31 Oxygen Delivery Method Room Air 06/24/24 08:31 BMI result Body Mass Index 23.9 Const General: comfortable HEENT Head: Yes normocephalic Neck Neck: Yes supple Chest Chest palpation & inspection: normal inspection of the chest Resp Effort & Inspection: normal respiratory effort Auscultation: clear to auscultation bilaterally Cardio Heart sounds: S1 normal heart sound present and S2 normal heart sound present GI Palpation (GI): Soft to palpation Skin General skin exam: no rashes or lesions noted Extrem General: No clubbing and No cyanosis Assessment & Plan Assessment & Plan (1) Chronic cough: Code(s): R05.3 - Chronic cough Category: Medical (2) Pulmonary nodule: Code(s): R91.1 - Solitary pulmonary nodule Category: Medical (3) SLE (systemic lupus erythematosus): Code(s): M32.9 - Systemic lupus erythematosus, unspecified Category: Medical Qualifiers: Systemic lupus erythematosus organ involvement: unspecified Systemic lupus erythematosus type: other Qualified Code(s): M32.8 - Other forms of systemic lupus erythematosus (4) History of breast cancer: Code(s): Z85.3 - Personal history of malignant neoplasm of breast Category: Medical (5) Insomnia: Code(s): G47.00 - Insomnia, unspecified Category: Medical Qualifiers: Insomnia type: primary Qualified Code(s): F51.01 - Primary insomnia (6) Chronic restrictive lung disease: Code(s): J98.4 - Other disorders of lung Category: Medical Plan ARACELI as needed as a trial trial Ambien Repeat CT chest in 12 months F/U 6 months Medications: New zolpidem 10 mg PO BEDTIME PRN 30 tabs 3RF sleep 30 days Coding Level of Care Code Est Pt Level 4 (31547) Diagnoses Chronic cough R05.3 Pulmonary nodule R91.1 Other forms of systemic lupus erythematosus, unspecified organ involvement status M32.8 Systemic lupus erythematosus organ involvement: unspecified Systemic lupus erythematosus type: other History of breast cancer Z85.3 Primary insomnia F51.01 Insomnia type: primary Chronic restrictive lung disease J98.4 Time Spent (min) 17
== END 2024-06-24 08:58 | disposition home or self-care (01) ==
LOC: HO.HPS 08:29
PROVIDERS: PCP Nurse Practitioner Family; Visit Provider Hospitalist
DX: R05.3 Chronic cough (principal); R91.1 Solitary pulmonary nodule; M32.8 Other forms of systemic lupus erythematosus; Z85.3 Personal history of malignant neoplasm of breast; F51.01 Primary insomnia; J98.4 Other disorders of lung
CPT/HCPCS: 99214

== ENCOUNTER → 2024-06-24 08:28 | Outpatient (BNVA) | payer OTHER, SELFPAY | PROVIDERS: PCP Nurse Practitioner Family; Visit Provider Hospitalist ==

== ENCOUNTER 2024-07-14 00:58 | Emergency (ER) | payer OTHER, SELFPAY ==
--- NOTE | ~2024-07-14 | CT_ITS ---
CLINICAL HISTORY: bilateral worsening hip pain, hx breast CA CT pelvis without contrast Comparison: CT/SR - CT ABDOMEN PELVIS WO IV CON - 11/07/23 19:24 EDT Findings: Bony alignment of the hip joints is anatomic. No fracture or erosion. No bony destructive change. Hip joint spaces are well preserved. Sacroiliac joints and pubic symphysis are unremarkable. Pubic rami intact. No free fluid or free air within the pelvis. No dilated bowel. IMPRESSION: No acute findings. Specifically, no fracture or erosive change about the hips. This document has been electronically signed by: Bhavin Barriga MD on 07/14/2024 01:57:00
[2024-07-14 01:01] VITALS: BP 168/97; PULSE 106; RESP 16; TEMP 36.6; O2SAT 94; BMI 23.7
--- NOTE | 2024-07-14 01:09 | ED_ITS ---
HPI - General Adult General Chief complaint: Extremity Injury, Lower Stated complaint: hip pain Time Seen by Provider: 07/14/24 01:04 Source: patient Mode of arrival: ambulatory Limitations: no limitations History of Present Illness ED Provider: Dr. Dorys Membreno HPI narrative: patient comes to the emergency room complaining of worsening bilateral hip pain. Patient states that the pain started approximately 6 months ago. Patient has been seen by rheumatology and PCP. However, patient states that the pain in bilateral hips keeps getting worse. Patient denies any trauma. patient is concerned about her symptoms secondary to the length that she has been symptomatic and also her history of lupus and breast cancer. Seems that the pain is worse at night. Patient has trouble sleeping due to the intense pain . Patient takes hydroxychloroquine at home. Related Data Home Medications ?Medication ?Instructions ?Recorded ?Confirmed lisinopril 20 mg tablet 20 mg PO BID 06/24/24 Previous Rx's ?Medication ?Instructions ?Recorded docusate sodium 100 mg capsule 100 mg PO BID #30 caps 11/10/23 (Colace) albuterol sulfate 90 mcg/actuation 2 inh inhalation Q6H PRN shortness 01/05/24 aerosol inhaler of breath or wheezing 30 days #18 grams amlodipine 5 mg tablet 5 mg PO DAILY 365 days #365 tabs 03/16/24 hydroxychloroquine 200 mg tablet 200 mg PO BID #180 tabs 04/16/24 (Plaquenil) zolpidem 10 mg tablet 10 mg PO BEDTIME PRN sleep 30 days 06/24/24 #30 tabs diclofenac sodium 1 % topical gel 4 g topical QID PRN pain #100 grams 07/14/24 (Voltaren Arthritis Pain) lidocaine 5 % topical patch 2 patch topical DAILY PRN pain #30 07/14/24 (Lidocan V) ea Allergies Allergy/AdvReac Type Severity Reaction Status Date / Time Iodinated Contrast Media Allergy Unknown ANAPHYLAXIS Verified 07/14/24 01:03 [CONTRAST, IV] latex [LATEX] Allergy Unknown HIVES Verified 07/14/24 01:03 meperidine [From DEMEROL] Allergy Unknown UNKNOWN Verified 07/14/24 01:03 tramadol Allergy Unknown Unknown Verified 07/14/24 01:03 Review of Systems 2 Review of Systems: Constitutional : No Weight loss, No Fever, No Chills, No Night Sweats, No Fatigue, No Malaise ENT/Mouth : No Hearing loss, No Ear Pain, No Nasal Congestion, No Sinus Pain, No Hoarseness, No sore throat, No Rhinorrhea, No Swallowing Difficulty Eyes: No Eye Pain, No Swelling, No Redness, No Foreign Body, No Discharge, No Vision Changes Cardiovascular : No Chest Pain, No SOB, No Dyspnea on Exertion, No Orthopnea, No Edema, No Palpitations Respiratory : No Cough, No Sputum, No Wheezing, No Smoke Exposure, No Dyspnea Gastrointestinal : No Nausea, No Vomiting, No Diarrhea, No Constipation, No abdominal Pain, No Hematochezia, No Melena Genitourinary : no irregular bleeding, No Dysuria, No Urinary Frequency, No Hematuria, No Urinary Incontinence, No Urgency, No Flank Pain, No Urinary Flow Changes, No Hesitancy Musculoskeletal : history of chronic diffuse myalgias, complaining of worsening pain in bilateral hips Skin : No Skin Lesions, No rash Neuro : No Weakness, No Numbness, No Paresthesias, No Loss of Consciousness, No Dizziness, No Headache Psych : No Anxiety/Panic, No Depression, No SI/HI/AH/VH, No Social Issues, Heme/Lymph: No Bruising, No Bleeding,No Lymphadenopathy Endocrine : No Polyuria, No Polydipsia, No Temperature Intolerance [facility] Past Medical History Medical History Chronic restrictive lung disease Insomnia Trochanteric bursitis of both hips Undifferentiated connective tissue disease Fibromyalgia Polyarthralgia History of breast cancer Chronic cough Acute appendicitis Breast cancer Hypertension Surgical History S/P laparoscopic appendectomy History of appendectomy (~11/2023) History of left oophorectomy H/O breast reconstruction H/O bilateral mastectomy Social History Social History Household Members: Spouse Housing: House Do you presently have visiting nurse or other home services: No Patient Tobacco Use Status: Never used Tobacco Advance Directives: No Do you have a plan to hurt others: No Plan service: No Physical Exam ED Vital Signs: Vital Signs - 24 hr 07/14/24 01:01 Temperature 97.9 F Pulse Rate 106 H Respiratory Rate 16 Blood Pressure 168/97 H Pulse Oximetry 94 BMI result Body Mass Index 23.7 Const Other: Appearance: Alert. Oriented X3. No acute distress. Eyes: Pupils equal, round and reactive to light. ENT: Pharynx normal. Neck: Normal inspection. Neck supple. No lymph nodes noted. No crepitus CVS: Normal heart rate and rhythm. Pulses normal. Normal S1 and S2 Respiratory: No respiratory distress. Breath sounds normal. No Wheezing. No rales Abdomen: Soft and nontender. No rigidity. No distention. musculoskeletal: Pain to palpation on bilateral hips, worse on the lateral aspect of the hips. Patient ambulatory Skin: Skin warm and dry. Normal skin color. Normal skin turgor. Extremities: No lower extremity edema. No Lacerations. No Rash Neuro: Oriented X 3. No motor deficit. No sensory deficit. Moving all extremities. No slurred speech. CN 2 through 12 grossly intact Psych: calm, cooperative, normal affect Course Course Course Narrative: patient complaining of acute on chronic bilateral hip pain. given patient's past medical history, we will go ahead and get a CAT scan Medical Decision Making Medical Decision Making [facility] Narrative: my interpretation of labs: No significant abnormality in patient's hematology chemistry CT scan does not show any acute abnormalities. Patient's worsening pain likely secondary to a lupus flare. 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 Differential Diagnosis Differential Diagnoses: The differential diagnosis associated with the presentation includes ( Lupus flare, bursitis, tendonitis, osseous lesions) Lab Data [facility] Lab Attestation statement: I reviewed the patient's lab results. 07/14/24 01:16 07/14/24 01:16 Labs: Lab Results 07/14/24 Range/Units 01:16 WBC 9.7 (4.8-10.8) X10*3/uL RBC 4.10 L (4.20-5.50) X10*6/uL Hgb 12.9 (12.0-16.0) g/dl Hct 36.6 L (37.0-47.0) % MCV 89.3 (80.0-98.0) fL MCH 31.5 (27.0-33.0) pg MCHC 35.2 H (31.0-35.0) g/dl RDW 13.2 (11.0-16.0) % Plt Count 223 (160-400) X10*3/uL MPV 9.0 L (9.4-12.3) fL Immature Gran % (Auto) 0.3 (0.0-0.4) % Neut % (Auto) 63.9 (45-73) % Lymph % (Auto) 25.9 (20-40) % [place] % (Auto) 7.9 (2-11) % Eos % (Auto) 1.7 (0-4) % Baso % (Auto) 0.3 (0-2) % Lymph # (Auto) 2.5 (1.2-4.9) X10*3/uL [place] # (Auto) 0.8 (0.1-1.2) X10*3/uL Eos # (Auto) 0.2 (0.0-0.4) X10*3/uL Baso # (Auto) 0.0 (0.0-0.2) X10*3/uL Abs Immat Gran (auto) 0.03 (0.00-0.03) X10*3/uL Absolute Neuts (auto) 6.2 (2.0-8.3) x10*3/uL Absolute Nucleated RBC 0.000 (0.0-0.012) X10*3/uL Nucleated RBC % (auto) 0.0 (0.0-0.2) /100WBC ESR 19 (0-20) MM/HR Sodium 141 (135-145) mmol/L Potassium 3.5 (3.3-5.1) mmol/L Chloride 103 (96-108) mmol/L Carbon Dioxide 24 (22-29) mmol/L Anion Gap 18 (12-20) BUN 17 H (9-16) mg/dL Creatinine 0.95 (0.5-1.4) mg/dL Estim Creat Clear Calc 53.4 Estimated GFR > 60 Random Glucose 144 H (60-115) mg/dL Calcium 9.8 (8.4-10.2) mg/dL Total Bilirubin 0.6 (0.0-1.0) mg/dL Direct Bilirubin 0.2 (0.0-0.5) mg/dL AST 33 H (5-31) U/L ALT 31 (0-31) U/L C-Reactive Protein 0.76 H (< or = 0.50) mg/dL Total Protein 7.7 (6.5-8.0) g/dL Albumin 4.4 (3.5-5.0) g/dL Independent Interpretation I performed an independent interpretation of an: CT Scan Radiology Impression Discussion of test interpretation with radiology: I have reviewed the radiologist's reading. Radiologist Impression: Bony alignment of the hip joints is anatomic. No fracture or erosion. No bony destructive change. Hip joint spaces are well preserved. Sacroiliac joints and pubic symphysis are unremarkable. Pubic rami intact. No free fluid or free air within the pelvis. No dilated bowel. IMPRESSION: No acute findings. Specifically, no fracture or erosive change about the hips. Discharge Plan Discharge Clinical Impression: Chronic hip pain, bilateral Patient Disposition: Home, Self-Care Instructions: Arthralgia (ED) Additional Instructions: Please follow-up with your primary care physician tomorrow. If you have any worsening or new symptoms, please return to the emergency room or call 911 Prescriptions: New lidocaine [Lidocan V] 5 % adhesive patch,medicated 2 patch topical DAILY PRN (Reason: pain) Qty: 30 1RF Rx Instructions: leave on most painful area for up to 12 hrs diclofenac sodium [Voltaren Arthritis Pain] 1 % gel 4 g topical QID PRN (Reason: pain) Qty: 100 0RF Rx Instructions: apply to single knee, ankle, foot; for foot includes sole/toes/top of foot No Action docusate sodium [Colace] 100 mg capsule 100 mg PO BID Qty: 30 0RF amlodipine 5 mg tablet 5 mg PO DAILY 365 Days Qty: 365 3RF Protocol: Hold for SBP< HOLD for SBP < : 90 hydroxychloroquine [Plaquenil] 200 mg tablet 200 mg PO BID Qty: 180 0RF lisinopril 20 mg tablet 20 mg PO BID zolpidem 10 mg tablet 10 mg PO BEDTIME PRN (Reason: sleep) 30 Days Qty: 30 3RF albuterol sulfate 90 mcg/actuation HFA aerosol inhaler 2 inh inhalation Q6H PRN (Reason: shortness of breath or wheezing) 30 Days Qty: 18 12RF Print Language: [place] Zealander
[2024-07-14 01:21] LABS: Basophils Percent Auto 0.3 % (0-2); Eosinophils Absolute Auto 0.2 X10*3/uL (0.0-0.4); Eosinophils Percent Auto 1.7 % (0-4); Hematocrit 36.6 % (37.0-47.0); Hemoglobin 12.9 g/dl (12.0-16.0); Imm Gran Abs Auto 0.03 X10*3/uL (0.00-0.03); Imm Gran Pct Auto 0.3 % (0.0-0.4); Lymphocytes Absolute Auto 2.5 X10*3/uL (1.2-4.9); Lymphocytes Percent Auto 25.9 % (20-40); MANUAL DIFF FLAG NO; Mean Corpuscular HGB Conc 35.2 g/dl (31.0-35.0); Mean Corpuscular Hemoglobin 31.5 pg (27.0-33.0); Mean Corpuscular Volume 89.3 fL (80.0-98.0); Monocytes Absolute Auto 0.8 X10*3/uL (0.1-1.2); Monocytes Percent Auto 7.9 % (2-11); Neutrophils Absolute Auto 6.2 x10*3/uL (2.0-8.3); Neutrophils Percent Auto 63.9 % (45-73); Platelet Count 223 X10*3/uL (160-400); Red Cell Distribution Width 13.2 % (11.0-16.0); White Blood Count 9.7 X10*3/uL (4.8-10.8)
[2024-07-14 01:44] LABS: Alanine Aminotransferase 31 U/L (0-31); Albumin Level 4.4 g/dL (3.5-5.0); Anion Gap 18 (12-20); Aspartate Amino Transferase 33 U/L (5-31); Bilirubin Direct 0.2 mg/dL (0.0-0.5); Bilirubin Total 0.6 mg/dL (0.0-1.0); Blood Urea Nitrogen 17 mg/dL (9-16); C Reactive Protein 0.76 mg/dL (< or = 0.50); Calcium 9.8 mg/dL (8.4-10.2); Carbon Dioxide 24 mmol/L (22-29); Chloride 103 mmol/L (96-108); Creatinine Clr Calc Pharmacy 53.4; Estimated Glomerular Filt Rate > 60; Glucose Random 144 mg/dL (60-115); Potassium 3.5 mmol/L (3.3-5.1); Sodium 141 mmol/L (135-145); Total Protein 7.7 g/dL (6.5-8.0)
[2024-07-14 02:02] LABS: Erythrocyte Sedimentation Rate 19 MM/HR (0-20)
[2024-07-14 02:21] LABS: Alkaline Phosphatase 82 U/L (39-117)
== END 2024-07-14 02:29 | disposition home or self-care (01) ==
PROVIDERS: Emergency Provider Emergency Medicine; PCP Nurse Practitioner Family
DX: M25.551 Pain in right hip (principal); M25.552 Pain in left hip; R10.2 Pelvic and perineal pain; Z79.899 Other long term (current) drug therapy
CPT/HCPCS: 36415; 72192; 80048; 80076; 85025; 85652; 86140; 99281; 99284

== ENCOUNTER → 2024-07-14 01:08 | Outpatient (BNV) | payer OTHER, SELFPAY | PROVIDERS: Emergency Provider Emergency Medicine; PCP Nurse Practitioner Family; Visit Provider Radiology Diagnostic Radiology | DX: G89.29 Other chronic pain (principal) | CPT/HCPCS: 72192 ==

== ENCOUNTER 2024-11-11 07:35 | Outpatient (REF) | payer OTHER, SELFPAY ==
[2024-11-11 13:11] LABS: MANUAL DIFF FLAG NO
[2024-11-11 13:19] LABS: Appearance Urine Clear; Glucose Urine UA Negative (Negative); PH 7.5 (5.0-9.0); Specific Gravity - Urine 1.010 (1.005-1.025); UMIC TRIGGER UA YES
[2024-11-11 13:24] LABS: Hematocrit 37.6 % (37.0-47.0); Hemoglobin 12.2 g/dl (12.0-16.0); Imm Gran Abs Auto 0.01 X10*3/uL (0.00-0.03); Imm Gran Pct Auto 0.1 % (0.0-0.4); Lymphocytes Absolute Auto 2.0 X10*3/uL (1.2-4.9); Mean Corpuscular HGB Conc 32.4 g/dl (31.0-35.0); Mean Corpuscular Hemoglobin 30.3 pg (27.0-33.0); Mean Corpuscular Volume 93.5 fL (80.0-98.0); NRBC Abs Auto 0.000 X10*3/uL (0.0-0.012); NRBC Pct Auto 0.0 /100WBC (0.0-0.2); Platelet Count 236 X10*3/uL (160-400); Red Blood Count 4.02 X10*6/uL (4.20-5.50); White Blood Count 8.1 X10*3/uL (4.8-10.8)
[2024-11-11 13:45] LABS: Alanine Aminotransferase 26 U/L (0-31); Albumin Level 4.5 g/dL (3.5-5.0); Alkaline Phosphatase 59 U/L (39-117); Anion Gap 13 (12-20); Aspartate Amino Transferase 30 U/L (5-31); Blood Urea Nitrogen 14 mg/dL (9-16); Calcium 9.0 mg/dL (8.4-10.2); Carbon Dioxide 26 mmol/L (22-29); Chloride 104 mmol/L (96-108); Estimated Glomerular Filt Rate > 60; Potassium 4.4 mmol/L (3.3-5.1); Sodium 139 mmol/L (135-145); Total Protein 7.3 g/dL (6.5-8.0)
[2024-11-11 14:16] LABS: Total Protein Urine Random < 7 mg/dL (<12)
== END 2024-11-11 07:36 | disposition home or self-care (01) ==
LOC: HO.HKASLDS 07:35
PROVIDERS: PCP Nurse Practitioner Family; Visit Provider Student in an Organized Health Care Education/Training Program
DX: M35.9 Systemic involvement of connective tissue, unspecified (principal); M79.7 Fibromyalgia; M70.62 Trochanteric bursitis, left hip; M70.61 Trochanteric bursitis, right hip; Z51.81 Encounter for therapeutic drug level monitoring; Z79.899 Other long term (current) drug therapy
CPT/HCPCS: 36415; 80053; 81001; 82570; 84156; 85025; 85652; 86140; 86160; 86225

== ENCOUNTER 2024-11-11 07:35 | Outpatient (AMB) | payer OTHER, SELFPAY ==
--- NOTE | 2024-11-11 07:44 | A.OFFVIS_ITS ---
Vital Signs 11/11/24 07:50 Height 5 ft 1 in Weight 125 lb 7.088 oz BMI 23.7 BP 160/90 H Blood Pressure Location Rt brachial Position Sitting Pulse 78 Pulse Source Pulse Oximeter Pulse Oximetry (%) 98 Oxygen Delivery Method Room Air Intake Visit Reasons: follow up Intake Note: Patient presents for Polyarthalgia follow up. Allergies Iodinated Contrast Media (CONTRAST, IV) Allergy (Unknown, Verified 11/11/24 07:49) ANAPHYLAXIS latex (LATEX) Allergy (Unknown, Verified 11/11/24 07:49) HIVES meperidine (From DEMEROL) Allergy (Unknown, Verified 11/11/24 07:49) UNKNOWN tramadol Allergy (Unknown, Verified 11/11/24 07:49) Unknown Medication List - Last Reconciled 11/11/24 by Milka Kumar MD albuterol sulfate 90 mcg/actuation 2 inhalations inhalation Q6H PRN 30 days amlodipine 5 mg See Protocol PO DAILY 365 days diclofenac sodium 1% (Voltaren Arthritis Pain) 4 grams topical QID PRN docusate sodium (Colace) 100 mg PO BID hydroxychloroquine 200 mg PO BID lidocaine 5% (Lidocan V) 2 patches topical DAILY PRN lisinopril 20 mg PO BID zolpidem 10 mg PO BEDTIME PRN 30 days HPI Comments Details: Patient is a 49-year-old female with hypertension, fibromyalgia and 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 presents for follow up Interval History: Patient last seen 04/16/24 with me - Not on any rheum medications - Following up after initial evaluation - Continued to have polyarticular joint pain and polymyalgias - She was given bilateral trochanteric bursa steriod injection - She was started on plaquenil for UCTD Today, - On Hydroxychloroquine 200mg bid - Trochanteric bursitis improved for 2 weeks but it returned - Thinks the Hydroxychloroquine is helping a bit with her symptoms, but has been having side effects such as nausea, vomiting - Has also started ice cold plunges which she also thinks is helping - Overall feels a bit of improvement, tossing - Received ambien [facility], which helps with falling asleep but not staying asleep Rheumatologic History: Undifferentiated connective tissue disease 01/2024 +HAJA 1:80, photosensitivity, polyarthralgias, malar rash, Raynaud's (normal nail fold capillaries) Initial history: Patient is a 48 y.o. with hypertension who presents for evaluation of polyarthralgias. Patient notes that she had 2 children without issue then following her second child she had 5 miscarriages between 13-18 weeks. Sought OB intervention and had progesterone shots. Had 3rd child without issue. 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 2016 - breast cancer. Double mastectomy and 12 weeks of Chemotherapy with Tamoxifen and Herceptin Started to experience joint pain. Stopped Tamoxifen. Joint pain persisted even after 4 months of cessation 2016/2017 saw a refining engineer and was told that she may have mild Lupus but does not meet criteria. She opted not to start plaquenil. Joint pain: hips and knees. Hands, sometimes with swelling and stiffness but her hips and knees are the main issue. At times it is difficult to lay on her sides. Has gotten steroid injections in the past but the relief was not sustained. Pain worse in the past 6 months. Rashes: does get faint rash on cheeks and forehead. Resolves on its own. Photosensitivity Dry eyes/dry mouth No alopecia No oral/nasal ulcers Fingers change color in the cold Denies history of seizure, CVA, psychosis, history of kidney problems, history of cytopenias, history of VTE including PE or DVTs Current Rheumatology Medication(s): Hydroxychloroquine 200mg bid PFSH Medical History Chronic restrictive lung disease Insomnia Trochanteric bursitis of both hips Undifferentiated connective tissue disease Fibromyalgia Polyarthralgia History of breast cancer Chronic cough Acute appendicitis Breast cancer Hypertension Surgical History S/P laparoscopic appendectomy History of appendectomy (~11/2023) History of left oophorectomy H/O breast reconstruction H/O bilateral mastectomy Social History Household Members: Spouse Housing: House Do you presently have visiting nurse or other home services: No Patient Tobacco Use Status: Never used Tobacco service: No Review of Systems Const Details: Review of Systems Constitutional: Denies fever ENT: Denies vision changes GI: nausea, vomiting dry heaves Pulm: Denies SOB, BRAXTON, hemoptysis, wheezing Cards: Denies chest pain, palpitations Skin: Denies nail changes ADVENTURE THERAPIST: Denies recurrent falls MSK: as per HPI All other systems reviewed and are unremarkable except noted above Physical Exam Exam Exam: Vital signs reviewed Physical Examination CONSTITUITIONAL Patient alert and cooperative. Well appearing and in no apparent painful distress MSK Hands * Right Hand: Able to make a fist. No swelling or tenderness to palpation of the MCPs, PIPs or DIPs. No deformities noted. * Left Hand: Able to make a fist. No swelling or tenderness to palpation of the MCPs, PIPs or DIPs. No deformities noted. Wrists * Right Wrist: Full ROM to flexion and extension. No swelling or TTP * Left Wrist: Full ROM to flexion and extension. No swelling or TTP Elbows * Right Elbow: Full ROM. No swelling or TTP. No TTP of the medial epicondyle. TTP of the lateral epicondyle * Left Elbow: Full ROM. No swelling or TTP. No TTP of the medial epicondyle. TTP of the lateral epicondyle Shoulders * Right shoulder: Full ROM. No swelling noted. No TTP of the AC joint. No TTP of the subacromial bursa. No TTP of the posterior shoulder * Left shoulder: Full ROM. No swelling noted. No TTP of the AC joint. No TTP of the subacromial bursa. No TTP of the posterior shoulder Hip bursa: Tenderness to palpation bilaterally Knees * Right knee: Full ROM. No swelling noted. No TTP of the knee joint line. No TTP of pes anserine bursa * Left knee: Full ROM. No swelling noted. No TTP of the knee joint line. No TTP of pes anserine bursa. Ankles * Right ankle: Good ankle dorsiflexion and plantar flexion. No swelling. No TTP of the ankle joint * Left ankle: Good ankle dorsiflexion and plantar flexion. No swelling. No TTP of the ankle joint Feet * Right foot: Negative squeeze test * Left foot: Negative squeeze test Tender points? * Tenderness to palpation of the bilateral trapezius, supraspinatus, anterior costochondral junctions, bilateral suboccipital muscle insertions Vital Signs: Last Vital Signs Pulse 78 11/11/24 07:50 BP 160/90 H 11/11/24 07:50 Pulse Ox 98 11/11/24 07:50 Oxygen Delivery Method Room Air 11/11/24 07:50 BMI result Body Mass Index 23.7 Results Reviewed Results Reviewed: Laboratory Tests 02/03/24 04/21/24 07/14/24 06:30 06:39 01:16 WBC 9.7 RBC 4.10 L Hgb 12.9 Hct 36.6 L Plt Count 223 ESR 19 Sodium 141 Potassium 3.5 Chloride 103 Carbon Dioxide 24 BUN 17 H Creatinine 0.95 AST 23 33 H ALT 30 31 C-Reactive Protein 0.15 0.76 H Laboratory Tests 02/03/24 06:30 HAJA Screen POSITIVE A HAJA Titer 1:80 H HAJA Pattern dense fine speckled Sm (Birch) Antibody <1.0 NEG SM/MONUMENT CARVER IgG Antibody <1.0 NEG Double Strand DNA Ab 4 Beta-2-GPI IgG Ab <2.0 Beta-2-GPI IgA Ab <2.0 Beta-2-GPI IgM Ab 2.3 Anti-Cardiolipin IgG Ab <2.0 Anti-Cardiolipin IgM Ab 3.2 Complement C3 157 Complement C4 24 Assessment & Plan Assessment & Plan (1) Undifferentiated connective tissue disease: Comment: UCTD HAJA 1:80, RP, photosensitivity, malar rash, polyarthralgias Plaquenil 04/2024 Code(s): M35.9 - Systemic involvement of connective tissue, unspecified Category: Medical Plan: #UCTD Patient is a 49-year-old with hypertension who presents for follow up. Patient does not meet criteria for any underlying connective tissue disease such as lupus, scleroderma, mixed connective tissue disease, Sjogren's or myositis. Her HAJA is weakly positive at 1:80 without any positive Birch or SSA/SSB antibodies. In fact her HAJA pattern is dense fine speckled which is a normal pattern. She does have constellation of symptoms that could represent underlying autoimmunity such as her Raynaud's, her malar rash, photosensitivity and joint pain. At this time I do not think her joint pain is related to the autoimmunity because it is not inflammatory in nature. It does not improve with movement, it was not associated with effusion or swelling or tenderness to palpation in the office. She did have some improvement on the plaquenil with significant side effects. Her exam today again is more consistent with fibromyalgia with bilateral epicondylitis, bilateral trochanteric bursitis, bilateral trapezius muscle point tenderness, anterior costochondral tenderness and bilateral pes anserine tenderness. Given that the exam today is more consistent with fibromyalgia we will trial low dose naltrexone in preference of increased immunosuppression Plan - Decrease Hydroxychloroquine 200mg daily - Start naltrexone 4.5mg nightly - Labs today: CBC, CMP, ESR, CRP, C3, C4, dsDNA, UA, UPC - RTC 6 months (2) Fibromyalgia: Code(s): M79.7 - Fibromyalgia Category: Medical Plan: #Fibromyalgia Exam today again more consistent with fibromyalgia Will start low dose naltrexone (3) Trochanteric bursitis of both hips: Code(s): M70.61 - Trochanteric bursitis, right hip; M70.62 - Trochanteric bursitis, left hip Category: Medical Plan: #Bilateral trochanteric bursitis Recalcitrant trochanteric burisitis Recalcitrant trochanteric bursitis can be caused by several factors including:?repetitive stress from overuse activities like running or stair climbing, significant hip injuries, a tight iliotibial band, leg length discrepancy, poor posture, underlying conditions like rheumatoid arthritis, improper biomechanics, and sometimes, a gluteal tendon tear?which can irritate the bursa further. Did not improve after steroid injection (4) Encounter for monitoring of hydroxychloroquine therapy: Code(s): Z51.81 - Encounter for therapeutic drug level monitoring; Z79.899 - Other termite exterminator (current) drug therapy Plan: #Long-term Use of Hydroxychloroquine Discussed with patient the risks and benefits of hydroxychloroquine in managing the rheumatic condition Benefits include: - Reduced pain, reduce mortality, maintenance of remission and reduction of flares Risks include: - GI upset, skin hyperpigmentation, retinal toxicity (especially after more than 5 years of use), myopathy Advised yearly ophthalmology visits Plan I spent 30 minutes reviewing the record and labs, taking a history, examining the patient, discussing the treatment plan and documenting in the medical record Medications: New naltrexone 4.5 mg PO .nightly 90 caps 1RF M79.7 - Fibromyalgia Changed From hydroxychloroquine 200 mg PO BID 180 tabs 1RF M35.9 - Systemic involvement of connective tissue, unspecified, M70.61 - Trochanteric bursitis, right hip, M70.62 - Trochanteric bursitis, left hip To hydroxychloroquine 200 mg PO DAILY 90 tabs 1RF 90 days M35.9 - Systemic involvement of connective tissue, unspecified, M70.61 - Trochanteric bursitis, right hip, M70.62 - Trochanteric bursitis, left hip Coding Level of Care Code Est Pt Level 4 (52064) Complex EM visit Add On G2211 Diagnoses Undifferentiated connective tissue disease M35.9 Fibromyalgia M79.7 Trochanteric bursitis of both hips M70.61; M70.62 Encounter for monitoring of hydroxychloroquine therapy Z51.81; Z79.899
[2024-11-11 07:50] VITALS: BP 160/90; PULSE 78; O2SAT 98; BMI 23.7
== END 2024-11-11 08:14 | disposition home or self-care (01) ==
LOC: HO.RHES 07:36
PROVIDERS: PCP Nurse Practitioner Family; Visit Provider Student in an Organized Health Care Education/Training Program
DX: M35.9 Systemic involvement of connective tissue, unspecified (principal); M79.7 Fibromyalgia; M70.61 Trochanteric bursitis, right hip; M70.62 Trochanteric bursitis, left hip; Z51.81 Encounter for therapeutic drug level monitoring; Z79.899 Other long term (current) drug therapy
CPT/HCPCS: 99214